=== PATIENT | female | born 1945 | race Caucasian/White ===

== ENCOUNTER 2016-05-18 10:39 | Inpatient (IN) | payer MEDICARE ==
[2016-05-18] MEDS ORDERED: SODIUM CHLORIDE 0.9% 500 ML IV STA (10:56)
--- NOTE | 2016-05-18 11:08 | ED ---
General Adult HPI - General Stated complaint: General Weakness Time Seen by Provider: 05/18/16 10:52 Source: patient, EMS, RN notes reviewed Mode of arrival: EMS Limitations: physical limitation - History of Present Illness Initial comments: 70-year-old female presents emergency Department chief complaint of weakness, fall. Patient states that he has chronic severe lymphedema of bilateral lower extremities and states that she is essentially nonambulatory. Patient states that she has seen multiple physicians for this and currently sees visiting physicians. Patient states that over the last few days she's had nausea vomiting diarrhea. States that she feels very rundown, weak. Patient states that she tried to get up and fell today. She states when the lift her off the ground that she believes that her legs were injured in that she has some bleeding/leaking. Patient has had anemia in the past in which she's been transfused between her lower extremities and her vaginal bleeding that she's had in the past. Patient denies any known fever, chills. Patient denies any chest pain, shortness of breath. - Related Data Home Medications Medication Instructions Recorded Confirmed Cranberry Conc/C/Bacill Coag 1 tab PO HS 04/26/14 05/18/16 [Cranberry Tablet] [place]-3 Fatty Acids/Fish Oil [Fish 2 cap PO HS 04/26/14 05/18/16 Oil 1,000 mg Softgel] Oxybutynin Chloride [Ditropan] 5 mg PO TID 04/26/14 05/18/16 Ferrous Sulfate [Iron (65 MG 325 mg PO TID 07/04/14 05/18/16 Elemental)] Cholecalciferol [Vitamin D3] 1,000 unit PO DAILY 01/27/15 05/18/16 Cyanocobalamin [Vitamin B-12] 500 mcg PO DAILY 01/27/15 05/18/16 ALPRAZolam [Xanax] 0.25 mg PO DAILY PRN 05/10/15 05/18/16 Megestrol [Megace] 80 mg PO BID 05/18/16 05/18/16 NIFEdipine XL [Procardia Xl] 30 mg PO DAILY 05/18/16 05/18/16 traMADol HCL [Ultram] 50 mg PO BID PRN 05/18/16 05/18/16 Previous Rx's Medication Instructions Recorded cloNIDine HCL [Catapres] 0.2 mg PO TID tab 10/18/15 Allergies Allergy/AdvReac Type Severity Reaction Status Date / Time hydrocodone AdvReac Hallucinati Verified 05/18/16 12:35 ons Review of Systems ROS Statement: Those systems with pertinent positive or pertinent negative responses have been documented in the HPI. ROS Other: All systems not noted in ROS Statement are negative. Past Medical History Past Medical History: Cancer, Hyperlipidemia, Hypertension, Osteoarthritis (OA) , Pneumonia Additional Past Medical History / Comment(s): urinary leakage, BILATERAL BREAST CANCER, LYMPHEDEMA BILATERAL LEGS only walks short distances and unable to drive in a car. [place] visitng physicians, sores on back of legs that bleed periodically , NO BLOOD PRESSURE on LEFTARM due ot lymph node removal chronic anemia since 2013, UTI'S, on gout medicine for increase uric acid level but stated never ahd a flare up of gout. morbid obesity cellulitis of lower extremities History of Any Multi-Drug Resistant Organisms: None Reported Past Surgical History: Adenoidectomy, Breast Surgery, Tonsillectomy Additional Past Surgical History / Comment(s): partial mastectomy left breast, LUMPECTOMY REMOVED FROM RIGHT BREAST, CHEMO AND RAD ON LEFT BREAST, RADIATION ON RIGHT BREAST, lymphnodes removed left breast Past Anesthesia/Blood Transfusion Reactions: No Reported Reaction Past Psychological History: No Psychological Hx Reported, Anxiety Additional Psychological History / Comment(s): Patient relates that her upper body has gone from a 4X to a 1X size. No experience. No travels. No animal exposures. Smoking Status: Never smoker Past Alcohol Use History: None Reported Past Drug Use History: None Reported - Past Family History Father Family Medical History: Coronary Artery Disease (CAD), Diabetes Mellitus Additional Family Medical History / Comment(s): has a pig valve Mother Family Medical History: Chest Pain / Angina, Diabetes Mellitus Additional Family Medical History / Comment(s): weak heart General Exam General appearance: alert, in no apparent distress, obese Head exam: Present: atraumatic, normocephalic, normal inspection Eye exam: Present: normal appearance, PERRL, EOMI. Absent: scleral icterus, conjunctival injection, periorbital swelling Respiratory exam: Present: normal lung sounds bilaterally. Absent: respiratory distress, wheezes, rales, rhonchi, stridor Cardiovascular Exam: Present: regular rate, normal rhythm, normal heart sounds. Absent: systolic murmur, diastolic murmur, rubs, gallop, clicks GI/Abdominal exam: Present: soft, normal bowel sounds. Absent: distended, tenderness, guarding, rebound, rigid Extremities exam: Present: other (Bilateral lower extremities there is severe lymphedema noted there is some weeping areas) Neurological exam: Present: alert, oriented X3, CN II-XII intact Skin exam: Present: warm, dry, intact, normal color. Absent: rash Course Vital Signs 05/18/16 11:04 Temperature 96.7 F L Pulse Rate 111 H Respiratory 20 Rate Blood Pressure 155/70 O2 Sat by Pulse 100 Oximetry Medical Decision Making - Lab Data Result diagrams: 05/18/16 11:53 05/18/16 11:53 Lab Results 05/18/16 05/18/16 05/18/16 Range/Units 11:53 11:53 11:53 WBC 19.3 H (3.8-10.6) k/uL RBC 3.68 L (3.80-5.40) m/uL Hgb 9.8 L (11.4-16.0) gm/dL Hct 32.0 L (34.0-46.0) % MCV 86.9 (80.0-100.0) fL MCH 26.6 (25.0-35.0) pg MCHC 30.6 L (31.0-37.0) g/dL RDW 15.0 (11.5-15.5) % Plt Count 362 (150-450) k/uL Neutrophils % 91 % Lymphocytes % 2 % Monocytes % 6 % Eosinophils % 0 % Basophils % 0 % Neutrophils # 17.6 H (1.3-7.7) k/uL Lymphocytes # 0.4 L (1.0-4.8) k/uL Monocytes # 1.1 H (0-1.0) k/uL Eosinophils # 0.1 (0-0.7) k/uL Basophils # 0.0 (0-0.2) k/uL Manual Slide Review Performed Hypochromasia Marked Poikilocytosis (manual Present PT 10.2 (9.0-12.0) sec INR 1.0 (<1.1) APTT 19.2 L (22.0-30.0) sec Sodium 131 L (137-145) mmol/L Potassium 6.8 H* (3.5-5.1) mmol/L Chloride 106 (98-107) mmol/L Carbon Dioxide 12 L (22-30) mmol/L Anion Gap 13 mmol/L BUN 70 H (7-17) mg/dL Creatinine 2.37 H (0.52-1.04) mg/dL Est GFR (MDRD) Af Amer 25 (>60 ml/min/1.73 sqM) Est GFR (MDRD) Non-Af 20 (>60 ml/min/1.73 sqM) Glucose 147 H (74-99) mg/dL Plasma Lactic Acid Salvador (0.7-2.0) mmol/L Calcium 9.7 (8.4-10.2) mg/dL Magnesium 2.2 (1.6-2.3) mg/dL Total Bilirubin 0.6 (0.2-1.3) mg/dL AST 19 (14-36) U/L ALT 29 (9-52) U/L Alkaline Phosphatase 96 (38-126) U/L Total Creatine Kinase (30-135) U/L CK-MB (CK-2) (0.0-2.4) ng/mL CK-MB (CK-2) Rel Index Troponin I (0.000-0.034) ng/mL NT-Pro-B Natriuret Pep pg/mL Total Protein 5.8 L (6.3-8.2) g/dL Albumin 2.7 L (3.5-5.0) g/dL 05/18/16 05/18/16 05/18/16 Range/Units 11:53 11:53 11:53 WBC (3.8-10.6) k/uL RBC (3.80-5.40) m/uL Hgb (11.4-16.0) gm/dL Hct (34.0-46.0) % MCV (80.0-100.0) fL MCH (25.0-35.0) pg MCHC (31.0-37.0) g/dL RDW (11.5-15.5) % Plt Count (150-450) k/uL Neutrophils % % Lymphocytes % % Monocytes % % Eosinophils % % Basophils % % Neutrophils # (1.3-7.7) k/uL Lymphocytes # (1.0-4.8) k/uL Monocytes # (0-1.0) k/uL Eosinophils # (0-0.7) k/uL Basophils # (0-0.2) k/uL Manual Slide Review Hypochromasia Poikilocytosis (manual PT (9.0-12.0) sec INR (<1.1) APTT (22.0-30.0) sec Sodium (137-145) mmol/L Potassium (3.5-5.1) mmol/L Chloride (98-107) mmol/L Carbon Dioxide (22-30) mmol/L Anion Gap mmol/L BUN (7-17) mg/dL Creatinine (0.52-1.04) mg/dL Est GFR (MDRD) Af Amer (>60 ml/min/1.73 sqM) Est GFR (MDRD) Non-Af (>60 ml/min/1.73 sqM) Glucose (74-99) mg/dL Plasma Lactic Acid Salvador 1.7 (0.7-2.0) mmol/L Calcium (8.4-10.2) mg/dL Magnesium (1.6-2.3) mg/dL Total Bilirubin (0.2-1.3) mg/dL AST (14-36) U/L ALT (9-52) U/L Alkaline Phosphatase (38-126) U/L Total Creatine Kinase 174 H (30-135) U/L CK-MB (CK-2) 2.8 H* (0.0-2.4) ng/mL CK-MB (CK-2) Rel Index 1.6 Troponin I <0.012 (0.000-0.034) ng/mL NT-Pro-B Natriuret Pep 700 pg/mL Total Protein (6.3-8.2) g/dL Albumin (3.5-5.0) g/dL Disposition Clinical Impression: Dehydration, Hyperkalemia, Acute kidney injury, Lymphedema of both lower extremities, Nausea & vomiting Disposition: ADMITTED IP TO THIS [facility] Condition: Stable
[2016-05-18 12:27] LABS: Calcium 9.7 mg/dL (8.4-10.2); Magnesium 2.2 mg/dL (1.6-2.3); Total Bilirubin 0.6 mg/dL (0.2-1.3); Total Protein 5.8 g/dL (6.3-8.2)
--- NOTE | 2016-05-18 12:30 | XR ---
EXAMINATION TYPE: XR chest 2V DATE OF EXAM: 05/18/2016 12:23 PM COMPARISON: 02/03/2015 HISTORY: Weakness and nausea TECHNIQUE: Frontal and lateral views of the chest are obtained. FINDINGS: Heart is normal. Lungs are clear. Costophrenic angles are clear. There are no hilar masses . The bony thorax is intact. There is probably osteopenia. Thoracic aorta is atheromatous. IMPRESSION: No active cardiopulmonary disease. There is clearing of pleural reaction or fluid at the lung bases compared to old exam.
[2016-05-18 12:31] LABS: Potassium 6.8 mmol/L (3.5-5.1)
[2016-05-18 12:33] LABS: Basophils % (A) 0 %; CH 26.7; CHCM 30.8; Eosinophils # (A) 0.1 k/uL (0-0.7); Eosinophils % (A) 0 %; HGB 9.8 gm/dL (11.4-16.0); Hypochromasia Marked; Luc # (Auto) 0.15; Luc % (Auto) 1; Lymphocytes # (A) 0.4 k/uL (1.0-4.8); Lymphocytes % (A) 2 %; MCH 26.6 pg (25.0-35.0); MCHC 30.6 g/dL (31.0-37.0); MCV 86.9 fL (80.0-100.0); Mean Platelet Volume 7.6; Monocytes # (A) 1.1 k/uL (0-1.0); Monocytes % (A) 6 %; Neutrophils # (A) 17.6 k/uL (1.3-7.7); Neutrophils % (A) 91 %; RBC 3.68 m/uL (3.80-5.40); WBC 19.3 k/uL (3.8-10.6); WBC (Perox) 19.45
[2016-05-18] MEDS ORDERED: SODIUM BICARB 8.4% 50 ML SYR (1 MEQ/ML) IV STA (12:47)
[2016-05-18] MEDS ORDERED: INSULIN REGULAR 100 UNIT/ML VIAL IV ONE (12:47)
[2016-05-18] MEDS ORDERED: DEXTROSE 50%-WATER 50 ML SYRINGE IVP STA (12:47)
[2016-05-18] MEDS ORDERED: SODIUM POLYSTYRENE SULFONATE 15 GM/60 ML BOTTLE PO STA ×2 (12:48→22:04)
[2016-05-18 12:49] LABS: Manual Review Performed
[2016-05-18 12:57] LABS: Creatine Kinase 174 U/L (30-135)
[2016-05-18 13:10] LABS: Troponin I <0.012 ng/mL (0.000-0.034)
[2016-05-18 13:15] LABS: Creatine Kinase MB 2.8 ng/mL (0.0-2.4)
[2016-05-18 13:23] LABS: Prothrombin Time 10.2 sec (9.0-12.0)
[2016-05-18] MEDS ORDERED: SODIUM CHLORIDE 0.9% 1,500 ML IV ONE (13:23)
[2016-05-18 13:26] LABS: Partial Thromboplastin Time 19.2 sec (22.0-30.0)
[2016-05-18] MEDS ORDERED: ONDANSETRON 4 MG/2 ML VIAL IVP PRN (13:43)
[2016-05-18] MEDS ORDERED: NALOXONE 0.4 MG/ML 1 ML VIAL IV PRN (13:43)
[2016-05-18] MEDS ORDERED: ACETAMINOPHEN TAB 325 MG TAB PO PRN (13:43)
[2016-05-18 13:50] LABS: Appearance,Urine Cloudy (Clear); Bacteria,Urine Many /hpf; Bilirubin,Urine Negative (Negative); Glucose,Urine (UA) Negative (Negative); Ketones,Urine Negative (Negative); Leukocyte Esterase,Urine Large (Negative); Mucus,Urine Occasional /hpf; Nitrite,Urine Negative (Negative); Particle Count 28576; Protein,Urine Trace (Negative); RBC,Urine 15 /hpf (0-5); Specific Gravity,Urine 1.014 (1.001-1.035); UA Billing (MACRO vs. MICRO) MICRO; Urobilinogen,Urine <2.0 mg/dL (<2.0); WBC,Urine 106 /hpf (0-5)
[2016-05-18] MEDS ORDERED: LEVOFLOXACIN 500MG-D5W PMX 500 MG in DEXTROSE/WATER 1 100ML.BAG IVPB STA (14:02)
[2016-05-18] MEDS: SODIUM CHLORIDE 0.9% 1,000 ML IV SCH (15:20)
[2016-05-18 15:33] LABS: Glucose,Whole Blood 118 mg/dL (75-99)
[2016-05-18] MEDS ORDERED: FERROUS SULFATE 325 MG TAB PO SCH (18:00)
[2016-05-18] MEDS: OXYBUTYNIN CHLORIDE 5 MG TAB PO SCH (18:36)
[2016-05-18] MEDS: cloNIDine HCL 0.2 MG TAB PO SCH (18:36)
[2016-05-18 21:05] LABS: Calcium 9.2 mg/dL (8.4-10.2); Potassium 5.8 mmol/L (3.5-5.1)
[2016-05-19] MEDS: ALPRAZolam 0.25 MG TAB PO PRN (04:32)
[2016-05-19 07:48] LABS: Potassium 4.7 mmol/L (3.5-5.1)
[2016-05-19] MEDS ORDERED: PANTOPRAZOLE 40 MG/10 ML VIAL IV SCH (09:00)
[2016-05-19] MEDS: MEGESTROL 40 MG TAB PO SCH ×4 (09:17→20:53)
[2016-05-19] MEDS: NIFEdipine XL 30 MG TAB.ER.24 PO SCH (09:17)
[2016-05-19] MEDS: OXYBUTYNIN CHLORIDE 5 MG TAB PO SCH ×4 (09:17→20:52)
[2016-05-19] MEDS: cloNIDine HCL 0.2 MG TAB PO SCH ×4 (09:17→20:52)
--- NOTE | 2016-05-19 12:42 | HP ---
DATE OF ADMISSION: 05/18/2016 PRESENTING COMPLAINT: Weak and tired. HISTORY OF PRESENTING COMPLAINT: This is a very pleasant lady with is a very unfortunate condition to include, which is chronic severe disfiguring lymphedema with severe renal stasis and stasis dermatitis lower extremity. Other chronic stable conditions include essential hypertension, osteoarthritis, chronic urinary incontinence, chronic vascular lesion of the lower back. The patient pretty much sits up in a chair and has her legs weep all the time and can give bedpan when she needs it. The patient developed flu like illness at home. Nausea, vomiting, tired, unable to eat and went to the bathroom fell down and was unable to get up and EMS had to be called out. Patient is feeling very weak and tired. When she arrived here, she was found to have potassium of 6.8. BUN 70, creatinine of 2.37, acute renal failure, also found to have a UTI and she is being admitted. is at bedside. Has been at the bedside. REVIEW OF SYSTEMS: CONSTITUTIONAL: Tired. HEENT: None. RESPIRATORY: None. CARDIOVASCULAR: None. GASTROINTESTINAL: None. GENITOURINARY: Urinary frequency. Dermatological: Chronic skin changes. HEMATOLOGICAL: None. LYMPHATIC: None. PSYCHIATRY: None. Past medical history of chronic disfigured lymphedema with severe renal status and stasis dermatitis, obesity; body mass index 60, essential hypertension, osteoarthritis, chronic urinary incontinence. Medical debility, chronic vascular lesion of the lower back. PAST SURGICAL HISTORY: Adenoidectomy, breast surgery, tonsillectomy, partial mastectomy left breast, lumpectomy removal right breast, chemo and radiation the left breast, lymph node removed from her left breast; additional past medical history includes chronic anemia and hyperuricemia. SOCIAL HISTORY: . No smoking. No alcohol. FAMILY HISTORY: Diabetes mellitus. HOME MEDICATIONS: 1. Ultram 50 mg p.o. b.i.d. p.r.n. 2. Catapres 0.2 mg p.o. t.i.d. 3. Ditropan 5 mg p.o. t.i.d. 4. Fish oil 2 capsules p.o. q.h.s. 5. Procardia XL 30 mg a day. 6. Megace 80 mg b.i.d., 7. Vitamin B12 500 mcg a day. 8. Cranberry tablet, 1 tablet p.o. q.h.s. 9. Vitamin D 3000 units p.o. daily. 10. Xanax 0.25 p.o. daily p.r.n. ALLERGY TO HYDROCODONE. PHYSICAL EXAMINATION: Vital signs on presentation: Temperature 96.7, pulse 101, respiration 20, blood pressure 115/60, pulse ox 100% on 2 liters. GENERAL APPEARANCE: Morbidly obese, BMI ( ) lying in bed, tired-appearing. EYES: Pupils equal. Conjunctivae normal. HEENT: External appearance of nose and ears normal. Oral cavity dry. NECK: JVD unable to assess. Mass not palpable. RESPIRATORY: Effort increased. LUNGS: Distant breath sounds. CARDIOVASCULAR: Heart sounds muffled. ABDOMEN: Distended. Large. Lower extremities venostasis. Stasis dermatitis from breakdown of skin. INVESTIGATIONS: White count 19.3, hemoglobin 9.8, potassium 6.8. BUN 70, creatinine 2.37. UA positive for leukocyte esterase, WBC. ASSESSMENT: 1. Possible urinary tract infection with sepsis, present on admission. 2. Acute severe renal failure, likely prerenal from decreased oral intake. 3. Hyperkalemia in the setting of renal failure. 4. Chronic severe disfiguring lymphedema with severe venous stasis and chronic stasis dermatitis of both lower extremities. 5. Obesity, body mass index more than 58. 6. Essential hypertension. 7. Bilateral osteoarthritis, chronic. 8. Chronic urinary stress incontinence. 9. Medical debility, unable to carry out ADLs. 10. Chronic ( ) lower back. PLAN: Patient is put on IV fluids, ceftriaxone. Home medications will be resumed. Will give the patient Kayexalate. Care was discussed with the patient and son at the bedside. Questions were answered.
[2016-05-19] MEDS: SODIUM CHLORIDE 0.9% 1,000 ML IV SCH ×3 (15:16→20:57)
[2016-05-19] MEDS: traMADol 50 MG TAB PO PRN (21:42)
[2016-05-19] MEDS: ENOXAPARIN 40 MG/0.4 ML SYRINGE SQ SCH (21:44)
--- NOTE | 2016-05-19 22:54 | PN ---
DATE OF SERVICE: 05/19/2016 PRESENTING COMPLAINT: Weak and tired. INTERVAL HISTORY: I saw this patient this morning as part of the overflow in the ER whose chronic conditions ( ) disfiguring lymphedema. Patient presented with a UTI and sepsis and renal failure from decreased oral intake, hyperkalemia. She feels a shade better. Her is at the bedside. Did eat a little bit this morning. Review of systems done for constitutional, cardiovascular, GI, pulmonary; relevant findings as above. Current medications include IV ceftriaxone. On examination, afebrile, pulse 103, respiration 16, blood pressure 147/74, pulse ox 98% on room air. GENERAL APPEARANCE: Lying in bed, tired-appearing. EYES: Pupils equal. Conjunctivae normal. NECK: JVD not raised. Mass not palpable. RESPIRATORY: Effort normal. LUNGS: Distant breath sounds. CARDIOVASCULAR: First and second sounds normal. ABDOMEN: Soft, nontender. Skin changes unchanged. INVESTIGATIONS: Potassium 4.7. BUN 55, creatinine 1.94. Urine culture growing Gram-negative bacilli. ASSESSMENT: 1. Acute urinary tract infection with sepsis, growing Gram-negative bacilli, present on admission. 2. Acute severe renal failure, prerenal, from decreased oral intake, present on admission, slow to respond. 3. Hyperkalemia in the setting of renal failure, improving. 4. Chronic severe disfiguring lymphedema on both lower extremities with severe venostasis and chronic stasis dermatitis, lower extremities. 5. Obesity; body mass index more than 58. 6. Essential hypertension. 7. Bilateral osteoarthritis, chronic. 8. Chronic urinary stress incontinence. 9. Medical debility; unable to carry out activities of daily living. 10. Chronic hemangioma on the lower back. PLAN: Continue current medication and treatment plan, including antibiotics. Patient will be maintained on IV fluids. Care was discussed with the patient and her at the bedside. Repeat labs.
[2016-05-20] MEDS: OXYBUTYNIN CHLORIDE 5 MG TAB PO SCH ×4 (00:39→21:10)
[2016-05-20] MEDS: cloNIDine HCL 0.2 MG TAB PO SCH ×4 (00:39→21:09)
[2016-05-20] MEDS: SODIUM CHLORIDE 0.9% 1,000 ML IV SCH ×3 (04:47→23:48)
[2016-05-20] MEDS: NIFEdipine XL 30 MG TAB.ER.24 PO SCH (08:08)
[2016-05-20] MEDS: MEGESTROL 40 MG TAB PO SCH ×2 (08:08→21:09)
[2016-05-20] MEDS: PANTOPRAZOLE 40 MG TABLET PO SCH (08:09)
[2016-05-20 09:19] VITALS: BMI 58.2
[2016-05-20 10:34] LABS: Calcium 8.5 mg/dL (8.4-10.2); Potassium 3.4 mmol/L (3.5-5.1)
[2016-05-20] MEDS: ENOXAPARIN 40 MG/0.4 ML SYRINGE SQ SCH (21:09)
[2016-05-21] MEDS: traMADol 50 MG TAB PO PRN (05:06)
[2016-05-21] MEDS: SODIUM CHLORIDE 0.9% 1,000 ML IV SCH ×3 (06:31→21:46)
--- NOTE | 2016-05-21 08:23 | PN ---
DATE OF SERVICE: 05/20/2016 PRESENTING COMPLAINT: Weak and tired. INTERVAL HISTORY: This is patient with disfiguring lymphedema presented with urinary tract infection with sepsis, renal failure, doing much better, is at bedside. Eating better. No further diarrhea. ( ) physical therapy. Review of systems for constitutional, cardiovascular, GI, pulmonary; relevant findings as above. Current medications reviewed that include IV ceftriaxone. On examination, temperature 98.3, pulse 94, respiration 20, blood pressure 160/70, pulse ox 99% on room air. GENERAL APPEARANCE: Lying in bed, awake, looking better. EYES: Pupils equal. Conjunctivae normal. NECK: JVD not raised. Mass not palpable. RESPIRATORY: Effort normal. LUNGS: Diminished distant breath sounds. CARDIOVASCULAR: Heart sounds muffled. ABDOMEN: Soft, nontender. ( ). PSYCHIATRY: Alert and oriented x3. Mood and affect better. INVESTIGATIONS: Potassium 3.4. BUN 41, creatinine 1.56. Micro is growing Escherichia coli. ASSESSMENT: 1. Acute urinary tract infection with sepsis growing Escherichia coli, present on admission. 2. Acute severe renal failure, prerenal from decreased oral intake present on admission, slowly improving. 3. Hyperkalemia in setting of renal failure improving. 4. Chronic severe disfiguring lymphedema of both lower extremities with severe venostasis and chronic stasis dermatitis lower extremity. 5. Obesity, body mass index more than 58. 6. Essential hypertension. 7. Bilateral osteoarthritis, chronic. 8. Chronic urinary stress incontinence. 9. Medical debility unable to care out activities of daily living. 10. Chronic hemangioma on the lower back. PLAN: Discussed with the patient and her . At the baseline; patient sits in a grandfather chair and walks four to seven steps at home. Will consider physical therapy. She thinks if she can do that, ( ) that she preferred to go home and otherwise will to go to [facility]. This was discussed with the patient and . This was also discussed with the counseling case manager Griselda.
[2016-05-21] MEDS: CEPHALEXIN 500 MG CAP PO SCH ×4 (08:35→21:39)
[2016-05-21] MEDS: cloNIDine HCL 0.2 MG TAB PO SCH ×3 (08:36→21:40)
[2016-05-21] MEDS: MEGESTROL 40 MG TAB PO SCH ×2 (08:36→21:37)
[2016-05-21] MEDS: NIFEdipine XL 30 MG TAB.ER.24 PO SCH (08:37)
[2016-05-21] MEDS: OXYBUTYNIN CHLORIDE 5 MG TAB PO SCH ×3 (08:37→21:40)
[2016-05-21] MEDS: PANTOPRAZOLE 40 MG TABLET PO SCH (08:37)
[2016-05-21] MEDS: ALPRAZolam 0.25 MG TAB PO PRN (08:45)
--- NOTE | 2016-05-21 18:27 | P.OBCN ---
History of Present Illness Consult date: 05/21/16 Requesting physician: Tommy Vance Reason for consult: other (Chronic vaginal bleeding) Chief complaint: Vaginal spotting History of present illness: This patient is a pleasant 70-year-old 3 para 2 female who is admitted to the hospital a few days ago after sustaining a fall. Patient has multiple chronic medical problems, please see the admission history and physical for these details, however I am being consult is on for vaginal bleeding. Patient' s gynecologic history is such that she was initially seen in April 2015 at [facility] by Dr. Gomez for similar problem. Evaluation at that time included a pelvic ultrasound and D&C which revealed benign pathology. Patient states that she continued to have bleeding on and off after that point and was seen in the emergency department here in October 2015 for similar complaints. At that time patient was transferred to [facility] due to her multiple comorbid problems and severe obesity. Patient informs me that at that time she had a another D&C done at [facility] that again showed benign pathology. Patient with subsequent a placed on Megace by the appraisal specialist there. She states that she continues to have on and off bleeding however it is not that copious in nature. She says she really cannot see how much bleeding she is having due to her severe lymphedema and obesity. In discussion with her and her it appears that she only has a quarter size dark red clot once in a while but no profuse bleeding, flooding or excessively large clots. Patient's hemoglobin back in October was 7.7. Since being on the Megace her most recent hemoglobin on admission here was 9.8. Review of Systems Constitutional: Reports as per HPI Genitourinary: Reports as per HPI, Reports abnormal vaginal bleeding Menstruation: Reports postmenopausal Past Medical History Past Medical History: Cancer, Hyperlipidemia, Hypertension, Osteoarthritis (OA) , Pneumonia Additional Past Medical History / Comment(s): Current decubitus ulcer, vaginal bleeding summer 2015 and transfered to [facility]-had D&C-bx negative, urinary leakage , BILATERAL BREAST CANCER with surgery and chemo/radiation, severe LYMPHEDEMA BILATERAL LEGS only walks short distances, venostasis-past sores on back of legs that bled periodically, past lower leg cellulitis, chronic anemia since 2013, UTI'S, on gout medicine for increase uric acid level but stated never had flare up of gout. morbid obesity History of Any Multi-Drug Resistant Organisms: None Reported Past Surgical History: Adenoidectomy, Breast Surgery, Tonsillectomy Additional Past Surgical History / Comment(s): partial mastectomy left breast, LUMPECTOMY RIGHT BREAST, lymph nodes removed left axillae. Past Anesthesia/Blood Transfusion Reactions: No Reported Reaction Additional Past Anesthesia/Blood Transfusion Reaction / Comm: Pt has received blood in past without reaction. Past Psychological History: No Psychological Hx Reported, Anxiety Additional Psychological History / Comment(s): Patient relates that her upper body has gone from a 4X to a 1X size. No experience. No travels. No animal exposures. Pt resides with her spouse and adult jessica. She uses a cane/ walker to walk short distances. She has a W/C. Smoking Status: Never smoker Past Alcohol Use History: None Reported Past Drug Use History: None Reported - Past Family History Father Family Medical History: Coronary Artery Disease (CAD), Diabetes Mellitus Additional Family Medical History / Comment(s): has a porcine valve Mother Family Medical History: Chest Pain / Angina, Diabetes Mellitus Additional Family Medical History / Comment(s): weak heart Medications and Allergies Home Medications Medication Instructions Recorded Confirmed Type Cranberry Conc/C/Bacill Coag 1 tab PO HS 04/26/14 05/18/16 History [Cranberry Tablet] [place]-3 Fatty Acids/Fish Oil [Fish 2 cap PO HS 04/26/14 05/18/16 History Oil 1,000 mg Softgel] Oxybutynin Chloride [Ditropan] 5 mg PO TID 04/26/14 05/18/16 History Ferrous Sulfate [Iron (65 MG 325 mg PO TID 07/04/14 05/18/16 History Elemental)] Cholecalciferol [Vitamin D3] 1,000 unit PO DAILY 01/27/15 05/18/16 History Cyanocobalamin [Vitamin B-12] 500 mcg PO DAILY 01/27/15 05/18/16 History ALPRAZolam [Xanax] 0.25 mg PO DAILY PRN 05/10/15 05/18/16 History Megestrol [Megace] 80 mg PO BID 05/18/16 05/18/16 History NIFEdipine XL [Procardia Xl] 30 mg PO DAILY 05/18/16 05/18/16 History traMADol HCL [Ultram] 50 mg PO BID PRN 05/18/16 05/18/16 History Allergies Allergy/AdvReac Type Severity Reaction Status Date / Time hydrocodone AdvReac Hallucinati Verified 05/18/16 12:35 ons Exam - Vital Signs Vital signs: Vital Signs Temp Pulse Resp BP Pulse Ox 05/21/16 07:00 97.2 F L 100 21 147/82 98 05/20/16 23:00 97.3 F L 87 19 127/60 100 Intake and Output 05/21/16 05/21/16 05/21/16 06:59 14:59 22:59 Intake Total 1000 Output Total 600 Balance 400 Intake: Intake, IV Titration 1000 Amount Sodium Chloride 0.9% 1, 1000 000 ml @ 125 mls/hr IV . Q8H [facility] Rx#:[id number] Output: Urine 600 Other: Voiding Method Indwelling Catheter Indwelling Catheter # Bowel Movements 1 No examination is done due to the patient's severe obesity and bedridden status. Results Result Diagrams: 05/18/16 11:53 05/20/16 09:41 Assessment and Plan (1) Vaginal bleeding Narrative/Plan: This is a pleasant 70-year-old 3 para 2 female with known chronic vaginal bleeding/spotting and negative evaluation for malignancy. Patient's vaginal bleeding is most likely secondary to her hyperestrogenic state due to severe obesity. Patient's bleeding appears to be minimal on her current regimen of Megace. There does not appear to be significant enough bleeding to cause her any hemodynamic compromise. She is at significant risk for further surgeries. I had a long discussion with the patient and her and they understand that although this bleeding may be a "nuisance", it is not causing her any significant medical harm in regards to cancer or anemia. In her specific case the risks of further surgery completely outweigh the benefits. My recommendations are to continue her Megace as ordered by [facility] and no further surgical intervention or evaluation at this time. If she were to need surgical intervention due to increased significant bleeding, then transfer to a tertiary facility again would be indicated due to the complexity and risks of the surgery. Status: Chronic
--- NOTE | 2016-05-21 21:43 | PN ---
DATE OF SERVICE: 05/21/2016 PRESENTING COMPLAINT: Weak and tired. INTERVAL HISTORY: This patient with disfiguring lymphedema presented with UTI with sepsis, renal failure. Continues to do much better. Tolerating a diet. Patient was having significant vaginal bleeding. She has had D&C before twice last year at least. Review of systems done for constitutional, cardiovascular, GI, pulmonary, genitourinary; relevant findings as above. Current medications are reviewed that include Keflex. On examination, temperature 97.2, pulse 100, respiration 21, blood pressure 147/82, pulse ox 98% on room air. GENERAL APPEARANCE: Lying in bed. Looking more comfortable. EYES: Pupils equal. Conjunctivae pale. NECK: JVD not raised. Mass not palpable. RESPIRATORY: Effort normal. LUNGS: Distant breath sounds. CARDIOVASCULAR: Heart sounds muffled. ABDOMEN: Soft, nontender. Liver and spleen not palpable. PSYCHIATRY: Alert and oriented x3. Mood and affect normal. DERMATOLOGICAL: Chronic skin changes. INVESTIGATIONS: Potassium 3.4. BUN 41, creatinine 1.56. Urine culture growing E coli. ASSESSMENT: 1. Acute urinary tract infection with sepsis growing Escherichia coli, present on admission. 2. Acute severe renal failure, prerenal, from decreased oral intake, present at admission. Sloving improving. 3. Hyperkalemia in the setting of renal failure, improved. 4. 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 5. Obesity; body mass index more than 58. 6. Essential hypertension. 7. Bilateral osteoarthritis, chronic. 8. Chronic urinary stress incontinence. 9. Medical debility; unable to carry out activities of daily living. 10. Chronic large hemangioma on the back. 11. Menorrhagia, recurrent. 12. Medical debility. PLAN: Spoke to the physical therapist. The patient is just about able to get up. Patient is still very keen to go home. I did talk to her, that if she is not able to walk at least the few steps that she does at home, she will have to go to rehab. She is requesting AIR GUN OPERATOR to see her to see what can be done. I did talk about one of the options being endometrial ablation, as she has had D&C before. AIR GUN OPERATOR consultation will be done. Care was discussed with her at the bedside and with the nurse.
[2016-05-22] MEDS: traMADol 50 MG TAB PO PRN (04:56)
[2016-05-22] MEDS: SODIUM CHLORIDE 0.9% 1,000 ML IV SCH ×2 (06:17→11:51)
[2016-05-22] MEDS: CEPHALEXIN 500 MG CAP PO SCH (08:00)
[2016-05-22] MEDS: MEGESTROL 40 MG TAB PO SCH ×2 (08:00→21:30)
[2016-05-22] MEDS: cloNIDine HCL 0.2 MG TAB PO SCH ×3 (08:00→21:31)
[2016-05-22] MEDS: OXYBUTYNIN CHLORIDE 5 MG TAB PO SCH ×3 (08:01→21:31)
[2016-05-22] MEDS: PANTOPRAZOLE 40 MG TABLET PO SCH (08:01)
[2016-05-22] MEDS: NIFEdipine XL 30 MG TAB.ER.24 PO SCH (08:01)
[2016-05-22 09:42] LABS: Basophils % (A) 0 %; CH 26.2; CHCM 30.3; Eosinophils # (A) 0.3 k/uL (0-0.7); Eosinophils % (A) 4 %; HDW 3.73; Hypochromasia Marked; Luc # (Auto) 0.09; Luc % (Auto) 1; Lymphocytes # (A) 0.4 k/uL (1.0-4.8); Lymphocytes % (A) 5 %; MCH 26.3 pg (25.0-35.0); MCHC 30.4 g/dL (31.0-37.0); MCV 86.5 fL (80.0-100.0); Mean Platelet Volume 7.2; Monocytes # (A) 0.4 k/uL (0-1.0); Monocytes % (A) 6 %; Neutrophils # (A) 6.4 k/uL (1.3-7.7); Neutrophils % (A) 84 %; Poikilocytosis Slight; RBC 3.12 m/uL (3.80-5.40); RDW 15.2 % (11.5-15.5); WBC 7.7 k/uL (3.8-10.6); WBC (Perox) 7.49
[2016-05-22 09:51] LABS: HGB 8.2 gm/dL (11.4-16.0)
[2016-05-22 10:10] LABS: Calcium 8.6 mg/dL (8.4-10.2); Potassium 4.9 mmol/L (3.5-5.1)
[2016-05-22] MEDS: ALPRAZolam 0.25 MG TAB PO PRN (10:36)
[2016-05-22] MEDS: CEPHALEXIN 250 MG CAP PO SCH ×3 (11:46→21:31)
[2016-05-22] MEDS ORDERED: SODIUM CHLORIDE 0.45% 1,000 ML IV SCH (14:00)
[2016-05-22 15:14] LABS: Basophils % (A) 0 %; CH 26.2; CHCM 30.5; Eosinophils # (A) 0.3 k/uL (0-0.7); Eosinophils % (A) 4 %; HCT 25.8 % (34.0-46.0); HDW 3.78; HGB 7.9 gm/dL (11.4-16.0); Hypochromasia Marked; Luc # (Auto) 0.15; Luc % (Auto) 2; Lymphocytes # (A) 0.4 k/uL (1.0-4.8); Lymphocytes % (A) 6 %; MCH 26.5 pg (25.0-35.0); MCHC 30.7 g/dL (31.0-37.0); MCV 86.3 fL (80.0-100.0); Mean Platelet Volume 7.3; Monocytes # (A) 0.4 k/uL (0-1.0); Monocytes % (A) 6 %; Neutrophils % (A) 82 %; Poikilocytosis Slight; RBC 2.98 m/uL (3.80-5.40); RDW 15.2 % (11.5-15.5); WBC 7.3 k/uL (3.8-10.6); WBC (Perox) 7.74
[2016-05-22 15:24] LABS: Calcium 8.2 mg/dL (8.4-10.2); Potassium 4.2 mmol/L (3.5-5.1)
[2016-05-22] MEDS: SODIUM CHLORIDE 0.45% 1,000 ML with SODIUM BICARB (1 MEQ/ML) 100 ML IV SCH ×2 (16:20)
[2016-05-22 23:39] VITALS: TEMP 97.2
[2016-05-23] MEDS: SODIUM CHLORIDE 0.45% 1,000 ML with SODIUM BICARB (1 MEQ/ML) 100 ML IV SCH ×6 (02:12→15:22)
[2016-05-23] MEDS: traMADol 50 MG TAB PO PRN ×2 (04:20→15:15)
[2016-05-23] MEDS: PANTOPRAZOLE 40 MG TABLET PO SCH (07:49)
[2016-05-23] MEDS: NIFEdipine XL 30 MG TAB.ER.24 PO SCH (07:49)
[2016-05-23] MEDS: MEGESTROL 40 MG TAB PO SCH (07:49)
[2016-05-23] MEDS: cloNIDine HCL 0.2 MG TAB PO SCH ×2 (07:49→15:15)
[2016-05-23] MEDS: OXYBUTYNIN CHLORIDE 5 MG TAB PO SCH ×2 (07:49→15:15)
[2016-05-23] MEDS: CEPHALEXIN 250 MG CAP PO SCH ×2 (07:49→12:08)
[2016-05-23 08:36] LABS: Calcium 8.1 mg/dL (8.4-10.2)
[2016-05-23 08:41] LABS: Potassium 4.4 mmol/L (3.5-5.1)
[2016-05-23 08:54] VITALS: BP 144/72; PULSE 95; RESP 18
--- NOTE | 2016-05-23 13:58 | DS ---
DATE OF ADMISSION: 05/18/2016 DATE OF DISCHARGE: 05/23/2016 FINAL DIAGNOSES: 1. Acute severe urinary tract infection with sepsis growing Escherichia coli, present on admission. 2. Acute severe renal failure, prerenal from decreased oral intake, present on admission. 3. Possibly chronic kidney disease from nephrosclerosis stage II. 4. Hyperkalemia in a setting of renal failure, improved. 5. 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 6. Obesity, body mass index more than 58. 7. Essential hypertension. 8. Bilateral osteoarthritis, chronic. 9. Chronic urinary stress incontinence. 10. Medical debility, unable to carry out activities of daily living. 11. Chronic large hemangioma on the back. 12. Menorrhagia, recurrent. 13. Medical debility. HOSPITAL COURSE: This patient presented with UTI and sepsis, renal failure. Patient's BUN and creatinine was 55 and 1.94 on admission did go down to 23 and 1.37 by the time of discharge. The patient is felt to have chronic element. Patient is also having vaginal bleeding, seen Dr. Kirk from DRYING FRAME OPERATOR. If this becomes a problem, she may need further intervention down at [facility] where she has had her previous intervention. Today care was discussed with the patient and the . Questions were answered. ON EXAMINATION: LUNGS: Distant breath sounds. CARDIOVASCULAR: Heart sounds muffled. LABS: Today, last hemoglobin 7.9. BUN 23, creatinine 1.37. DISCHARGE MEDICATIONS: 1. Cranberry tablet 1 tablet p.o. q.h.s. 2. Fish oil 1000 mg 2 capsules p.o. q.h.s. 3. Ditropan 5 mg p.o. t.i.d. 4. Iron 325 mg p.o. t.i.d. 5. Vitamin D3, 1000 units p.o. daily. 6. Vitamin B12, 500 mcg p.o. daily. 7. Catapres 0.2 mg p.o. t.i.d. 8. Megace 80 mg p.o. b.i.d. 9. Procardia XL 30 mg p.o. daily. 10. Xanax 0.25 mg daily p.r.n. 11. Keflex 250 mg p.o. q.i.d. 12 capsules. 12. Ultram 50 mg p.o. b.i.d. p.r.n. for pain. DISPOSITION: [facility]. When patient is discharged from there, he should follow up with [facility]. LABS: CBC, BMP in 3 days. SPECIAL NOTE: If patient has excessive vaginal bleeding, she should be transferred to [facility] for intervention as this can only be done at a tertiary center. Discharge planning more than 35 minutes.
[2016-05-23] MEDS: ALPRAZolam 0.25 MG TAB PO PRN (15:15)
--- NOTE | 2016-05-23 18:08 | PN ---
DATE OF SERVICE: 05/22/2016 PRESENTING COMPLAINT: Weak and tired. INTERVAL HISTORY: This patient was seen by me yesterday on 05/22/2016. The patient presented with urinary tract infection with sepsis, renal failure, renal function greatly improved. Looking at patient is getting to ECF, per CHEMICAL ENGINEERING TEACHER. If patient needs a D&C, she has to go to the tertiary center at [facility]. This was discussed with the patient. Review of systems done for constitutional, cardiovascular, GI, pulmonary; relevant findings as above. Current medications are reviewed. On examination, temperature 98, pulse 69, respiratory rate 20, blood pressure 149/72, pulse ox 100% on room air. GENERAL APPEARANCE: Propped up in bed, comfortable. EYES: Pupils equal. Conjunctivae pale. NECK: JVD not raised. Mass not palpable. RESPIRATORY: Effort normal. LUNGS: Distant breath sounds. CARDIOVASCULAR: Heart sounds muffled. ABDOMEN: Soft, nontender. Liver and spleen not palpable. PSYCHIATRY: Alert and oriented times three. Mood and affect normal. Dermatological: Unchanged. Investigations: Hemoglobin is 7.9. Potassium 4.2, BUN 23, creatinine 1.30. ASSESSMENT: 1. Acute urinary tract infection with sepsis growing Escherichia coli, present on admission. 2. Acute severe renal failure, prerenal from decreased oral intake present at admission. Slowly improving. 3. Hyperkalemia setting of renal failure, improved. 4. 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 5. Obesity; body mass index more than ( ). 6. Essential hypertension. 7. Bilateral osteoarthritis, chronic. 8. Chronic urinary stress incontinence. 9. Medical debility unable to carry out activities of daily living. 10. Chronic large hemangioma on the back. 11. Menorrhagia, recurrent. 12. Medical debility. PLAN: Continue current medication and treatment plan. Looking at discharge, ( ) the ECF when beds available.
== END 2016-05-23 16:18 | DRG 872 ==
LOC: EC 10:39 → 6SEL 13:43 → 4MS4W 05-19 13:32
PROVIDERS: ADMIT Hospitalist; ATTEND Hospitalist
DX: A41.51 Sepsis due to Escherichia coli [E. coli] (principal); N17.9 Acute kidney failure, unspecified; E87.5 Hyperkalemia; Z68.43 Body mass index [BMI] 50.0-59.9, adult; N39.0 Urinary tract infection, site not specified; E66.01 Morbid (severe) obesity due to excess calories; D18.00 Hemangioma unspecified site; D64.9 Anemia, unspecified; E78.5 Hyperlipidemia, unspecified; E86.0 Dehydration; I87.2 Venous insufficiency (chronic) (peripheral); I87.8 Other specified disorders of veins; I89.0 Lymphedema, not elsewhere classified; M10.9 Gout, unspecified; M47.9 Spondylosis, unspecified; N39.3 Stress incontinence (female) (male); N92.0 Excessive and frequent menstruation with regular cycle; Z82.49 Family history of ischemic heart disease and other diseases of the circulatory system; Z85.3 Personal history of malignant neoplasm of breast; Z92.21 Personal history of antineoplastic chemotherapy; Z92.3 Personal history of irradiation; Z79.899 Other long term (current) drug therapy; Z88.5 Allergy status to narcotic agent; I12.9 Hypertensive chronic kidney disease with stage 1 through stage 4 chronic kidney disease, or unspecified chronic kidney disease; N18.2 Chronic kidney disease, stage 2 (mild)
CPT/HCPCS: 36415; 51702; 71020; 80048; 80053; 81001; 82550; 82553; 83605; 83735; 83880; 84484; 85025; 85610; 85730; 86850; 86900; 86901; 87040; 87077; 87086; 87186; 93005; 94760; 96361; 96365

== ENCOUNTER 2016-06-17 22:20 | Inpatient (IN) | payer MEDICARE ==
[2016-06-17] MEDS ORDERED: ACETAMINOPHEN TAB 500 MG TAB PO STA (22:48)
[2016-06-17] MEDS ORDERED: IBUPROFEN 600 MG TAB PO STA (22:48)
--- NOTE | 2016-06-17 22:53 | ED ---
General Adult HPI - General Chief complaint: Fever Stated complaint: TAMIE Time Seen by Provider: 06/17/16 22:43 Source: patient, EMS, RN notes reviewed Mode of arrival: EMS Limitations: no limitations - History of Present Illness Initial comments: Patient is a pleasant 70-year-old female presenting to the emergency department complaining of feeling cold. Patient states this just started today. Patient really has no other complaints. No upper respiratory symptoms. No cough or dyspnea. No abdominal pain. No dysuria. Patient admits to feeling somewhat fatigued. Patient states she had some cold symptoms a week or so ago however that just lasted for a day or 2 then resolved. - Related Data Home Medications Medication Instructions Recorded Confirmed Cranberry Conc/C/Bacill Coag 1 tab PO HS 04/26/14 06/17/16 [Cranberry Tablet] [place]-3 Fatty Acids/Fish Oil [Fish 2 cap PO HS 04/26/14 06/17/16 Oil 1,000 mg Softgel] Oxybutynin Chloride [Ditropan] 5 mg PO TID 04/26/14 06/17/16 Ferrous Sulfate [Iron (65 MG 325 mg PO TID 07/04/14 06/17/16 Elemental)] Cholecalciferol [Vitamin D3] 1,000 unit PO DAILY 01/27/15 06/17/16 Cyanocobalamin [Vitamin B-12] 500 mcg PO DAILY 01/27/15 06/17/16 Megestrol [Megace] 40 mg PO BID 05/18/16 06/17/16 NIFEdipine XL [Procardia XL] 30 mg PO DAILY 05/18/16 06/17/16 Previous Rx's Medication Instructions Recorded cloNIDine HCL [Catapres] 0.2 mg PO TID tab 02/04/15 ALPRAZolam [Xanax] 0.25 mg PO DAILY PRN #7 tab 05/22/16 traMADol HCL [Ultram] 50 mg PO BID PRN #14 tablet 05/22/16 Allergies Allergy/AdvReac Type Severity Reaction Status Date / Time hydrocodone AdvReac Hallucinati Verified 06/17/16 22:25 ons Review of Systems ROS Statement: Those systems with pertinent positive or pertinent negative responses have been documented in the HPI. ROS Other: All systems not noted in ROS Statement are negative. Constitutional: Reports: chills Eyes: Denies: eye pain ENT: Denies: ear pain Respiratory: Denies: cough Cardiovascular: Denies: chest pain Endocrine: Denies: fatigue Gastrointestinal: Denies: abdominal pain Genitourinary: Denies: dysuria Musculoskeletal: Denies: back pain Skin: Denies: rash Neurological: Denies: weakness Past Medical History Past Medical History: Cancer, Hyperlipidemia, Hypertension, Osteoarthritis (OA) , Pneumonia Additional Past Medical History / Comment(s): Current decubitus ulcer, vaginal bleeding summer 2015 and transfered to [facility] D&C-bx negative, urinary leakage , BILATERAL BREAST CANCER with surgery and chemo/radiation, severe LYMPHEDEMA BILATERAL LEGS only walks short distances, venostasis-past sores on back of legs that bled periodically, past lower leg cellulitis, chronic anemia since 2013, UTI'S, on gout medicine for increase uric acid level but stated never had flare up of gout. morbid obesity History of Any Multi-Drug Resistant Organisms: None Reported Past Surgical History: Adenoidectomy, Breast Surgery, Tonsillectomy Additional Past Surgical History / Comment(s): partial mastectomy left breast, LUMPECTOMY RIGHT BREAST, lymph nodes removed left axillae. Past Anesthesia/Blood Transfusion Reactions: No Reported Reaction Additional Past Anesthesia/Blood Transfusion Reaction / Comment(s): Pt has received blood in past without reaction. Past Psychological History: No Psychological Hx Reported, Anxiety Additional Psychological History / Comment(s): Patient relates that her upper body has gone from a 4X to a 1X size. No experience. No travels. No animal exposures. Pt resides with her spouse and adult jessica. She uses a cane/ walker to walk short distances. She has a W/C. Smoking Status: Never smoker Past Alcohol Use History: None Reported Past Drug Use History: None Reported - Past Family History Father Family Medical History: Coronary Artery Disease (CAD), Diabetes Mellitus Additional Family Medical History / Comment(s): has a porcine valve Mother Family Medical History: Chest Pain / Angina, Diabetes Mellitus Additional Family Medical History / Comment(s): weak heart General Exam Limitations: no limitations General appearance: alert, in no apparent distress, obese Head exam: Present: atraumatic Eye exam: Present: normal appearance, PERRL ENT exam: Present: normal oropharynx Neck exam: Present: normal inspection Respiratory exam: Present: normal lung sounds bilaterally Cardiovascular Exam: Present: tachycardia GI/Abdominal exam: Present: soft. Absent: distended, tenderness Extremities exam: Present: other (Chronic lymphedema). Absent: calf tenderness Neurological exam: Present: alert Psychiatric exam: Present: normal affect, normal mood Skin exam: Absent: rash Course Vital Signs 06/17/16 06/17/16 06/17/16 22:21 23:10 23:16 Temperature 99.1 F Pulse Rate 146 H 134 H 132 H Respiratory 32 H 28 H Rate Blood Pressure 157/72 157/70 156/68 O2 Sat by Pulse 100 100 100 Oximetry 06/18/16 00:00 Temperature Pulse Rate 127 H Respiratory 18 Rate Blood Pressure 138/62 O2 Sat by Pulse 99 Oximetry EKG Findings - EKG Comments: EKG Findings:: Sinus tachycardia 144. DC 154. QRS 82. QT to 46. QTc 380. Normal axis. Normal QRS. Nonspecific ST-T. Medical Decision Making - Medical Decision Making Patient reevaluated and improved. Heart rate down to 124. Patient does meet Sirs criteria. Possible urinary tract infection. Patient will be treated for sepsis, diagnosed at 1:16 AM. Patient will be provided one unit of blood. Patient reportedly has chronic vaginal bleeding. Patient has seen SENIOR NETWORK SYSTEMS ENGINEER for this and told she is not a candidate for hysterectomy. Patient is requesting a different SENIOR NETWORK SYSTEMS ENGINEER consult. Case discussed with Dr. Fernandez, who will admit for Dr. Lassiter. - Lab Data Result diagrams: 06/17/16 22:55 06/17/16 22:55 Lab Results 06/17/16 06/17/16 06/17/16 Range/Units 22:55 22:55 22:55 WBC 9.0 (3.8-10.6) k/uL RBC 2.83 L (3.80-5.40) m/uL Hgb 7.7 L (11.4-16.0) gm/dL Hct 24.9 L (34.0-46.0) % MCV 87.8 (80.0-100.0) fL MCH 27.3 (25.0-35.0) pg MCHC 31.1 (31.0-37.0) g/dL RDW 16.3 H (11.5-15.5) % Plt Count 331 (150-450) k/uL Neutrophils % 93 % Lymphocytes % 1 % Monocytes % 3 % Eosinophils % 2 % Basophils % 1 % Neutrophils # 8.3 H (1.3-7.7) k/uL Lymphocytes # 0.1 L (1.0-4.8) k/uL Monocytes # 0.3 (0-1.0) k/uL Eosinophils # 0.2 (0-0.7) k/uL Basophils # 0.0 (0-0.2) k/uL Hypochromasia Moderate Anisocytosis Slight PT (9.0-12.0) sec INR (<1.1) APTT (22.0-30.0) sec Sodium 138 (137-145) mmol/L Potassium 4.1 (3.5-5.1) mmol/L Chloride 107 (98-107) mmol/L Carbon Dioxide 20 L (22-30) mmol/L Anion Gap 11 mmol/L BUN 22 H (7-17) mg/dL Creatinine 1.10 H (0.52-1.04) mg/dL Est GFR (MDRD) Af Amer 60 (>60 ml/min/1.73 sqM) Est GFR (MDRD) Non-Af 49 (>60 ml/min/1.73 sqM) Glucose 145 H (74-99) mg/dL Plasma Lactic Acid Salvador (0.7-2.0) mmol/L Calcium 8.4 (8.4-10.2) mg/dL Total Bilirubin 0.6 (0.2-1.3) mg/dL AST 20 (14-36) U/L ALT 24 (9-52) U/L Alkaline Phosphatase 194 H (38-126) U/L Total Creatine Kinase <20 L (30-135) U/L CK-MB (CK-2) 0.5 (0.0-2.4) ng/mL CK-MB (CK-2) Rel Index 0.0 Troponin I <0.012 (0.000-0.034) ng/mL Total Protein 5.0 L (6.3-8.2) g/dL Albumin 2.2 L (3.5-5.0) g/dL Cortisol 24 ug/dL Urine Color Urine Appearance (Clear) Urine pH (5.0-8.0) Ur Specific Dawson (1.001-1.035) Urine Protein (Negative) Urine Glucose (UA) (Negative) Urine Ketones (Negative) Urine Blood (Negative) Urine Nitrate (Negative) Urine Bilirubin (Negative) Urine Urobilinogen (<2.0) mg/dL Ur Leukocyte Esterase (Negative) Urine RBC (0-5) /hpf Urine WBC (0-5) /hpf Ur Squamous Epith Cells (0-4) /hpf Urine Mucus (None) /hpf Influenza Type A RNA (Not Detectd) Influenza Type B (PCR) (Not Detectd) 06/17/16 06/17/16 06/17/16 Range/Units 22:55 22:55 23:06 WBC (3.8-10.6) k/uL RBC (3.80-5.40) m/uL Hgb (11.4-16.0) gm/dL Hct (34.0-46.0) % MCV (80.0-100.0) fL MCH (25.0-35.0) pg MCHC (31.0-37.0) g/dL RDW (11.5-15.5) % Plt Count (150-450) k/uL Neutrophils % % Lymphocytes % % Monocytes % % Eosinophils % % Basophils % % Neutrophils # (1.3-7.7) k/uL Lymphocytes # (1.0-4.8) k/uL Monocytes # (0-1.0) k/uL Eosinophils # (0-0.7) k/uL Basophils # (0-0.2) k/uL Hypochromasia Anisocytosis PT 11.7 (9.0-12.0) sec INR 1.2 (<1.1) APTT 24.7 (22.0-30.0) sec Sodium (137-145) mmol/L Potassium (3.5-5.1) mmol/L Chloride (98-107) mmol/L Carbon Dioxide (22-30) mmol/L Anion Gap mmol/L BUN (7-17) mg/dL Creatinine (0.52-1.04) mg/dL Est GFR (MDRD) Af Amer (>60 ml/min/1.73 sqM) Est GFR (MDRD) Non-Af (>60 ml/min/1.73 sqM) Glucose (74-99) mg/dL Plasma Lactic Acid Salvador 2.0 (0.7-2.0) mmol/L Calcium (8.4-10.2) mg/dL Total Bilirubin (0.2-1.3) mg/dL AST (14-36) U/L ALT (9-52) U/L Alkaline Phosphatase (38-126) U/L Total Creatine Kinase (30-135) U/L CK-MB (CK-2) (0.0-2.4) ng/mL CK-MB (CK-2) Rel Index Troponin I (0.000-0.034) ng/mL Total Protein (6.3-8.2) g/dL Albumin (3.5-5.0) g/dL Cortisol ug/dL Urine Color Urine Appearance (Clear) Urine pH (5.0-8.0) Ur Specific Dawson (1.001-1.035) Urine Protein (Negative) Urine Glucose (UA) (Negative) Urine Ketones (Negative) Urine Blood (Negative) Urine Nitrate (Negative) Urine Bilirubin (Negative) Urine Urobilinogen (<2.0) mg/dL Ur Leukocyte Esterase (Negative) Urine RBC (0-5) /hpf Urine WBC (0-5) /hpf Ur Squamous Epith Cells (0-4) /hpf Urine Mucus (None) /hpf Influenza Type A RNA Not Detected (Not Detectd) Influenza Type B (PCR) Not Detected (Not Detectd) 06/18/16 Range/Units 00:27 WBC (3.8-10.6) k/uL RBC (3.80-5.40) m/uL Hgb (11.4-16.0) gm/dL Hct (34.0-46.0) % MCV (80.0-100.0) fL MCH (25.0-35.0) pg MCHC (31.0-37.0) g/dL RDW (11.5-15.5) % Plt Count (150-450) k/uL Neutrophils % % Lymphocytes % % Monocytes % % Eosinophils % % Basophils % % Neutrophils # (1.3-7.7) k/uL Lymphocytes # (1.0-4.8) k/uL Monocytes # (0-1.0) k/uL Eosinophils # (0-0.7) k/uL Basophils # (0-0.2) k/uL Hypochromasia Anisocytosis PT (9.0-12.0) sec INR (<1.1) APTT (22.0-30.0) sec Sodium (137-145) mmol/L Potassium (3.5-5.1) mmol/L Chloride (98-107) mmol/L Carbon Dioxide (22-30) mmol/L Anion Gap mmol/L BUN (7-17) mg/dL Creatinine (0.52-1.04) mg/dL Est GFR (MDRD) Af Amer (>60 ml/min/1.73 sqM) Est GFR (MDRD) Non-Af (>60 ml/min/1.73 sqM) Glucose (74-99) mg/dL Plasma Lactic Acid Salvador (0.7-2.0) mmol/L Calcium (8.4-10.2) mg/dL Total Bilirubin (0.2-1.3) mg/dL AST (14-36) U/L ALT (9-52) U/L Alkaline Phosphatase (38-126) U/L Total Creatine Kinase (30-135) U/L CK-MB (CK-2) (0.0-2.4) ng/mL CK-MB (CK-2) Rel Index Troponin I (0.000-0.034) ng/mL Total Protein (6.3-8.2) g/dL Albumin (3.5-5.0) g/dL Cortisol ug/dL Urine Color Yellow Urine Appearance Cloudy H (Clear) Urine pH 5.5 (5.0-8.0) Ur Specific Dawson 1.015 (1.001-1.035) Urine Protein 2+ H (Negative) Urine Glucose (UA) Negative (Negative) Urine Ketones Trace H (Negative) Urine Blood Large H (Negative) Urine Nitrate Negative (Negative) Urine Bilirubin Negative (Negative) Urine Urobilinogen 2.0 (<2.0) mg/dL Ur Leukocyte Esterase Moderate H (Negative) Urine RBC >182 H (0-5) /hpf Urine WBC 24 H (0-5) /hpf Ur Squamous Epith Cells 2 (0-4) /hpf Urine Mucus Occasional H (None) /hpf Influenza Type A RNA (Not Detectd) Influenza Type B (PCR) (Not Detectd) - Radiology Data Radiology results: image reviewed (Chest x-ray shows no acute process) Critical Care Time Critical Care Time: Yes Total Critical Care Time: 33 Disposition Clinical Impression: Anemia, Vaginal bleeding, UTI (urinary tract infection), Sepsis Disposition: ADMITTED IP TO THIS HOSP
[2016-06-17] MEDS: SODIUM CHLORIDE 0.9% 500 ML IV SCH (23:02)
[2016-06-17 23:08] LABS: Anisocytosis Slight; Basophils % (A) 1 %; CH 26.8; CHCM 30.6; Eosinophils # (A) 0.2 k/uL (0-0.7); Eosinophils % (A) 2 %; HCT 24.9 % (34.0-46.0); HGB 7.7 gm/dL (11.4-16.0); Hypochromasia Moderate; Luc # (Auto) 0.03; Luc % (Auto) 0; Lymphocytes # (A) 0.1 k/uL (1.0-4.8); Lymphocytes % (A) 1 %; MCH 27.3 pg (25.0-35.0); MCHC 31.1 g/dL (31.0-37.0); MCV 87.8 fL (80.0-100.0); Mean Platelet Volume 7.2; Monocytes # (A) 0.3 k/uL (0-1.0); Monocytes % (A) 3 %; Neutrophils # (A) 8.3 k/uL (1.3-7.7); Neutrophils % (A) 93 %; RBC 2.83 m/uL (3.80-5.40); RDW 16.3 % (11.5-15.5); WBC (Perox) 8.83
[2016-06-17 23:20] LABS: INR 1.2 (<1.1); Partial Thromboplastin Time 24.7 sec (22.0-30.0); Prothrombin Time 11.7 sec (9.0-12.0)
[2016-06-17 23:25] LABS: Calcium 8.4 mg/dL (8.4-10.2); Potassium 4.1 mmol/L (3.5-5.1); Total Bilirubin 0.6 mg/dL (0.2-1.3)
[2016-06-17 23:41] LABS: Creatine Kinase <20 U/L (30-135)
--- NOTE | 2016-06-17 23:46 | XR ---
EXAM: XR Chest, 1 View. CLINICAL HISTORY: Reason: Fever TECHNIQUE: Frontal view of the chest. COMPARISON: 05/08/16. FINDINGS: Lungs: Low lung volumes. No consolidation. Pleural space: Unremarkable. No pneumothorax. Heart: Unremarkable. No cardiomegaly. Mediastinum: Unremarkable. Bones/joints: Unremarkable. IMPRESSION: No evidence of acute cardiopulmonary disease.
[2016-06-17 23:55] LABS: Creatine Kinase MB 0.5 ng/mL (0.0-2.4); Troponin I <0.012 ng/mL (0.000-0.034)
[2016-06-18 00:45] LABS: Appearance,Urine Cloudy (Clear); Bilirubin,Urine Negative (Negative); Glucose,Urine (UA) Negative (Negative); Ketones,Urine Trace (Negative); Leukocyte Esterase,Urine Moderate (Negative); Mucus,Urine Occasional /hpf; Nitrite,Urine Negative (Negative); PH, Urine 5.5 (5.0-8.0); Particle Count 14054; Protein,Urine 2+ (Negative); RBC,Urine >182 /hpf (0-5); Specific Gravity,Urine 1.015 (1.001-1.035); Squamous Epithelial Cell,Urine 2 /hpf (0-4); UA Billing (MACRO vs. MICRO) MICRO; WBC,Urine 24 /hpf (0-5)
[2016-06-18] MEDS ORDERED: IBUPROFEN 400 MG TAB PO PRN (01:17)
[2016-06-18] MEDS ORDERED: NALOXONE 0.4 MG/ML 1 ML VIAL IV PRN (01:17)
[2016-06-18] MEDS ORDERED: ACETAMINOPHEN TAB 325 MG TAB PO PRN (01:17)
[2016-06-18] MEDS ORDERED: LEVOFLOXACIN 750MG-D5W PMX 750 MG in DEXTROSE/WATER 1 150ML.BAG IVPB STA (01:19)
[2016-06-18] MEDS: SODIUM CHLORIDE 0.9% 500 ML IV SCH (01:36)
[2016-06-18] MEDS: PANTOPRAZOLE 40 MG/10 ML VIAL IV SCH ×2 (01:59→09:53)
[2016-06-18] MEDS: SODIUM CHLORIDE 0.9% 1,000 ML IV SCH ×3 (02:44→16:23)
[2016-06-18 06:08] LABS: Anisocytosis Slight; Basophils # (A) 0.1 k/uL (0-0.2); Basophils % (A) 0 %; CH 27.1; CHCM 31.4; Eosinophils # (A) 0.2 k/uL (0-0.7); Eosinophils % (A) 1 %; HCT 24.9 % (34.0-46.0); HDW 3.22; HGB 7.8 gm/dL (11.4-16.0); Hypochromasia Slight; Luc # (Auto) 0.11; Luc % (Auto) 1; Lymphocytes # (A) 0.2 k/uL (1.0-4.8); Lymphocytes % (A) 2 %; MCH 27.3 pg (25.0-35.0); MCHC 31.5 g/dL (31.0-37.0); MCV 86.5 fL (80.0-100.0); Mean Platelet Volume 7.1; Monocytes # (A) 0.5 k/uL (0-1.0); Monocytes % (A) 4 %; Neutrophils # (A) 13.2 k/uL (1.3-7.7); Neutrophils % (A) 93 %; RBC 2.87 m/uL (3.80-5.40); RDW 16.3 % (11.5-15.5); WBC 14.3 k/uL (3.8-10.6); WBC (Perox) 13.75
[2016-06-18 06:20] LABS: Creatine Kinase <20 U/L (30-135)
[2016-06-18 06:31] LABS: Creatine Kinase MB 0.4 ng/mL (0.0-2.4); Troponin I 0.017 ng/mL (0.000-0.034)
[2016-06-18 08:36] VITALS: BMI 58.6
[2016-06-18 12:07] LABS: Calcium 8.1 mg/dL (8.4-10.2); Potassium 4.4 mmol/L (3.5-5.1)
[2016-06-18 12:10] LABS: Creatine Kinase 33 U/L (30-135)
[2016-06-18 12:23] LABS: Creatine Kinase MB 0.6 ng/mL (0.0-2.4); Troponin I <0.012 ng/mL (0.000-0.034)
[2016-06-18] MEDS ORDERED: traMADol 50 MG TAB PO PRN (14:05)
--- NOTE | 2016-06-18 15:22 | HP ---
DATE OF ADMISSION: Patient is a 70-year-old female came in with complaints of vaginal bleeding and patient has this bleeding going on for a year, she says. Her hemoglobin is 7.8. Patient denied any dysuria. Patient denied any suprapubic pain. Patient denied any nausea, vomiting. Patient denied any abdominal pain. Patient basically denied any UTI-like symptoms, although patient was considered to have UTI, because of the abnormal-looking urine and was subsequently admitted to Medicine Service. Her baseline creatinine is around 0.9 and patient's creatinine was high and I will obtain a pelvic ultrasound for her vaginal bleeding and I do not believe patient has UTI. Patient has symptomatic bacteria. ADJUNCT FACULTY INSTRUCTOR was consulted. REVIEW OF SYSTEMS: CONSTITUTIONAL: No fever, no malaise, no fatigue. HEENT: No recent visual problems or hearing problems. Denied any sore throat. CARDIOVASCULAR: No chest pain, orthopnea, PND, no palpitations, no syncope. PULMONARY: No shortness of breath, no cough, no hemoptysis. GASTROINTESTINAL: No diarrhea, no nausea, no vomiting, no abdominal pain. Normoactive bowel sounds. NEUROLOGICAL: No headaches, no weakness, no numbness. HEMATOLOGICAL: Denies any bleeding or petechiae. GENITOURINARY: As described in HPI. MUSCULOSKELETAL/RHEUMATOLOGICAL: Denies any joint pain, swelling, or any muscle pain. ENDOCRINE: Denies any polyuria or polydipsia. The rest of the 14 point review of systems is negative. Home medications include ( ) ferrous sulfate, cholecalciferol, cyanocobalamin, Nifedipine and clonidine, alprazolam and Tramadol. PAST MEDICAL HISTORY: Significant for vaginal bleeding for long time, hyperlipidemia, hypertension, osteoarthritis, pneumonia, morbid obesity, bilateral breast cancer in the past with lymphedema, adenoidectomy, breast surgery, tonsillectomy and lumpectomy in the past. FAMILY HISTORY: Father had coronary artery disease, diabetes mellitus, and mother had chest pain, angina, diabetes mellitus. Home medications: I am not sure why patient is on Megace. Patient is morbidly obese, Megace is not appropriate. PHYSICAL EXAMINATION: Temperature 96.9, pulse of 92, respiratory rate of 16. Blood pressure is 140/65, saturating at 99% on room air. GENERAL EXAMINATION: Morbidly obese, alert and oriented x3. HEENT: Pupils are round and equally reacting to light. EOMI. No scleral icterus. No conjunctival pallor. Normocephalic, atraumatic. No pharyngeal erythema. No thyromegaly. CARDIOVASCULAR: S1 and S2 present. No murmurs, rubs, or gallops. PULMONARY: Chest is clear to auscultation, no wheezing or crackles. ABDOMEN: Soft, nontender, nondistended, normoactive bowel sounds. No palpable organomegaly. MUSCULOSKELETAL: No joint swelling or deformity. EXTREMITIES: No cyanosis, clubbing, or pedal edema. NEUROLOGICAL: Gross neurological examination did not reveal any focal deficits. SKIN: No rashes. LABORATORY DATA: CBC, BMP are abnormal for WBC count of 14,300, bicarbonate of 17. Anion gap of 11, elevated bicarb and low bicarb may be secondary to IV fluids and chloride of 109 and the TSH is 0.650, probably sick euthyroid syndrome. Patient has increased RBC the urine, probably from the vaginal bleed. The rest of the laboratory data is essentially within normal limits. ASSESSMENT AND PLAN: 1. Vaginal bleed, I will get a pelvic ultrasound and Dr. Zavaleta will evaluate the patient regarding her vaginal bleed, etiology is unknown and patient apparently appears to have this vaginal bleed for some time. Will monitor CBC. 2. Acute renal failure, probably prerenal azotemia. Patient IV fluids will be changed to lactated Ringer's because of hyperchloremia. 3. Asymptomatic bacteria which does not warrant any antibiotics, which will be discontinued at this time. Patient appears to have multiple admissions in the past for the same problems. 4. Morbid obesity, counseling was provided regarding that and Megace will be discontinued. 5. Essential hypertension. I will hold off on clonidine at this time. I do not believe it is necessary at that this point of time. Will watch for any rebound hypertension or rebound tachycardia.
[2016-06-18] MEDS: FERROUS SULFATE 325 MG TAB PO SCH (18:13)
[2016-06-18 20:30] LABS: Glucose,Whole Blood 103 mg/dL (75-99)
[2016-06-18 20:32] LABS: Glucose,Whole Blood 107 mg/dL (75-99)
[2016-06-18 20:41] LABS: ABG PH 7.47 (7.35-7.45)
[2016-06-18 20:42] LABS: ABG Base Excess -9.9 mmol/L; ABG HCO3 13 mmol/L (21-25); ABG PCO2 18 mmHg (35-45); ABG PO2 210 mmHg (83-108); ABG TCO2 14 mmol/L (19-24)
[2016-06-18 21:08] LABS: Basophils % (A) 0 %; CH 26.6; CHCM 30.1; Eosinophils # (A) 0.2 k/uL (0-0.7); Eosinophils % (A) 2 %; HCT 27.8 % (34.0-46.0); HDW 3.49; HGB 8.5 gm/dL (11.4-16.0); Hypochromasia Marked; Luc # (Auto) 0.04; Luc % (Auto) 0; Lymphocytes # (A) 0.2 k/uL (1.0-4.8); Lymphocytes % (A) 2 %; MCH 27.1 pg (25.0-35.0); MCHC 30.6 g/dL (31.0-37.0); MCV 88.7 fL (80.0-100.0); Mean Platelet Volume 7.3; Monocytes # (A) 0.2 k/uL (0-1.0); Monocytes % (A) 2 %; Neutrophils # (A) 9.4 k/uL (1.3-7.7); Neutrophils % (A) 93 %; Poikilocytosis Slight; RBC 3.14 m/uL (3.80-5.40); WBC 10.1 k/uL (3.8-10.6); WBC (Perox) 11.11
--- NOTE | 2016-06-18 21:16 | US ---
EXAMINATION TYPE: US pelvic complete DATE OF EXAM: 06/18/2016 4:51 PM COMPARISON: 05/10/2015 CLINICAL HISTORY: vaginal bleeding. bleeding for a duration of one year as reported by patient; D&C d one in April 2015 and in October 2015 TECHNIQUE: Transabdominal (TA) Date of LMP: unknown EXAM MEASUREMENTS: Uterus: 13.5 x 7.3 x 9.9 cm Endometrial Stripe: obliterated Right Ovary: not visualized Left Ovary: not visualized NOTES: Extremely limited exam due to patient immobility, patient body habitus, and tenderness during examination. 1. Uterus: posterior hypoechoic area measuring 3.5 x 2.2 cm, likely fibroid. Another area of calci fications seen inferior and posterior area of pelvis, likely calcified fibroid measuring 5.1 x 5.4 cm . 2. Endometrium: obliterated 3. Right Ovary: not visualized 4. Left Ovary: not visualized 5. Bilateral Adnexa: no gross abnormality identified IMPRESSION: NO ACUTE PROCESS.
[2016-06-18 21:31] LABS: Calcium 8.7 mg/dL (8.4-10.2); Magnesium 1.8 mg/dL (1.6-2.3); Potassium 4.2 mmol/L (3.5-5.1); Total Bilirubin 0.7 mg/dL (0.2-1.3); Total Protein 6.1 g/dL (6.3-8.2)
[2016-06-18] MEDS ORDERED: SODIUM CHLORIDE 0.9% 5,000 ML IV ONE (22:05)
[2016-06-19] MEDS ORDERED: NIFEdipine XL 30 MG TAB.ER.24 PO STA (00:07)
[2016-06-19] MEDS ORDERED: VANCOMYCIN 1,000 MG in SODIUM CHLORIDE 0.9% 250 ML IVPB STA (00:18)
[2016-06-19] MEDS ORDERED: IV VANCOMYCIN PER PHARMACY 1 EACH MISC MISCELLANE PRN (00:18)
[2016-06-19] MEDS: SODIUM CHLORIDE 0.9% 1,000 ML IV SCH ×3 (00:27→20:56)
[2016-06-19] MEDS: FERROUS SULFATE 325 MG TAB PO SCH ×4 (00:27→20:55)
[2016-06-19] MEDS ORDERED: VANCOMYCIN 2,250 MG in SODIUM CHLORIDE 0.9% 500 ML IVPB SCH (01:00)
[2016-06-19 04:45] LABS: Basophils # (A) 0.1 k/uL (0-0.2); Basophils % (A) 0 %; CH 26.1; CHCM 28.2; Eosinophils # (A) 0.1 k/uL (0-0.7); Eosinophils % (A) 1 %; HCT 23.9 % (34.0-46.0); HDW 3.22; HGB 7.2 gm/dL (11.4-16.0); Hypochromasia Marked; Luc # (Auto) 0.17; Luc % (Auto) 1; Lymphocytes # (A) 0.3 k/uL (1.0-4.8); Lymphocytes % (A) 2 %; MCH 27.8 pg (25.0-35.0); MCV 92.6 fL (80.0-100.0); Mean Platelet Volume 7.4; Monocytes # (A) 0.4 k/uL (0-1.0); Monocytes % (A) 3 %; Neutrophils % (A) 93 %; RBC 2.58 m/uL (3.80-5.40); RDW 15.9 % (11.5-15.5); WBC 12.9 k/uL (3.8-10.6)
[2016-06-19 04:58] LABS: Calcium 7.8 mg/dL (8.4-10.2); Magnesium 1.8 mg/dL (1.6-2.3); Phosphorous 3.3 mg/dL (2.5-4.5)
[2016-06-19] MEDS ORDERED: Magnesium Replacement Protocol 1 EACH MISC MISCELLANE PRN (05:41)
[2016-06-19 07:32] LABS: Amorphous Sediment,Urine Rare /hpf; Appearance,Urine Cloudy (Clear); Bilirubin,Urine Negative (Negative); Glucose,Urine (UA) Negative (Negative); Ketones,Urine 1+ (Negative); Leukocyte Esterase,Urine Moderate (Negative); Mucus,Urine Rare /hpf; Nitrite,Urine Negative (Negative); Particle Count 4138; Protein,Urine 1+ (Negative); RBC,Urine 63 /hpf (0-5); Specific Gravity,Urine 1.009 (1.001-1.035); Squamous Epithelial Cell,Urine 1 /hpf (0-4); UA Billing (MACRO vs. MICRO) MICRO; Uric Acid Crystals,Urine Moderate /hpf; Urobilinogen,Urine <2.0 mg/dL (<2.0); WBC,Urine 21 /hpf (0-5)
--- NOTE | 2016-06-19 08:27 | P.OBCN ---
History of Present Illness Consult date: 06/19/16 Reason for consult: other (Postmenopausal bleeding) Chief complaint: Respiratory illness, chronic postmenopausal bleeding History of present illness: The patient is a 70-year-old woman familiar to our service who presented to the emergency room with apparent respiratory concerns and, at the time also reported continued almost daily vaginal bleeding. On questioning, she does report that is occasionally heavy. She was seen for this through our service on several occasions in the past. Her situation is complicated by tremendous obesity and tremendous lower extremity bullous edema making mobility and access to the vagina extraordinarily difficult. She was ultimately taken to the operating room by my partner for D&C. The specimen, however, report returned insufficient for diagnosis of the endometrium. She was at that time placed on Provera prophylactically as she is at risk for endometrial cancer. She then returned to the hospital last summer at which time we, from benign gynecology, had nothing to offer her and arrange for her transfer to [facility] where she was to be evaluated by [facility] oncology. I spoke with the [employer] oncologist yesterday who reported to me that they were able to sample the endometrium and the findings were benign. In either case, they chose to place her on Megace to treat any potential underlying endometrial malignancy that may not have been sampled and also to potentially treat any ongoing vaginal bleeding. This has failed to fozia the bleeding as noted above. [facility] oncology has deemed her not a candidate for definitive surgery with hysterectomy given her size and cons founding medical conditions. Obstetrical history: Unremarkable Gynecologic history: Unremarkable and essentially confined to history of present illness. Review of Systems Review of systems is confined to history of present illness. Past Medical History Past Medical History: Cancer, Hyperlipidemia, Hypertension, Osteoarthritis (OA) , Pneumonia Additional Past Medical History / Comment(s): vaginal bleeding summer 2015, D& Cx2, urinary leakage, BILATERAL BREAST CANCER with surgery and chemo/radiation, severe LYMPHEDEMA BILATERAL LEGS, venostasis-past sores on back of legs, past lower leg cellulitis, chronic anemia since 2013, UTI'S, on gout medicine for increase uric acid level but stated never had flare up of gout. morbid obesity History of Any Multi-Drug Resistant Organisms: None Reported Past Surgical History: Adenoidectomy, Breast Surgery, Tonsillectomy Additional Past Surgical History / Comment(s): partial mastectomy left breast, LUMPECTOMY RIGHT BREAST, lymph nodes removed left axillae. Past Anesthesia/Blood Transfusion Reactions: No Reported Reaction Additional Past Anesthesia/Blood Transfusion Reaction / Comm: Pt has received blood in past without reaction. Past Psychological History: No Psychological Hx Reported, Anxiety Additional Psychological History / Comment(s): Patient relates that her upper body has gone from a 4X to a 1X size. No experience. No travels. No animal exposures. Pt resides with her spouse and adult jessica. She uses a cane/ walker to walk short distances. She has a W/C. Smoking Status: Never smoker Past Alcohol Use History: None Reported Past Drug Use History: None Reported - Past Family History Father Family Medical History: Coronary Artery Disease (CAD), Diabetes Mellitus Additional Family Medical History / Comment(s): has a porcine valve Mother Family Medical History: Chest Pain / Angina, Diabetes Mellitus Additional Family Medical History / Comment(s): weak heart Medications and Allergies Home Medications Medication Instructions Recorded Confirmed Type Cranberry Conc/C/Bacill Coag 1 tab PO HS 04/26/14 06/17/16 History [Cranberry Tablet] Downey-3 Fatty Acids/Fish Oil [Fish 2 cap PO HS 04/26/14 06/17/16 History Oil 1,000 mg Softgel] Oxybutynin Chloride [Ditropan] 5 mg PO TID 04/26/14 06/17/16 History Ferrous Sulfate [Iron (65 MG 325 mg PO TID 07/04/14 06/17/16 History Elemental)] Cholecalciferol [Vitamin D3] 1,000 unit PO DAILY 01/27/15 06/17/16 History Cyanocobalamin [Vitamin B-12] 500 mcg PO DAILY 01/27/15 06/17/16 History Megestrol [Megace] 40 mg PO BID 05/18/16 06/17/16 History NIFEdipine XL [Procardia XL] 30 mg PO DAILY 05/18/16 06/17/16 History Allergies Allergy/AdvReac Type Severity Reaction Status Date / Time hydrocodone AdvReac Hallucinati Verified 06/17/16 22:25 ons Exam - Vital Signs Vital signs: Vital Signs Temp Pulse Pulse Pulse Resp BP BP 06/19/16 07:00 108 H 18 130/57 06/19/16 06:00 108 H 19 165/64 06/19/16 05:00 103 H 21 170/63 06/19/16 04:00 99.2 F 113 H 19 167/70 06/19/16 03:00 116 H 29 H 143/60 06/19/16 02:00 109 H 21 149/54 06/19/16 01:00 116 H 23 149/58 06/19/16 00:00 99.4 F 119 H 24 173/68 06/18/16 23:00 126 H 22 167/71 06/18/16 22:00 129 H 26 H 164/62 06/18/16 20:40 145 H 34 H 147/90 06/18/16 20:15 06/18/16 20:05 100.1 F H 155 H 32 H 83/44 06/18/16 18:54 99 F 100 22 148/65 06/18/16 16:30 96.7 F L 96 18 142/65 06/18/16 12:45 96.9 F L 89 16 146/65 06/18/16 09:06 96.1 F L 92 16 140/65 Pulse Ox 06/19/16 07:00 99 06/19/16 06:00 99 06/19/16 05:00 99 06/19/16 04:00 98 06/19/16 03:00 99 06/19/16 02:00 99 06/19/16 01:00 98 06/19/16 00:00 98 06/18/16 23:00 100 06/18/16 22:00 100 06/18/16 20:40 100 06/18/16 20:15 90 L 06/18/16 20:05 76 L 06/18/16 18:54 99 06/18/16 16:30 98 06/18/16 12:45 99 06/18/16 09:06 99 Intake and Output 06/18/16 06/19/16 06/19/16 22:59 06:59 14:59 Intake Total 200 3701 100 Output Total 654 901 40 Balance -454 2800 60 Intake: Intake, IV Titration 200 3701 100 Amount Sodium Chloride 0.9% 1, 200 200 100 000 ml @ 100 mls/hr IV . Q10H [facility] Rx#:[id number] Sodium Chloride 0.9% 5, 3000 000 ml @ 999 mls/hr IV . Q5H1M ONE Rx#:[id number] Vancomycin 2,250 mg In 501 Sodium Chloride 0.9% 500 ml @ 167 mls/hr IVPB Q24H [facility] Rx#:[id number] Output: Urine 654 901 40 Other: Voiding Method Indwelling Catheter Indwelling Catheter # Bowel Movements 1 Weight 156 kg No examination was performed as her vital organs are managed well in the ICU. Pelvic examination is deferred as accessing the pelvis is not only significantly uncomfortable for the patient but examination is suboptimal as the uterus cannot be reached or palpated properly secondary to her habitus. Results Result Diagrams: 06/19/16 04:27 06/19/16 04:27 Abnormal Lab Results - Last 24 Hours (Table) 06/18/16 06/18/16 06/18/16 Range/Units 01:48 05:32 20:09 WBC (3.8-10.6) k/uL RBC (3.80-5.40) m/uL Hgb (11.4-16.0) gm/dL Hct (34.0-46.0) % MCHC (31.0-37.0) g/dL RDW (11.5-15.5) % Neutrophils # (1.3-7.7) k/uL Lymphocytes # (1.0-4.8) k/uL ABG pH (7.35-7.45) ABG pCO2 (35-45) mmHg ABG pO2 (83-108) mmHg ABG HCO3 (21-25) mmol/L ABG Total CO2 (19-24) mmol/L ABG O2 Saturation (94-97) % Chloride 109 H (98-107) mmol/L Carbon Dioxide 17 L (22-30) mmol/L BUN 22 H (7-17) mg/dL Creatinine 1.24 H (0.52-1.04) mg/dL Glucose 146 H (74-99) mg/dL POC Glucose (mg/dL) 103 H (75-99) mg/dL Plasma Lactic Acid Salvador (0.7-2.0) mmol/L Calcium 8.1 L (8.4-10.2) mg/dL Alkaline Phosphatase (38-126) U/L Total Protein (6.3-8.2) g/dL Albumin (3.5-5.0) g/dL TSH 6.050 H (0.465-4.680) mIU/L Urine Appearance (Clear) Urine Protein (Negative) Urine Ketones (Negative) Urine Blood (Negative) Ur Leukocyte Esterase (Negative) Urine RBC (0-5) /hpf Urine WBC (0-5) /hpf Uric Acid Crystals (None) /hpf Amorphous Sediment (None) /hpf Urine Mucus (None) /hpf Crossmatch See Detail 06/18/16 06/18/16 06/18/16 Range/Units 20:22 20:33 20:42 WBC (3.8-10.6) k/uL RBC 3.14 L (3.80-5.40) m/uL Hgb 8.5 L (11.4-16.0) gm/dL Hct 27.8 L (34.0-46.0) % MCHC 30.6 L (31.0-37.0) g/dL RDW 16.0 H (11.5-15.5) % Neutrophils # 9.4 H (1.3-7.7) k/uL Lymphocytes # 0.2 L (1.0-4.8) k/uL ABG pH 7.47 H (7.35-7.45) ABG pCO2 18 L* (35-45) mmHg ABG pO2 210 H (83-108) mmHg ABG HCO3 13 L (21-25) mmol/L ABG Total CO2 14 L (19-24) mmol/L ABG O2 Saturation 99.0 H (94-97) % Chloride (98-107) mmol/L Carbon Dioxide (22-30) mmol/L BUN (7-17) mg/dL Creatinine (0.52-1.04) mg/dL Glucose (74-99) mg/dL POC Glucose (mg/dL) 107 H (75-99) mg/dL Plasma Lactic Acid Salvador (0.7-2.0) mmol/L Calcium (8.4-10.2) mg/dL Alkaline Phosphatase (38-126) U/L Total Protein (6.3-8.2) g/dL Albumin (3.5-5.0) g/dL TSH (0.465-4.680) mIU/L Urine Appearance (Clear) Urine Protein (Negative) Urine Ketones (Negative) Urine Blood (Negative) Ur Leukocyte Esterase (Negative) Urine RBC (0-5) /hpf Urine WBC (0-5) /hpf Uric Acid Crystals (None) /hpf Amorphous Sediment (None) /hpf Urine Mucus (None) /hpf Crossmatch 06/18/16 06/18/16 06/19/16 Range/Units 20:42 20:42 04:27 WBC (3.8-10.6) k/uL RBC (3.80-5.40) m/uL Hgb (11.4-16.0) gm/dL Hct (34.0-46.0) % MCHC (31.0-37.0) g/dL RDW (11.5-15.5) % Neutrophils # (1.3-7.7) k/uL Lymphocytes # (1.0-4.8) k/uL ABG pH (7.35-7.45) ABG pCO2 (35-45) mmHg ABG pO2 (83-108) mmHg ABG HCO3 (21-25) mmol/L ABG Total CO2 (19-24) mmol/L ABG O2 Saturation (94-97) % Chloride 113 H (98-107) mmol/L Carbon Dioxide 18 L 15 L (22-30) mmol/L BUN 22 H 19 H (7-17) mg/dL Creatinine 1.24 H 1.10 H (0.52-1.04) mg/dL Glucose 112 H 125 H (74-99) mg/dL POC Glucose (mg/dL) (75-99) mg/dL Plasma Lactic Acid Salvador 2.4 H* (0.7-2.0) mmol/L Calcium 7.8 L (8.4-10.2) mg/dL Alkaline Phosphatase 166 H (38-126) U/L Total Protein 6.1 L (6.3-8.2) g/dL Albumin 2.6 L (3.5-5.0) g/dL TSH (0.465-4.680) mIU/L Urine Appearance (Clear) Urine Protein (Negative) Urine Ketones (Negative) Urine Blood (Negative) Ur Leukocyte Esterase (Negative) Urine RBC (0-5) /hpf Urine WBC (0-5) /hpf Uric Acid Crystals (None) /hpf Amorphous Sediment (None) /hpf Urine Mucus (None) /hpf Crossmatch 06/19/16 06/19/16 Range/Units 04:27 07:09 WBC 12.9 H (3.8-10.6) k/uL RBC 2.58 L (3.80-5.40) m/uL Hgb 7.2 L (11.4-16.0) gm/dL Hct 23.9 L (34.0-46.0) % MCHC 30.0 L (31.0-37.0) g/dL RDW 15.9 H (11.5-15.5) % Neutrophils # 12.0 H (1.3-7.7) k/uL Lymphocytes # 0.3 L (1.0-4.8) k/uL ABG pH (7.35-7.45) ABG pCO2 (35-45) mmHg ABG pO2 (83-108) mmHg ABG HCO3 (21-25) mmol/L ABG Total CO2 (19-24) mmol/L ABG O2 Saturation (94-97) % Chloride (98-107) mmol/L Carbon Dioxide (22-30) mmol/L BUN (7-17) mg/dL Creatinine (0.52-1.04) mg/dL Glucose (74-99) mg/dL POC Glucose (mg/dL) (75-99) mg/dL Plasma Lactic Acid Salvador (0.7-2.0) mmol/L Calcium (8.4-10.2) mg/dL Alkaline Phosphatase (38-126) U/L Total Protein (6.3-8.2) g/dL Albumin (3.5-5.0) g/dL TSH (0.465-4.680) mIU/L Urine Appearance Cloudy H (Clear) Urine Protein 1+ H (Negative) Urine Ketones 1+ H (Negative) Urine Blood Moderate H (Negative) Ur Leukocyte Esterase Moderate H (Negative) Urine RBC 63 H (0-5) /hpf Urine WBC 21 H (0-5) /hpf Uric Acid Crystals Moderate H (None) /hpf Amorphous Sediment Rare H (None) /hpf Urine Mucus Rare H (None) /hpf Crossmatch Assessment and Plan (1) Vaginal bleeding Status: Chronic Plan: As noted above, the patient is well known to our service. She has had endometrial sampling performed last October at [facility] which reportedly demonstrated benign findings. [facility] oncology who was managing her case at that time has deemed her a noncandidate for definitive surgery to include hysterectomy because of her comorbid conditions. She certainly is a nonsurgical candidate from a benign gynecologic standpoint. I spoke with the [employer] oncology at some length yesterday regarding her case historically and currently and he has recommended that she be continued on Megace as it will potentially counteract both the ongoing vaginal bleeding if it is indeed benign and would also be the only treatment option available should she have an underlying endometrial malignancy. I would suggest that her ongoing anemia. Otherwise treated as necessary with transfusion and potential iron supplementation but have no further options are recommendations for ongoing gynecologic treatment for her bleeding. If you believe that Megace is very aggressive, she certainly could be decreased to Provera 20 mg daily as an alternative. I appreciate the consult but, unfortunately, have nothing further to be able to add to her ongoing care. I did discuss all of these issues and concerns with both the patient and the nurse at bedside in the intensive care unit.
--- NOTE | 2016-06-19 08:47 | XR ---
EXAMINATION TYPE: XR chest 1V DATE OF EXAM: 06/19/2016 6:41 AM COMPARISON: Prior chest x-ray 17 June 2016 HISTORY: Shortness of breath TECHNIQUE: Single frontal view of the chest is obtained. FINDINGS: Heart size is stable and enlarged. Exam is expiratory, patient is rotated. There are overl brenton cardiac leads. No evident pneumothorax or pleural effusion. Pulmonary vascularity and niraj are s table. No evident pneumonia. IMPRESSION: Stable cardiomegaly, expiratory rotated exam
[2016-06-19] MEDS ORDERED: LEVOFLOXACIN 750MG-D5W PMX 750 MG in DEXTROSE/WATER 1 150ML.BAG IVPB SCH (09:00)
[2016-06-19] MEDS ORDERED: NIFEdipine XL 30 MG TAB.ER.24 PO SCH (09:00)
[2016-06-19] MEDS ORDERED: ALPRAZolam 0.25 MG TAB PO PRN (09:56)
[2016-06-19] MEDS: MAGNESIUM SULFATE-D5W PMX 1 GM in DEXTROSE/WATER 1 100ML.BAG IVPB SCH ×2 (10:29→11:35)
[2016-06-19] MEDS: PANTOPRAZOLE 40 MG/10 ML VIAL IV SCH (10:30)
[2016-06-19] MEDS: CHOLECALCIFEROL 1,000 UNIT TAB PO SCH (12:06)
[2016-06-19] MEDS: CYANOCOBALAMIN 500 MCG TAB PO SCH (12:06)
--- NOTE | 2016-06-19 13:16 | CDI ---
In responding to this query, please exercise your independent professional judgment. The [facility] Coding Staff and Clinical Documentation Specialists appreciate your assistance in clarifying documentation, maintaining compliance with coding guidelines, accurately documenting patients condition and capturing severity of illness. The fact that a question is asked does not imply that any particular answer is desired or expected. Communication forms are a method of clarifying documentation and are not made part of the Legal Health Record. Thank you in advance for your clarification. Last Revision, February 2015 Angel Klein [address] [place] [address] Documentation Clarification Form Date: 06/19/2016 1:10:00 PM From: Alicia Armstrong CCS, CCDS Admit Date: 06/18/2016 1:17:00 AM Patient Name: Ivania Anderson Visit Number: [id number] Discharge Date: Dr. Holli Joel: A diagnosis of anemia lacks specificity to accurately reflect your patients severity of condition and clarification is needed. Patient history/risk factors: Chronic & ongoing postmenopausal bleeding with no definitive diagnosis. Clinical Indicators: Hemoglobin: 7.7 - 7.2 Hematocrit: 24.9 - 23.9 Treatment: Transfused 1 unit PRBCs, H&H monitoring, Ferrous Sulfate In order to capture the severity of condition, please clarify the type of anemia and etiology if known: Acute blood loss anemia Acute on chronic blood loss anemia Chronic blood loss anemia Iron deficiency anemia Hemolytic anemia Drug induced anemia Anemia due to malignancy Nutritional anemia Anemia of chronic kidney disease Unable to determine Other, please specify Please document in your progress notes and discharge summary in order to capture severity of illness and risk of mortality. Include clinical findings that support your diagnosis. FYI: Press F11 to launch patient chart. Place X here if this finding has no clinical significance, is not applicable or if you are not able to provide any additional documentation. Thank You. RAMIN
[2016-06-19] MEDS ORDERED: cefTRIAXone 2,000 MG in SODIUM CHLORIDE 0.9% 100 ML IVPB SCH (14:30)
--- NOTE | 2016-06-19 15:06 | P.CNPUL ---
History of Present Illness Consult date: 06/19/16 Requesting physician: Holli Joel Reason for consult: other (Possible sepsis, patient was transferred to the ICU) Chief complaint: Chronic postmenopausal bleeding History of present illness: This is a 70-year-old female with history of multiple medical problems including morbid obesity, significant and tremendous lower extremity bullous edema/lymphedema medical debility, patient has been followed up for quite some time now by the cabin supervisor for her chronic daily postmenopausal vaginal bleeding. Patient was always felt to be a high risk for any surgical intervention including hysterectomy. Hence the patient was treated very conservatively. At any rate the patient was admitted this time mostly with symptoms of worsening vaginal bleeding and a hemoglobin of 7.8. Upon admission she was noted to have possibly a urinary tract infection although she had no symptoms of UTI. Patient is also known to have history of chronic anxiety. And chronic shortness of breath related to her morbid obesity and deconditioning. While on the medical floor, patient developed an episode of shortness of breath and anxiety. Hence arrangements were made to transfer the patient to the ICU. I was notified about the patient upon transfer to the ICU, ABG showed a pO2 of 210 pCO2 of 18 and pH of 7.47. Patient was given Lasix, she was also given Xanax and Ativan, and her lactic acid was noted to be 2.4. Hence we felt that she may be septic, and she was given fluid boluses, lactic acid went down to 0.9 early this morning. When I evaluated the patient in the ICU, patient was noted to be very comfortable in no distress, slightly anxious, feels a bit frustrated that no one can handle her vaginal bleeding. Her urinalysis is showing some moderate amount of blood and a bit of pyuria and bacteriuria. Cultures are pending, in the meantime the patient is receiving antibiotics. Chest x-ray showed cardiomegaly otherwise unremarkable. After I evaluated the patient, I recommended transfer to a regular medical floor. Review of Systems 14 point review of systems were obtained, please refer to pertinent positives and negatives in HPI. Past Medical History Past Medical History: Cancer, Hyperlipidemia, Hypertension, Osteoarthritis (OA) , Pneumonia Additional Past Medical History / Comment(s): vaginal bleeding summer 2015, D& Cx2, urinary leakage, BILATERAL BREAST CANCER with surgery and chemo/radiation, severe LYMPHEDEMA BILATERAL LEGS, venostasis-past sores on back of legs, past lower leg cellulitis, chronic anemia since 2013, UTI'S, on gout medicine for increase uric acid level but stated never had flare up of gout. morbid obesity History of Any Multi-Drug Resistant Organisms: None Reported Past Surgical History: Adenoidectomy, Breast Surgery, Tonsillectomy Additional Past Surgical History / Comment(s): partial mastectomy left breast, LUMPECTOMY RIGHT BREAST, lymph nodes removed left axillae. Past Anesthesia/Blood Transfusion Reactions: No Reported Reaction Additional Past Anesthesia/Blood Transfusion Reaction / Comment(s): Pt has received blood in past without reaction. Past Psychological History: No Psychological Hx Reported, Anxiety Additional Psychological History / Comment(s): Patient relates that her upper body has gone from a 4X to a 1X size. No experience. No travels. No animal exposures. Pt resides with her spouse and adult jessica. She uses a cane/ walker to walk short distances. She has a W/C. Smoking Status: Never smoker Past Alcohol Use History: None Reported Past Drug Use History: None Reported - Past Family History Father Family Medical History: Coronary Artery Disease (CAD), Diabetes Mellitus Additional Family Medical History / Comment(s): has a porcine valve Mother Family Medical History: Chest Pain / Angina, Diabetes Mellitus Additional Family Medical History / Comment(s): weak heart Medications and Allergies Home Medications Medication Instructions Recorded Confirmed Type Cranberry Conc/C/Bacill Coag 1 tab PO HS 04/26/14 06/17/16 History [Cranberry Tablet] Dupo-3 Fatty Acids/Fish Oil [Fish 2 cap PO HS 04/26/14 06/17/16 History Oil 1,000 mg Softgel] Oxybutynin Chloride [Ditropan] 5 mg PO TID 04/26/14 06/17/16 History Ferrous Sulfate [Iron (65 MG 325 mg PO TID 07/04/14 06/17/16 History Elemental)] Cholecalciferol [Vitamin D3] 1,000 unit PO DAILY 01/27/15 06/17/16 History Cyanocobalamin [Vitamin B-12] 500 mcg PO DAILY 01/27/15 06/17/16 History Megestrol [Megace] 40 mg PO BID 05/18/16 06/17/16 History NIFEdipine XL [Procardia XL] 30 mg PO DAILY 05/18/16 06/17/16 History Allergies Allergy/AdvReac Type Severity Reaction Status Date / Time hydrocodone AdvReac Hallucinati Verified 06/17/16 22:25 ons Physical Exam Vitals: Vital Signs Temp Pulse Pulse Pulse Pulse Resp BP 06/19/16 14:25 96.8 F L 109 H 16 06/19/16 13:00 103 H 21 156/61 06/19/16 12:00 99.5 F 101 H 22 153/60 06/19/16 11:00 101 H 21 149/58 06/19/16 10:00 108 H 22 133/73 06/19/16 09:00 108 H 19 155/60 06/19/16 08:00 99.5 F 105 H 107 H 18 156/65 06/19/16 07:00 108 H 18 130/57 06/19/16 06:00 108 H 19 165/64 06/19/16 05:00 103 H 21 170/63 06/19/16 04:00 99.2 F 113 H 19 167/70 06/19/16 03:00 116 H 29 H 143/60 06/19/16 02:00 109 H 21 149/54 06/19/16 01:00 116 H 23 149/58 06/19/16 00:00 99.4 F 119 H 24 173/68 06/18/16 23:00 126 H 22 167/71 06/18/16 22:00 129 H 26 H 164/62 06/18/16 20:40 145 H 34 H 06/18/16 20:15 06/18/16 20:05 100.1 F H 155 H 32 H 06/18/16 18:54 99 F 100 22 06/18/16 16:30 96.7 F L 96 18 BP Pulse Ox 06/19/16 14:25 149/70 100 06/19/16 13:00 98 06/19/16 12:00 98 06/19/16 11:00 98 06/19/16 10:00 98 06/19/16 09:00 98 06/19/16 08:00 98 06/19/16 07:00 99 06/19/16 06:00 99 06/19/16 05:00 99 06/19/16 04:00 98 06/19/16 03:00 99 06/19/16 02:00 99 06/19/16 01:00 98 06/19/16 00:00 98 06/18/16 23:00 100 06/18/16 22:00 100 06/18/16 20:40 147/90 100 06/18/16 20:15 90 L 06/18/16 20:05 83/44 76 L 06/18/16 18:54 148/65 99 06/18/16 16:30 142/65 98 Intake and Output 06/18/16 06/19/16 06/19/16 22:59 06:59 14:59 Intake Total 200 3701 434 Output Total 654 901 540 Balance -454 2800 -106 Intake: Intake, IV Titration 200 3701 434 Amount Sodium Chloride 0.9% 1, 200 200 100 000 ml @ 100 mls/hr IV . Q10H [facility] Rx#:[id number] Sodium Chloride 0.9% 5, 3000 000 ml @ 999 mls/hr IV . Q5H1M [facility] Rx#:[id number] Vancomycin 2,250 mg In 501 Sodium Chloride 0.9% 500 ml @ 167 mls/hr IVPB Q24H [facility] Rx#:[id number] Vancomycin 2,250 mg In 334 Sodium Chloride 0.9% 500 ml @ 167 mls/hr IVPB Q24H [facility] Rx#:[id number] Output: Urine 654 901 540 Other: Voiding Method Indwelling Catheter Indwelling Catheter Indwelling Catheter # Bowel Movements 1 Weight 156 kg Physical Exam: Revealed a 70-year-old female, obese, in no distress. Slightly anxious. HEENT:[Neck is supple.] [No neck masses.] [No thyromegaly.] [No JVD.] Chest: [Diminished breath sounds at the bases no crackles or rhonchi or wheezes. ] Cardiac Exam: [Normal S1 and S2, no S3 gallop, no murmur.] Abdomen: [Morbidly obese, soft, nontender, no megaly, no rebound..] Extremities: [Significant lymphedema noted in both lower extremities, and chronic skin changes noted in the distal lower extremities bilaterally. Chronic venous stasis changes also noted.] Neurological Exam: [No focal neurologic deficit.] Results - Laboratory Findings CBC and BMP: 06/19/16 04:27 06/19/16 04:27 ABG ABG pH 7.47 (7.35-7.45) H 06/18/16 20:33 ABG pCO2 18 mmHg (35-45) L* 06/18/16 20:33 ABG pO2 210 mmHg (83-108) H 06/18/16 20:33 ABG O2 Saturation 99.0 % (94-97) H 06/18/16 20:33 PT/INR, D-dimer PT 11.7 sec (9.0-12.0) 06/17/16 22:55 INR 1.2 (<1.1) 06/17/16 22:55 Abnormal lab findings: Abnormal Labs 06/18/16 06/18/16 06/18/16 01:48 05:32 05:32 WBC 14.3 H RBC 2.87 L Hgb 7.8 L Hct 24.9 L MCHC RDW 16.3 H Neutrophils # 13.2 H Lymphocytes # 0.2 L ABG pH ABG pCO2 ABG pO2 ABG HCO3 ABG Total CO2 ABG O2 Saturation Chloride Carbon Dioxide BUN Creatinine Glucose POC Glucose (mg/dL) Plasma Lactic Acid Salvador Calcium Alkaline Phosphatase Total Creatine Kinase <20 L Total Protein Albumin TSH Urine Appearance Urine Protein Urine Ketones Urine Blood Ur Leukocyte Esterase Urine RBC Urine WBC Uric Acid Crystals Amorphous Sediment Urine Mucus Crossmatch See Detail 06/18/16 06/18/16 06/18/16 05:32 20:09 20:22 WBC RBC Hgb Hct MCHC RDW Neutrophils # Lymphocytes # ABG pH ABG pCO2 ABG pO2 ABG HCO3 ABG Total CO2 ABG O2 Saturation Chloride 109 H Carbon Dioxide 17 L BUN 22 H Creatinine 1.24 H Glucose 146 H POC Glucose (mg/dL) 103 H 107 H Plasma Lactic Acid Salvador Calcium 8.1 L Alkaline Phosphatase Total Creatine Kinase Total Protein Albumin TSH 6.050 H Urine Appearance Urine Protein Urine Ketones Urine Blood Ur Leukocyte Esterase Urine RBC Urine WBC Uric Acid Crystals Amorphous Sediment Urine Mucus Crossmatch 06/18/16 06/18/16 06/18/16 20:33 20:42 20:42 WBC RBC 3.14 L Hgb 8.5 L Hct 27.8 L MCHC 30.6 L RDW 16.0 H Neutrophils # 9.4 H Lymphocytes # 0.2 L ABG pH 7.47 H ABG pCO2 18 L* ABG pO2 210 H ABG HCO3 13 L ABG Total CO2 14 L ABG O2 Saturation 99.0 H Chloride Carbon Dioxide 18 L BUN 22 H Creatinine 1.24 H Glucose 112 H POC Glucose (mg/dL) Plasma Lactic Acid Salvador Calcium Alkaline Phosphatase 166 H Total Creatine Kinase Total Protein 6.1 L Albumin 2.6 L TSH Urine Appearance Urine Protein Urine Ketones Urine Blood Ur Leukocyte Esterase Urine RBC Urine WBC Uric Acid Crystals Amorphous Sediment Urine Mucus Crossmatch 06/18/16 06/19/16 06/19/16 20:42 04:27 04:27 WBC 12.9 H RBC 2.58 L Hgb 7.2 L Hct 23.9 L MCHC 30.0 L RDW 15.9 H Neutrophils # 12.0 H Lymphocytes # 0.3 L ABG pH ABG pCO2 ABG pO2 ABG HCO3 ABG Total CO2 ABG O2 Saturation Chloride 113 H Carbon Dioxide 15 L BUN 19 H Creatinine 1.10 H Glucose 125 H POC Glucose (mg/dL) Plasma Lactic Acid Salvador 2.4 H* Calcium 7.8 L Alkaline Phosphatase Total Creatine Kinase Total Protein Albumin TSH Urine Appearance Urine Protein Urine Ketones Urine Blood Ur Leukocyte Esterase Urine RBC Urine WBC Uric Acid Crystals Amorphous Sediment Urine Mucus Crossmatch 06/19/16 07:09 WBC RBC Hgb Hct MCHC RDW Neutrophils # Lymphocytes # ABG pH ABG pCO2 ABG pO2 ABG HCO3 ABG Total CO2 ABG O2 Saturation Chloride Carbon Dioxide BUN Creatinine Glucose POC Glucose (mg/dL) Plasma Lactic Acid Salvador Calcium Alkaline Phosphatase Total Creatine Kinase Total Protein Albumin TSH Urine Appearance Cloudy H Urine Protein 1+ H Urine Ketones 1+ H Urine Blood Moderate H Ur Leukocyte Esterase Moderate H Urine RBC 63 H Urine WBC 21 H Uric Acid Crystals Moderate H Amorphous Sediment Rare H Urine Mucus Rare H Crossmatch Assessment and Plan Plan: Impression: 1 chronic postmenopausal bleeding, etiology is not clear, that is being addressed by the cabin supervisor on the case. 2 acute urinary tract infection, doubt sepsis however the patient will be treated with antibiotics empirically as ordered by the admitting physician. 3 multiple comorbidities including chronic lymphedema of both lower extremities , chronic medical debility, essential hypertension, acute prerenal azotemia, chronic iron deficiency anemia secondary to chronic vaginal bleeding and blood losses chronic hyperchloremic metabolic acidosis and history of essential hypertension. Recommendation: Continue present treatment plan as outlined by the admitting physician, I will transfer the patient out of the ICU since she is hemodynamically stable, and I will follow on when necessary basis. Time with Patient: Greater than 30
--- NOTE | 2016-06-19 15:17 | IR ---
EXAMINATION TYPE: IR cvc insert >=5 years DATE OF EXAM: 06/19/2016 2:58 PM COMPARISON: NONE CLINICAL HISTORY: Infection Needs long-term intravenous access for antibiotics. PROCEDURE: After informed consent, the skin overlying the right basilic vein was localized with ultrasound and n oted to be compressible and patent. An ultrasound image was obtained and submitted on the patient's chart. The overlying skin was prepped and draped and Lidocaine was used for local anesthesia. A ski n dm was made with a scalpel. Access was gained to the vein under ultrasound guidance with a 21 ga uge needle and a 0.018 inch wire was advanced. Access site was dilated with Peel-Away sheath and cat heter tailored to the appropriate length and advanced such that the distal tip is at the cavoatrial j unction. Spot image was obtained verifying placement. Catheter was fixed to the skin with suture an d a sterile dressing was placed following hemostasis. Catheter was aspirated and flushed with saline . Patient was discharged in stable condition without complication.Maximal barrier technique is utili zed. Ultrasound image is documented on the chart. Ultrasound used with sterile technique. Fluoro time and fluoroscopic images submitted to document procedure: 23 intraoperative C-arm images, 0.2 minutes fluoroscopy time IMPRESSION: STATUS POST ULTRASOUND AND FLUOROSCOPIC GUIDED PICC LINE PLACEMENT, READY FOR USE. THIS PROCEDURE WAS PERFORMED BY THE UNDERSIGNED.
[2016-06-19] MEDS: cloNIDine HCL 0.2 MG TAB PO SCH ×2 (15:56→20:55)
[2016-06-19] MEDS: OXYBUTYNIN CHLORIDE 5 MG TAB PO SCH ×2 (15:57→20:55)
[2016-06-19] MEDS: MEGESTROL 40 MG TAB PO SCH (15:57)
[2016-06-19] MEDS: cefTRIAXone 2,000 MG in SODIUM CHLORIDE 0.9% 100 ML IVPB SCH (15:57)
[2016-06-19] MEDS: ALPRAZolam 0.25 MG TAB PO PRN (21:00)
[2016-06-19] MEDS ORDERED: NON-FORMULARY DRUG (Cranberry Conc/C/Bacill Coag [Cranberry Tablet] 1 TAB) PO SCH (21:00)
[2016-06-20] MEDS: VANCOMYCIN 2,250 MG in SODIUM CHLORIDE 0.9% 500 ML IVPB SCH (06:46)
[2016-06-20] MEDS: SODIUM CHLORIDE 0.9% 1,000 ML IV SCH (06:49)
[2016-06-20 08:49] LABS: Anisocytosis Slight; Basophils # (A) 0.1 k/uL (0-0.2); Basophils % (A) 1 %; CH 26.6; CHCM 30.4; Eosinophils # (A) 0.2 k/uL (0-0.7); Eosinophils % (A) 2 %; HCT 20.9 % (34.0-46.0); HDW 3.41; Hypochromasia Marked; Luc # (Auto) 0.18; Luc % (Auto) 3; Lymphocytes # (A) 0.3 k/uL (1.0-4.8); Lymphocytes % (A) 4 %; MCH 26.7 pg (25.0-35.0); MCHC 30.3 g/dL (31.0-37.0); MCV 87.9 fL (80.0-100.0); Mean Platelet Volume 7.6; Monocytes # (A) 0.3 k/uL (0-1.0); Monocytes % (A) 4 %; Neutrophils # (A) 6.1 k/uL (1.3-7.7); Neutrophils % (A) 87 %; Poikilocytosis Slight; RBC 2.38 m/uL (3.80-5.40); RDW 16.4 % (11.5-15.5); WBC (Perox) 7.36
[2016-06-20 08:51] LABS: HGB 6.3 gm/dL (11.4-16.0)
[2016-06-20] MEDS ORDERED: NIFEdipine XL 30 MG TAB.ER.24 PO SCH (09:00)
[2016-06-20 09:09] LABS: Magnesium 2.1 mg/dL (1.6-2.3); Phosphorous 2.9 mg/dL (2.5-4.5)
[2016-06-20] MEDS: cefTRIAXone 2,000 MG in SODIUM CHLORIDE 0.9% 100 ML IVPB SCH (09:15)
[2016-06-20] MEDS: MEGESTROL 40 MG TAB PO SCH ×2 (09:15→16:30)
[2016-06-20] MEDS: PANTOPRAZOLE 40 MG/10 ML VIAL IV SCH (09:15)
[2016-06-20] MEDS: NIFEdipine XL 30 MG TAB.ER.24 PO SCH (09:15)
[2016-06-20] MEDS: OXYBUTYNIN CHLORIDE 5 MG TAB PO SCH ×3 (09:15→21:04)
[2016-06-20] MEDS: cloNIDine HCL 0.2 MG TAB PO SCH ×3 (09:15→21:04)
[2016-06-20] MEDS: FERROUS SULFATE 325 MG TAB PO SCH ×3 (09:15→21:04)
[2016-06-20] MEDS ORDERED: FUROSEMIDE 10 MG/ML 2 ML VIAL IV ONE (09:24)
--- NOTE | 2016-06-20 10:45 | P.PN ---
Subjective Principal diagnosis: Vaginal bleeding This is a 70-year-old female with history of multiple medical problems including morbid obesity, significant and tremendous lower extremity bullous edema/lymphedema medical debility, patient has been followed up for quite some time now by the business office coordinator for her chronic daily postmenopausal vaginal bleeding. Patient was always felt to be a high risk for any surgical intervention including hysterectomy. Hence the patient was treated very conservatively. At any rate the patient was admitted this time mostly with symptoms of worsening vaginal bleeding and a hemoglobin of 7.8. Upon admission she was noted to have possibly a urinary tract infection although she had no symptoms of UTI. Patient is also known to have history of chronic anxiety. And chronic shortness of breath related to her morbid obesity and deconditioning. While on the medical floor, patient developed an episode of shortness of breath and anxiety. Hence arrangements were made to transfer the patient to the ICU. I was notified about the patient upon transfer to the ICU, ABG showed a pO2 of 210 pCO2 of 18 and pH of 7.47. Patient was given Lasix, she was also given Xanax and Ativan, and her lactic acid was noted to be 2.4. Hence we felt that she may be septic, and she was given fluid boluses, lactic acid went down to 0.9 early this morning. When I evaluated the patient in the ICU, patient was noted to be very comfortable in no distress, slightly anxious, feels a bit frustrated that no one can handle her vaginal bleeding. Her urinalysis is showing some moderate amount of blood and a bit of pyuria and bacteriuria. Cultures are pending, in the meantime the patient is receiving antibiotics. Chest x-ray showed cardiomegaly otherwise unremarkable. After I evaluated the patient, I recommended transfer to a regular medical floor. Patient was reevaluated today on 06/20/2016, and she was on the medical floor. However she was noted to have significant vaginal bleeding this morning, and she was passing significant amount of clots as noted by the nurse taking care of the patient. Hemoglobin was initially 8.5 on admission, was 7.2 yesterday, and it is 6.3 today. Hence the patient will be given 2 units of packed RBCs, in the meantime should be transferred to the intensive care unit. Her business office coordinator was notified about that massive vaginal bleeding, and eventually the patient will definitely need some surgical intervention. And if it could not be done in our institution, I would assume the business office coordinator on the case we' ll make arrangements for her to be sent to a tertiary care center for surgical intervention possible hysterectomy. She is definitely high risk for surgery, but I believe the benefits of surgery at this point outweigh the risks, and it is likely the patient will do poorly if no surgical intervention is done. However that's a decision that has to be made by the business office coordinator on the case who has been seeing the patient for quite some time regarding her vaginal bleeding. Objective - Vital Signs Vital signs: Vital Signs Temp 98.4 F 06/20/16 07:00 Pulse 100 06/20/16 08:00 Resp 20 06/20/16 07:00 BP 146/69 06/20/16 07:00 Pulse Ox 99 06/20/16 07:00 Intake & Output 06/19/16 06/20/16 06/20/16 18:59 06:59 18:59 Intake Total 434 Output Total 540 1050 Balance -106 -1050 Weight 159.5 kg Intake: Intake, IV Titration 434 Amount Sodium Chloride 0.9% 1, 100 000 ml @ 100 mls/hr IV . Q10H [facility] Rx#:[id number] Vancomycin 2,250 mg In 334 Sodium Chloride 0.9% 500 ml @ 167 mls/hr IVPB Q24H [facility] Rx#:[id number] Output: Urine 540 1050 Other: Voiding Method Indwelling Catheter Indwelling Catheter # Voids 1 # Bowel Movements 0 - Exam Physical Exam: Revealed a 70-year-old female, obese, in no distress. Looks pale and mucous membranes are dry. HEENT:[Neck is supple.] [No neck masses.] [No thyromegaly.] [No JVD.] Chest: [Diminished breath sounds at the bases no crackles or rhonchi or wheezes. ] Cardiac Exam: [Normal S1 and S2, no S3 gallop, no murmur.] Abdomen: [Morbidly obese, soft, nontender, no megaly, no rebound..] Extremities: [Significant lymphedema noted in both lower extremities, and chronic skin changes noted in the distal lower extremities bilaterally. Chronic venous stasis changes also noted.] Neurological Exam: [No focal neurologic deficit.] - Labs CBC & Chem 7: 06/20/16 08:15 06/19/16 04:27 Labs: Abnormal Lab Results - Last 24 Hours (Table) 06/18/16 06/20/16 Range/Units 01:48 08:15 RBC 2.38 L (3.80-5.40) m/uL Hgb 6.3 L* (11.4-16.0) gm/dL Hct 20.9 L (34.0-46.0) % MCHC 30.3 L (31.0-37.0) g/dL RDW 16.4 H (11.5-15.5) % Lymphocytes # 0.3 L (1.0-4.8) k/uL Crossmatch See Detail Assessment and Plan Plan: Impression: 1 chronic postmenopausal bleeding, etiology is not clear, that is being addressed by the business office coordinator on the case. However considering the massive bleeding overnight, and early this morning, patient will likely be transferred back to the ICU, blood to be transfused, and again if the patient cannot be handled by gynecology in our institution, I would suggest transferring the patient to a tertiary care center. 2 acute urinary tract infection, doubt sepsis however the patient will be treated with antibiotics empirically as ordered by the admitting physician. 3 multiple comorbidities including chronic lymphedema of both lower extremities , chronic medical debility, essential hypertension, acute prerenal azotemia, chronic iron deficiency anemia secondary to chronic vaginal bleeding and blood losses chronic hyperchloremic metabolic acidosis and history of essential hypertension. Recommendation: Continue present treatment plan we'll continue to follow. Patient will be transfused with 2 units of packed RBCs now and will continue to monitor her serial CBCs. Time with Patient: Less than 30
[2016-06-20 10:49] LABS: Glucose,Whole Blood 105 mg/dL (75-99)
[2016-06-20 11:00] LABS: Calcium 8.2 mg/dL (8.4-10.2); Potassium 3.8 mmol/L (3.5-5.1)
--- NOTE | 2016-06-20 11:13 | P.PN ---
Subjective Date of service 06-19-16 Personal being dictated for Dr. Becerra Interval history: This a 70-year-old female admitted with vaginal bleeding, acute renal failure and multiple other medical issues. Last night patient developed shortness of breath with anxiety, febrile with a fever of 100.1, lactic acid of 2, transferred to ICU on 100% nonrebreather. Lactic acid post fluid boluses decreased to 0.9. O2 weaned down to 2 L nasal cannula, maintaining O2 sats of 99%. Patient has history of chronic anxiety, and patient stated she had a panic attack. Blood cultures pending. UA reporting moderate amount of leukocytes and blood. Chest x-ray stable. Maintained on antibiotics. Continues to have blood clots, evaluated by Dr. Zavaleta ,CONTACT MANAGER . States patient is a poor candidate for for surgery. Previously evaluated and before by CONTACT MANAGER oncology who also deemed her nonsurgical, please refer to Dr. Zavaleta's progress note. Hemoglobin currently 7.2. Denies chest pain, palpitations or increasing shortness of breath. Objective - Vital Signs Vital signs: Vital Signs Temp 96.8 F L 06/19/16 15:48 Pulse 106 H 06/19/16 15:48 Resp 16 06/19/16 15:48 BP 151/75 06/19/16 15:48 Pulse Ox 100 06/19/16 15:48 Intake & Output 06/19/16 06/19/16 06/20/16 06:59 18:59 06:59 Intake Total 3901 434 Output Total 955 540 Balance 2946 -106 Weight 156 kg Intake: Intake, IV Titration 3901 434 Amount Sodium Chloride 0.9% 1, 400 100 000 ml @ 100 mls/hr IV . Q10H MARICEL Rx#:[id number] Sodium Chloride 0.9% 5, 3000 000 ml @ 999 mls/hr IV . Q5H1M ONE Rx#:[id number] Vancomycin 2,250 mg In 501 Sodium Chloride 0.9% 500 ml @ 167 mls/hr IVPB Q24H MARICEL Rx#:[id number] Vancomycin 2,250 mg In 334 Sodium Chloride 0.9% 500 ml @ 167 mls/hr IVPB Q24H MARICEL Rx#:[id number] Output: Urine 955 540 Other: Voiding Method Indwelling Catheter Indwelling Catheter # Voids 0 # Bowel Movements 1 - Exam PHYSICAL EXAM: VITAL SIGNS: As above GENERAL: [Sitting up in bed,] HEENT: [Pupils equal conjunctiva normal.] NECK: [Supple, no JVD] RESPIRATORY EFFORT:[Normal] LUNGS: [Diminished with no rhonchi ,crackles or wheezes] CARDIOVASCULAR regular S1 and S2, no murmurs rubs or gallops GI: [Abdomen obese, soft, nontender, nondistended, positive bowel sounds.] PSYCH: [Alert and oriented -3, mood and affect normal.] SKIN: Chronic lymphadema with venous stasis NEURO: [No focal deficits] - Labs CBC & Chem 7: 06/20/16 08:15 06/20/16 08:15 Labs: Abnormal Lab Results - Last 24 Hours (Table) 06/18/16 06/18/16 06/18/16 Range/Units 20:33 20:42 20:42 WBC (3.8-10.6) k/uL RBC 3.14 L (3.80-5.40) m/uL Hgb 8.5 L (11.4-16.0) gm/dL Hct 27.8 L (34.0-46.0) % MCHC 30.6 L (31.0-37.0) g/dL RDW 16.0 H (11.5-15.5) % Neutrophils # 9.4 H (1.3-7.7) k/uL Lymphocytes # 0.2 L (1.0-4.8) k/uL ABG pH 7.47 H (7.35-7.45) ABG pCO2 18 L* (35-45) mmHg ABG pO2 210 H (83-108) mmHg ABG HCO3 13 L (21-25) mmol/L ABG Total CO2 14 L (19-24) mmol/L ABG O2 Saturation 99.0 H (94-97) % Chloride (98-107) mmol/L Carbon Dioxide 18 L (22-30) mmol/L BUN 22 H (7-17) mg/dL Creatinine 1.24 H (0.52-1.04) mg/dL Glucose 112 H (74-99) mg/dL Plasma Lactic Acid Salvador (0.7-2.0) mmol/L Calcium (8.4-10.2) mg/dL Alkaline Phosphatase 166 H (38-126) U/L Total Protein 6.1 L (6.3-8.2) g/dL Albumin 2.6 L (3.5-5.0) g/dL Urine Appearance (Clear) Urine Protein (Negative) Urine Ketones (Negative) Urine Blood (Negative) Ur Leukocyte Esterase (Negative) Urine RBC (0-5) /hpf Urine WBC (0-5) /hpf Uric Acid Crystals (None) /hpf Amorphous Sediment (None) /hpf Urine Mucus (None) /hpf 06/18/16 06/19/16 06/19/16 Range/Units 20:42 04:27 04:27 WBC 12.9 H (3.8-10.6) k/uL RBC 2.58 L (3.80-5.40) m/uL Hgb 7.2 L (11.4-16.0) gm/dL Hct 23.9 L (34.0-46.0) % MCHC 30.0 L (31.0-37.0) g/dL RDW 15.9 H (11.5-15.5) % Neutrophils # 12.0 H (1.3-7.7) k/uL Lymphocytes # 0.3 L (1.0-4.8) k/uL ABG pH (7.35-7.45) ABG pCO2 (35-45) mmHg ABG pO2 (83-108) mmHg ABG HCO3 (21-25) mmol/L ABG Total CO2 (19-24) mmol/L ABG O2 Saturation (94-97) % Chloride 113 H (98-107) mmol/L Carbon Dioxide 15 L (22-30) mmol/L BUN 19 H (7-17) mg/dL Creatinine 1.10 H (0.52-1.04) mg/dL Glucose 125 H (74-99) mg/dL Plasma Lactic Acid Salvador 2.4 H* (0.7-2.0) mmol/L Calcium 7.8 L (8.4-10.2) mg/dL Alkaline Phosphatase (38-126) U/L Total Protein (6.3-8.2) g/dL Albumin (3.5-5.0) g/dL Urine Appearance (Clear) Urine Protein (Negative) Urine Ketones (Negative) Urine Blood (Negative) Ur Leukocyte Esterase (Negative) Urine RBC (0-5) /hpf Urine WBC (0-5) /hpf Uric Acid Crystals (None) /hpf Amorphous Sediment (None) /hpf Urine Mucus (None) /hpf 06/19/16 Range/Units 07:09 WBC (3.8-10.6) k/uL RBC (3.80-5.40) m/uL Hgb (11.4-16.0) gm/dL Hct (34.0-46.0) % MCHC (31.0-37.0) g/dL RDW (11.5-15.5) % Neutrophils # (1.3-7.7) k/uL Lymphocytes # (1.0-4.8) k/uL ABG pH (7.35-7.45) ABG pCO2 (35-45) mmHg ABG pO2 (83-108) mmHg ABG HCO3 (21-25) mmol/L ABG Total CO2 (19-24) mmol/L ABG O2 Saturation (94-97) % Chloride (98-107) mmol/L Carbon Dioxide (22-30) mmol/L BUN (7-17) mg/dL Creatinine (0.52-1.04) mg/dL Glucose (74-99) mg/dL Plasma Lactic Acid Salvador (0.7-2.0) mmol/L Calcium (8.4-10.2) mg/dL Alkaline Phosphatase (38-126) U/L Total Protein (6.3-8.2) g/dL Albumin (3.5-5.0) g/dL Urine Appearance Cloudy H (Clear) Urine Protein 1+ H (Negative) Urine Ketones 1+ H (Negative) Urine Blood Moderate H (Negative) Ur Leukocyte Esterase Moderate H (Negative) Urine RBC 63 H (0-5) /hpf Urine WBC 21 H (0-5) /hpf Uric Acid Crystals Moderate H (None) /hpf Amorphous Sediment Rare H (None) /hpf Urine Mucus Rare H (None) /hpf Assessment and Plan Plan: 1. [Vaginal bleeding, nonsurgical per CONTACT MANAGER and PRACTICE PERFORMANCE MANAGER at [facility], in a patient with chronic vaginal bleeding of one year]. 2. [Acute renal failure, prerenal azotemia,]. 3. Possible acute UTI 4. Hyperchloremia 5. [Morbid obesity, BMI 60.4]. 6. [Essential hypertension]. 7. [Chronic medical debility]. 8. Acute on chronic blood loss anemia secondary to chronic vaginal bleeding . Plan: Continue on current medication regime , Megace, monitoring and symptomatic treatment. Patient has been [facility] Close monitoring of vaginal bleeding, hemoglobin with repeat labs ordered for a.m. Discussed with patient and regarding transfer to a tertiary center, obtaining another opinion regarding vaginal bleeding /surgery, declined. Prognosis guarded. Further recommendations to follow. The impression and plan of care has been dictated as directed. : I performed a H&P examination of this patient and discussed the same with the dictator. I agree with the dictator's note. Any additional findings/opinions/ etc. will be noted.
[2016-06-20] MEDS: CYANOCOBALAMIN 500 MCG TAB PO SCH (12:07)
[2016-06-20] MEDS: CHOLECALCIFEROL 1,000 UNIT TAB PO SCH (12:07)
[2016-06-20 12:39] LABS: Glucose,Whole Blood 162 mg/dL (75-99)
[2016-06-20] MEDS: ITRACONAZOLE ORAL SUSP 1,500 MG/150 ML BOTTLE PO SCH (16:25)
[2016-06-20 17:40] LABS: CH 27.4; CHCM 31.6; HDW 3.63; HGB 7.6 gm/dL (11.4-16.0); Hypochromasia Moderate; MCH 27.7 pg (25.0-35.0); MCHC 31.8 g/dL (31.0-37.0); MCV 87.1 fL (80.0-100.0); Mean Platelet Volume 7.4; Poikilocytosis Slight; RBC 2.76 m/uL (3.80-5.40); RDW 15.9 % (11.5-15.5); WBC 7.7 k/uL (3.8-10.6)
--- NOTE | 2016-06-20 18:18 | P.DS ---
Providers Date of admission: 06/18/16 01:17 Expected date of discharge: 06/20/16 Attending physician: Soledad Joel Consults: 06/18/16 09:36 Consult Physician Routine Consulting Provider: Timmy Zavaleta Consult Reason/Comments: Vaginal Bleeding Do you want consulting provider notified?: Yes 06/18/16 22:12 Consult Physician Urgent Consulting Provider: Ania Srivastava Consult Reason/Comments: icu management Do you want consulting provider notified?: Already Contacted 06/19/16 09:06 Consult Physician Urgent Consulting Provider: Alexys Kent Consult Reason/Comments: Wound care, sepsis Do you want consulting provider notified?: Yes 06/20/16 09:33 Consult Physician Urgent Consulting Provider: Ania Srivastava Consult Reason/Comments: ICU mgmt, copious vaginal bleed with critical hgb Do you want consulting provider notified?: Yes Primary care physician: Chris Lassiter [facility] Hospital Course: Final Diagnoses: 1. Worsening significantly increased Vaginal bleeding, nonsurgical per COLD STRIP FEEDER and HOG PUSHER at [facility], in a patient with chronic vaginal bleeding of one year]. 2. [Acute renal failure, prerenal azotemia,]. 3. Possible acute UTI, doubt sepsis 4. Hyperchloremia 5. [Morbid obesity, BMI 60.4]. 6. [Essential hypertension]. 7. [Chronic medical debility]. 8. Acute on chronic blood loss anemia secondary to chronic vaginal bleeding . Hospital course:This is a 70-year-old female admitted with vaginal bleeding, acute renal failure and multiple other medical issues. Evaluated by Dr. Zavaleta ,COLD STRIP FEEDER, states patient is a poor candidate for surgery, placed on Megace. Previously evaluated by COLD STRIP FEEDER oncology [facility], who also deemed her nonsurgical, please refer to Dr. Zavaleta's progress note for more detail. Maintained on antibiotics. This morning developed worsening, largely increased vaginal bleeding with clots, hemoglobin dropped to 6.3, received 2 units of packed RBCs, transferred to ICU. Arrangements are being made for patient to be transferred to a tertiary center for surgical intervention as patient is a high surgical risk, unable to have surgery at this site. Microbiology 06/18/16 00:27 Urine,Voided Urine Culture - Final Mallory glabrata 06/17/16 22:55 Blood Blood Culture - Preliminary No Growth after 48 hours The impression and plan of care has been dictated as directed. : I performed a H&P examination of this patient and discussed the same with the dictator. I agree with the dictator's note. Any additional findings/opinions/ etc. will be noted. Patient Condition at Discharge: Critical Plan - Discharge Summary New Discharge Prescriptions: Omeprazole 40 mg PO DAILY #1 capsule.dr Discharge Medication List Cranberry Conc/C/Bacill Coag [Cranberry Tablet] 1 tab PO HS 04/26/14 [History] [place]-3 Fatty Acids/Fish Oil [Fish Oil 1,000 mg Softgel] 2 cap PO HS 04/26/14 [ History] Oxybutynin Chloride [Ditropan] 5 mg PO TID 04/26/14 [History] Ferrous Sulfate [Iron (65 MG Elemental)] 325 mg PO TID 07/04/14 [History] Cholecalciferol [Vitamin D3] 1,000 unit PO DAILY 01/27/15 [History] Cyanocobalamin [Vitamin B-12] 500 mcg PO DAILY 01/27/15 [History] cloNIDine HCL [Catapres] 0.2 mg PO TID tab 02/04/15 [Rx] Megestrol [Megace] 40 mg PO BID 05/18/16 [History] ALPRAZolam [Xanax] 0.25 mg PO DAILY PRN #0 tab 06/20/16 [Rx] Itraconazole Oral Susp [Sporanox Oral Susp] 200 mg PO BID@0600,1800 ml [Rx] NIFEdipine XL [Procardia XL] 30 mg PO DAILY tab.er.24 06/20/16 [Rx] Omeprazole 40 mg PO DAILY #1 capsule. 06/20/16 [Rx] Vancomycin 2,250 mg IVPB Q24H vial 06/20/16 [Rx] traMADol HCl [Ultram] 50 mg PO QID PRN #0 tab 06/20/16 [Rx] Follow up Appointment(s)/Referral(s): Chris Lassiter MD [Primary Care Provider] - 1 Week (after dc) Timmy Zavaleta MD [STAFF PHYSICIAN] - 1 Week Activity/Diet/Wound Care/Special Instructions: Transfer to tertiary center pending
--- NOTE | 2016-06-20 20:23 | P.CONS ---
History of Present Illness - Reason for Consult Consult date: 06/20/16 - Chief Complaint Weakness vaginal bleeding - History of Present Illness 70-year-old female who has superobesity and chronic lower extremity lymphedema presents to the emergency center because she was feeling very poorly. She was becoming short off, had worsening weakness and was having increasing amounts of vaginal bleeding. The bleeding was significant enough that she required transfer to intensive care unit in a receiving packed red cell transfusion. The patient has been seen by gynecology. And plans are in process. She's had this difficulty for some time. She's had workup at our facility as well as an outside hospital where biopsies failed to show any evidence of malignancy. The outside hospital believe her to be a significant risk for hysterectomy was treated medically with Megace. She pronounced to be failing this regiment and presents to Hospital. Urine culture has been shown to be positive and with that the infectious diseases consultation was requested. Review of Systems HEENT: Feels poorly with some headache but denies sinus or mild discomfort. Does not have neck stiffness. Does not have oral cavity pain or difficulty with swallowing. Lungs: Was having some shortness of breath is improved. She denies cough or sputum production or hemoptysis Cardiovascular: Denies significant chest pain, chest wall pain, orthopnea, dyspnea on exertion, syncope Gastrointestinal:Denies nausea, vomiting, diarrhea, constipation, hematemesis, melena, hematochezia. No no significant change of bowel habit noticed. Musculoskeletal: denies significant myalgias or arthralgias. No new joint swelling. Denies new back pain. Skin: Denies new rash or lesions. No new ulcers or wounds are related.. Has a chronic lymphedema and chronic skin changes to the lower extremities. Neuro: Denies headache or visual change. Denies any new onset weakness or difficulty with ambulation. Denies falls or seizures. Psychiatric: Very anxious about her bleeding is concerned that she might Endocrine: Chronic fatigue and obesity Past Medical History Past Medical History: Cancer, Hyperlipidemia, Hypertension, Osteoarthritis (OA) , Pneumonia Additional Past Medical History / Comment(s): vaginal bleeding summer 2015, D& Cx2, urinary leakage, BILATERAL BREAST CANCER with surgery and chemo/radiation, severe LYMPHEDEMA BILATERAL LEGS, venostasis-past sores on back of legs, past lower leg cellulitis, chronic anemia since 2013, UTI'S, on gout medicine for increase uric acid level but stated never had flare up of gout. morbid obesity History of Any Multi-Drug Resistant Organisms: None Reported Past Surgical History: Adenoidectomy, Breast Surgery, Tonsillectomy Additional Past Surgical History / Comment(s): partial mastectomy left breast, LUMPECTOMY RIGHT BREAST, lymph nodes removed left axillae. Past Anesthesia/Blood Transfusion Reactions: No Reported Reaction Additional Past Anesthesia/Blood Transfusion Reaction / Comm: Pt has received blood in past without reaction. Past Psychological History: No Psychological Hx Reported, Anxiety Additional Psychological History / Comment(s): Patient relates that her upper body has gone from a 4X to a 1X size. No experience. No travels. No animal exposures. Pt resides with her spouse and adult daughter. She uses a cane/walker to walk short distances. She has a W/C. Smoking Status: Never smoker Past Alcohol Use History: None Reported Past Drug Use History: None Reported - Past Family History Father Family Medical History: Coronary Artery Disease (CAD), Diabetes Mellitus Additional Family Medical History / Comment(s): has a porcine valve Mother Family Medical History: Chest Pain / Angina, Diabetes Mellitus Additional Family Medical History / Comment(s): weak heart Medications and Allergies Home Medications and Allergies Comment(s): Current Medications Acetaminophen (Tylenol Tab) 650 mg PO Q6HR PRN PRN Reason: Mild Pain or Fever > 100.5 Alprazolam (Xanax) 0.25 mg PO DAILY PRN PRN Reason: Anxiety Last Admin: 06/19/16 21:00 Dose: 0.25 mg Cholecalciferol (Vitamin D3) 1,000 unit PO DAILY@1200 [facility] Last Admin: 06/20/16 12:07 Dose: Not Given Clonidine (Catapres) 0.2 mg PO TID [facility] Last Admin: 06/20/16 16:24 Dose: 0.2 mg Cyanocobalamin (Vitamin B-12) 500 mcg PO DAILY@1200 [facility] Last Admin: 06/20/16 12:07 Dose: Not Given Ferrous Sulfate (Feosol) 325 mg PO TID [facility] Last Admin: 06/20/16 16:24 Dose: 325 mg Sodium Chloride (Saline 0.9%) 1,000 mls @ 100 mls/hr IV .Q10H [facility] Last Admin: 06/20/16 06:49 Dose: 100 mls/hr Vancomycin HCl 2,250 mg/ (Sodium Chloride) 500 mls @ 167 mls/hr IVPB Q24H [facility] Last Admin: 06/20/16 06:46 Dose: 167 mls/hr Itraconazole (Sporanox Oral Susp) 200 mg PO BID@0600,1800 [facility] Last Admin: 06/20/16 16:25 Dose: 200 mg Megestrol Acetate (Megace) 40 mg PO AC-BID [facility] Last Admin: 06/20/16 16:30 Dose: 40 mg Miscellaneous Information (Magnesium Per Protocol) 1 each MISCELLANE DAILY PRN ; Protocol PRN Reason: Per Protocol Naloxone HCl (Narcan) 0.2 mg IV Q2M PRN PRN Reason: Opioid Reversal Nifedipine (Procardia Xl) 30 mg PO DAILY [facility] Last Admin: 06/20/16 09:15 Dose: 30 mg Oxybutynin Chloride (Ditropan) 5 mg PO TID [facility] Last Admin: 06/20/16 16:24 Dose: 5 mg Pantoprazole Sodium (Protonix) 40 mg IV DAILY [facility] Last Admin: 06/20/16 09:15 Dose: 40 mg Sodium Chloride (Saline Flush) 20 ml IV Q4HR PRN PRN Reason: PICC Line Sodium Chloride (Saline Flush) 10 ml IV WEEKLY [facility] Sodium Chloride (Saline Flush) 10 ml IV Q4HR PRN PRN Reason: PICC Line Tramadol HCl (Ultram) 50 mg PO QID PRN PRN Reason: Pain/Discomfort Home Medications Medication Instructions Recorded Confirmed Type Cranberry Conc/C/Bacill Coag 1 tab PO 04/26/14 06/17/16 History [Cranberry Tablet] Proctor-3 Fatty Acids/Fish Oil [Fish 2 cap PO 04/26/14 06/17/16 History Oil 1,000 mg Softgel] Oxybutynin Chloride [Ditropan] 5 mg PO TID 04/26/14 06/17/16 History Ferrous Sulfate [Iron (65 MG 325 mg PO TID 07/04/14 06/17/16 History Elemental)] Cholecalciferol [Vitamin D3] 1,000 unit PO DAILY 01/27/15 06/17/16 History Cyanocobalamin [Vitamin B-12] 500 mcg PO DAILY 01/27/15 06/17/16 History Megestrol [Megace] 40 mg PO BID 05/18/16 06/17/16 History Allergies Allergy/AdvReac Type Severity Reaction Status Date / Time hydrocodone AdvReac Hallucinati Verified 06/17/16 22:25 ons Physical Exam Vitals: Vital Signs Temp Pulse Pulse Resp BP BP Pulse Ox 06/20/16 19:00 84 21 125/62 98 06/20/16 18:00 73 17 123/63 97 06/20/16 17:00 88 21 134/67 99 06/20/16 16:00 98 F 89 98 19 150/73 99 06/20/16 15:30 89 19 150/73 99 06/20/16 15:00 94 20 151/76 99 06/20/16 14:00 87 21 156/80 99 06/20/16 13:45 98.2 F 91 21 157/79 99 06/20/16 13:30 89 21 157/79 99 06/20/16 13:25 98 F 86 21 156/80 99 06/20/16 13:00 98.2 F 89 20 144/70 99 06/20/16 12:30 98.1 F 85 18 153/65 99 06/20/16 12:00 87 20 140/75 98 06/20/16 11:40 98.3 F 93 22 128/59 99 06/20/16 11:33 98 20 06/20/16 11:30 90 22 128/59 99 06/20/16 10:49 98.3 F 94 24 127/62 99 06/20/16 08:00 100 06/20/16 07:00 98.4 F 100 20 146/69 99 06/19/16 23:00 98.3 F 108 H 16 154/74 99 Intake and Output 06/20/16 06/20/16 06/20/16 06:59 14:59 22:59 Intake Total 500 550 Output Total 353 519 8226 Balance -200 205 -875 Intake: Intake, IV Titration 500 500 Amount Sodium Chloride 0.9% 1, 500 500 000 ml @ 100 mls/hr IV . Q10H [facility] Rx#:[id number] Oral 50 Blood Product 0 Rc As-1 Unit 0 [id number] Rc Cpda-1 Unit 0 [id number] Output: Urine 686 200 4005 Other 75 Other: Voiding Method Indwelling Catheter Indwelling Catheter # Voids 1 1 # Bowel Movements 0 0 0 Weight 159.5 kg 70-year-old woman who is comfortable at this time. She is in ICU bed. HEENT: Anicteric conjunctiva are pink and moist nasal mucosa grossly intact without significant lesions, there is no thrush. Neck: The neck is supple without significant lymphadenopathy or thyromegaly. Lungs: Good bilateral air entry without significant crackles or wheezing. There is no significant bronchial sounds. There is no egophony or dullness. Heart: Irregular with a soft S4. No significant murmur click or rub is noted Abdomen: Obese, soft, I can palpate no mass or organomegaly. Extremities: The upper extremity shows the IV site right arm with some bruising. Otherwise upper extremities are without significant lesions. The lower extremities from the waist down show evidence of the extensive lymphedema, lipedema and significant skin changes. The lipodermatosclerosis is extensive. She has large folds on both legs abdominal wall as well as buttocks to her flank. Please see the nursing photography regarding the scattered small open areas on the buttocks which is somewhat improved from the last evaluation. Neuro: Awake alert oriented to person place and time. There are no acute new gross focal sensory motor deficits. With the nurse present there is evidence of bright red blood that is draining from the vaginal vault. Results CBC & Chem 7: 06/20/16 17:30 06/20/16 08:15 Labs: Abnormal Lab Results - Last 24 Hours (Table) 06/18/16 06/20/16 06/20/16 Range/Units 01:48 08:15 08:15 RBC 2.38 L (3.80-5.40) m/uL Hgb 6.3 L* (11.4-16.0) gm/dL Hct 20.9 L (34.0-46.0) % MCHC 30.3 L (31.0-37.0) g/dL RDW 16.4 H (11.5-15.5) % Lymphocytes # 0.3 L (1.0-4.8) k/uL Chloride 114 H (98-107) mmol/L Carbon Dioxide 18 L (22-30) mmol/L Creatinine 1.12 H (0.52-1.04) mg/dL POC Glucose (mg/dL) (75-99) mg/dL Calcium 8.2 L (8.4-10.2) mg/dL Crossmatch See Detail 06/20/16 06/20/16 06/20/16 Range/Units 10:47 12:37 17:30 RBC 2.76 L (3.80-5.40) m/uL Hgb 7.6 L (11.4-16.0) gm/dL Hct 24.0 L (34.0-46.0) % MCHC (31.0-37.0) g/dL RDW 15.9 H (11.5-15.5) % Lymphocytes # (1.0-4.8) k/uL Chloride (98-107) mmol/L Carbon Dioxide (22-30) mmol/L Creatinine (0.52-1.04) mg/dL POC Glucose (mg/dL) 105 H 162 H (75-99) mg/dL Calcium (8.4-10.2) mg/dL Crossmatch Laboratory Results WBC 7.7 k/uL (3.8-10.6) 06/20/16 17:30 RBC 2.76 m/uL (3.80-5.40) L 06/20/16 17:30 Hgb 7.6 gm/dL (11.4-16.0) L 06/20/16 17:30 Hct 24.0 % (34.0-46.0) L 06/20/16 17:30 MCV 87.1 fL (80.0-100.0) 06/20/16 17:30 MCH 27.7 pg (25.0-35.0) 06/20/16 17:30 MCHC 31.8 g/dL (31.0-37.0) 06/20/16 17:30 RDW 15.9 % (11.5-15.5) H 06/20/16 17:30 Plt Count 236 k/uL (150-450) 06/20/16 17:30 Neutrophils % 87 % 06/20/16 08:15 Lymphocytes % 4 % 06/20/16 08:15 Monocytes % 4 % 06/20/16 08:15 Eosinophils % 2 % 06/20/16 08:15 Basophils % 1 % 06/20/16 08:15 Neutrophils # 6.1 k/uL (1.3-7.7) 06/20/16 08:15 Lymphocytes # 0.3 k/uL (1.0-4.8) L 06/20/16 08:15 Monocytes # 0.3 k/uL (0-1.0) 06/20/16 08:15 Eosinophils # 0.2 k/uL (0-0.7) 06/20/16 08:15 Basophils # 0.1 k/uL (0-0.2) 06/20/16 08:15 Hypochromasia Moderate 06/20/16 17:30 Poikilocytosis Slight 06/20/16 17:30 Anisocytosis Slight 06/20/16 08:15 PT 11.7 sec (9.0-12.0) 06/17/16 22:55 INR 1.2 (<1.1) 06/17/16 22:55 APTT 24.7 sec (22.0-30.0) 06/17/16 22:55 Sample Site R RADIAL 06/18/16 20:33 ABG pH 7.47 (7.35-7.45) H 06/18/16 20:33 ABG pCO2 18 mmHg (35-45) L* 06/18/16 20:33 ABG pO2 210 mmHg (83-108) H 06/18/16 20:33 ABG HCO3 13 mmol/L (21-25) L 06/18/16 20:33 ABG Total CO2 14 mmol/L (19-24) L 06/18/16 20:33 ABG O2 Saturation 99.0 % (94-97) H 06/18/16 20:33 ABG Base Excess -9.9 mmol/L 06/18/16 20:33 FiO2 100 % 06/18/16 20:33 Sodium 140 mmol/L (137-145) 06/20/16 08:15 Potassium 3.8 mmol/L (3.5-5.1) 06/20/16 08:15 Chloride 114 mmol/L (98-107) H 06/20/16 08:15 Carbon Dioxide 18 mmol/L (22-30) L 06/20/16 08:15 Anion Gap 8 mmol/L 06/20/16 08:15 BUN 16 mg/dL (7-17) 06/20/16 08:15 Creatinine 1.12 mg/dL (0.52-1.04) H 06/20/16 08:15 Est GFR (MDRD) Af Amer 58 (>60 ml/min/1.73 sqM) 06/20/16 08:15 Est GFR (MDRD) Non-Af 48 (>60 ml/min/1.73 sqM) 06/20/16 08:15 Glucose 99 mg/dL (74-99) 06/20/16 08:15 POC Glucose (mg/dL) 162 mg/dL (75-99) H 06/20/16 12:37 POC Glu Pressure Steamer Tender Cyndy [place] 06/20/16 12:37 Plasma Lactic Acid [place] 0.8 mmol/L (0.7-2.0) 06/19/16 04:27 Calcium 8.2 mg/dL (8.4-10.2) L 06/20/16 08:15 Phosphorus 2.9 mg/dL (2.5-4.5) 06/20/16 08:15 Magnesium 2.1 mg/dL (1.6-2.3) 06/20/16 08:15 Total Bilirubin 0.7 mg/dL (0.2-1.3) 06/18/16 20:42 AST 21 U/L (14-36) 06/18/16 20:42 ALT 21 U/L (9-52) 06/18/16 20:42 Alkaline Phosphatase 166 U/L (38-126) H 06/18/16 20:42 Total Creatine Kinase 33 U/L (30-135) 06/18/16 11:36 CK-MB (CK-2) 0.6 ng/mL (0.0-2.4) 06/18/16 11:36 CK-MB (CK-2) Rel Index 1.8 06/18/16 11:36 Troponin I <0.012 ng/mL (0.000-0.034) 06/18/16 11:36 Total Protein 6.1 g/dL (6.3-8.2) L 06/18/16 20:42 Albumin 2.6 g/dL (3.5-5.0) L 06/18/16 20:42 TSH 6.050 mIU/L (0.465-4.680) H 06/18/16 05:32 Free T4 1.31 ng/dL (0.78-2.19) 06/18/16 05:32 Cortisol 24 ug/dL 06/17/16 22:55 Urine Color Yellow 06/19/16 07:09 Urine Appearance Cloudy (Clear) H 06/19/16 07:09 Urine pH 5.0 (5.0-8.0) 06/19/16 07:09 Ur Specific [place] 1.009 (1.001-1.035) 06/19/16 07:09 Urine Protein 1+ (Negative) H 06/19/16 07:09 Urine Glucose (UA) Negative (Negative) 06/19/16 07:09 Urine Ketones 1+ (Negative) H 06/19/16 07:09 Urine Blood Moderate (Negative) H 06/19/16 07:09 Urine Nitrate Negative (Negative) 06/19/16 07:09 Urine Bilirubin Negative (Negative) 06/19/16 07:09 Urine Urobilinogen <2.0 mg/dL (<2.0) 06/19/16 07:09 Ur Leukocyte Esterase Moderate (Negative) H 06/19/16 07:09 Urine RBC 63 /hpf (0-5) H 06/19/16 07:09 Urine WBC 21 /hpf (0-5) H 06/19/16 07:09 Ur Squamous Epith Cells 1 /hpf (0-4) 06/19/16 07:09 Uric Acid Crystals Moderate /hpf (None) H 06/19/16 07:09 Amorphous Sediment Rare /hpf (None) H 06/19/16 07:09 Urine Mucus Rare /hpf (None) H 06/19/16 07:09 Influenza Type A RNA Not Detected (Not Detectd) 06/17/16 23:06 Influenza Type B (PCR) Not Detected (Not Detectd) 06/17/16 23:06 Blood Type O Negative 06/18/16 01:48 Blood Type Recheck No 06/18/16 01:48 Antibody Screen NEGATIVE 06/18/16 01:48 Crossmatch See Detail 06/18/16 01:48 Spec Expiration Date 06/21/2016234706/18/16 01:48 Microbiology 06/18/16 00:27 Urine,Voided Urine Culture - Final Mallory glabrata 06/17/16 22:55 Blood Blood Culture - Preliminary No Growth after 48 hours Assessment and Plan (1) Vaginal bleeding Narrative/Plan: 70-year-old female who suffers from superobesity is evidence of the chronic lower extremity lipodermatosclerosis and chronic lymphedema and venous stasis with chronic skin changes presents to Hospital not feeling well. She had weakness and evidence of anemia. She's had ongoing vaginal bleeding that has caused her to have significant blood loss anemia requiring a transfusion. The patient has been seen by gynecology as well as the legal process specialist due to her acute blood loss anemia. She will be transferred to the tertiary center for gynecological oncology evaluation. Our local team would not be able to provide her surgery. Her prior tertiary center also had difficulty offering her surgery. However at this time with her ongoing significant bleeding appears will need to have significant consideration for a surgical plan. She did have a fever to remission as well as markedly abnormal urinalysis. Urine culture shows evidence of Mallory glabrata. Given the fact that she is somewhat symptomatic, she's had fever is having great difficulties with bleeding. Treatment with itraconazole as suggested, Diflucan will not work given that this is Mallory glabrata. Antifungal therapy was ordered and she will likely transfer to the other facility soon. Status: Chronic (2) Mallory glabrata infection Status: Acute
[2016-06-21 04:47] LABS: Basophils % (A) 0 %; CH 27.5; CHCM 31.2; Eosinophils # (A) 0.2 k/uL (0-0.7); Eosinophils % (A) 3 %; HCT 25.1 % (34.0-46.0); HDW 3.72; HGB 7.7 gm/dL (11.4-16.0); Hypochromasia Marked; Luc # (Auto) 0.13; Luc % (Auto) 2; Lymphocytes # (A) 0.4 k/uL (1.0-4.8); Lymphocytes % (A) 7 %; MCHC 30.6 g/dL (31.0-37.0); MCV 88.4 fL (80.0-100.0); Monocytes # (A) 0.3 k/uL (0-1.0); Monocytes % (A) 5 %; Neutrophils # (A) 5.3 k/uL (1.3-7.7); Neutrophils % (A) 83 %; Poikilocytosis Slight; RBC 2.84 m/uL (3.80-5.40); RDW 15.8 % (11.5-15.5); WBC 6.4 k/uL (3.8-10.6); WBC (Perox) 6.74
[2016-06-21 05:00] LABS: Anion Gap 7 mmol/L; Blood Urea Nitrogen 15 mg/dL (7-17); Carbon Dioxide 18 mmol/L (22-30); Chloride 115 mmol/L (98-107); Glucose 81 mg/dL (74-99); Non-African American GFR(MDRD) 55 (>60 ml/min/1.73 sqM); Phosphorous 2.8 mg/dL (2.5-4.5); Potassium 3.4 mmol/L (3.5-5.1); Sodium 140 mmol/L (137-145)
[2016-06-21] MEDS: ITRACONAZOLE ORAL SUSP 1,500 MG/150 ML BOTTLE PO SCH (06:03)
[2016-06-21] MEDS: VANCOMYCIN 2,250 MG in SODIUM CHLORIDE 0.9% 500 ML IVPB SCH (06:04)
[2016-06-21] MEDS: POTASSIUM CHLORIDE 10 MEQ in WATER FOR INJECTION 1 100ML.BAG IVPB SCH ×2 (06:04→09:10)
[2016-06-21] MEDS: SODIUM CHLORIDE 0.9% 1,000 ML IV SCH ×3 (09:09→12:13)
[2016-06-21] MEDS: MEGESTROL 40 MG TAB PO SCH (09:10)
[2016-06-21] MEDS: cloNIDine HCL 0.2 MG TAB PO SCH (09:10)
[2016-06-21] MEDS: NIFEdipine XL 30 MG TAB.ER.24 PO SCH (09:10)
[2016-06-21] MEDS: FERROUS SULFATE 325 MG TAB PO SCH (09:11)
[2016-06-21] MEDS: OXYBUTYNIN CHLORIDE 5 MG TAB PO SCH (09:12)
[2016-06-21] MEDS: PANTOPRAZOLE 40 MG/10 ML VIAL IV SCH (09:12)
--- NOTE | 2016-06-21 11:52 | P.PN ---
Subjective Principal diagnosis: Vaginal bleeding This is a 70-year-old female with history of multiple medical problems including morbid obesity, significant and tremendous lower extremity bullous edema/lymphedema medical debility, patient has been followed up for quite some time now by the emissions inspector for her chronic daily postmenopausal vaginal bleeding. Patient was always felt to be a high risk for any surgical intervention including hysterectomy. Hence the patient was treated very conservatively. At any rate the patient was admitted this time mostly with symptoms of worsening vaginal bleeding and a hemoglobin of 7.8. Upon admission she was noted to have possibly a urinary tract infection although she had no symptoms of UTI. Patient is also known to have history of chronic anxiety. And chronic shortness of breath related to her morbid obesity and deconditioning. While on the medical floor, patient developed an episode of shortness of breath and anxiety. Hence arrangements were made to transfer the patient to the ICU. I was notified about the patient upon transfer to the ICU, ABG showed a pO2 of 210 pCO2 of 18 and pH of 7.47. Patient was given Lasix, she was also given Xanax and Ativan, and her lactic acid was noted to be 2.4. Hence we felt that she may be septic, and she was given fluid boluses, lactic acid went down to 0.9 early this morning. When I evaluated the patient in the ICU, patient was noted to be very comfortable in no distress, slightly anxious, feels a bit frustrated that no one can handle her vaginal bleeding. Her urinalysis is showing some moderate amount of blood and a bit of pyuria and bacteriuria. Cultures are pending, in the meantime the patient is receiving antibiotics. Chest x-ray showed cardiomegaly otherwise unremarkable. After I evaluated the patient, I recommended transfer to a regular medical floor. Patient was reevaluated today on 06/20/2016, and she was on the medical floor. However she was noted to have significant vaginal bleeding this morning, and she was passing significant amount of clots as noted by the nurse taking care of the patient. Hemoglobin was initially 8.5 on admission, was 7.2 yesterday, and it is 6.3 today. Hence the patient will be given 2 units of packed RBCs, in the meantime should be transferred to the intensive care unit. Her emissions inspector was notified about that massive vaginal bleeding, and eventually the patient will definitely need some surgical intervention. And if it could not be done in our institution, I would assume the emissions inspector on the case we' ll make arrangements for her to be sent to a tertiary care center for surgical intervention possible hysterectomy. She is definitely high risk for surgery, but I believe the benefits of surgery at this point outweigh the risks, and it is likely the patient will do poorly if no surgical intervention is done. However that's a decision that has to be made by the emissions inspector on the case who has been seeing the patient for quite some time regarding her vaginal bleeding. Patient was reevaluated today on 06/21/2016, she is doing well, she received a total of 3 units of packed RBCs since admission. Continues to have vaginal bleeding, and I believe arrangements are being made for possibly transferring the patient to [facility]. Hemoglobin today is 7.7. Electrolytes were reviewed, potassium is slightly low at 3.4 being corrected as per protocol. Patient denies any shortness of breath, she feels generally weak. Objective - Vital Signs Vital signs: Vital Signs Temp 98.5 F 06/21/16 08:00 Pulse 82 06/21/16 11:00 Resp 26 H 06/21/16 11:00 BP 115/59 06/21/16 11:00 Pulse Ox 98 06/21/16 11:00 Intake & Output 06/20/16 06/21/16 06/21/16 18:59 06:59 18:59 Intake Total 900 1310 500 Output Total 1545 1200 675 Balance -645 110 -175 Weight 158 kg 158 kg Intake: IV 20 200 Sodium Chloride 0.9% 1, 200 000 ml @ 100 mls/hr IV . Q10H [facility] Rx#:[id number] itraconazole 20 Intake, IV Titration 900 1200 300 Amount Potassium Chloride 10 meq 200 In Water For Injection 1 100ml.bag @ 100 mls/hr IVPB Q1H [facility] Rx#: [id number] Sodium Chloride 0.9% 1, 900 1200 100 000 ml @ 100 mls/hr IV . Q10H [facility] Rx#:[id number] Oral 90 Blood Product 0 Rc As-1 Unit 0 [id number] Rc Cpda-1 Unit 0 [id number] Output: Urine 1545 1125 675 Other 75 Other: Voiding Method Indwelling Catheter Indwelling Catheter Indwelling Catheter # Voids 1 # Bowel Movements 0 1 - Exam Physical Exam: Revealed a 70-year-old female, obese, in no distress. Looks pale and mucous membranes are dry. HEENT:[Neck is supple.] [No neck masses.] [No thyromegaly.] [No JVD.] Chest: [Diminished breath sounds at the bases no crackles or rhonchi or wheezes. ] Cardiac Exam: [Normal S1 and S2, no S3 gallop, no murmur.] Abdomen: [Morbidly obese, soft, nontender, no megaly, no rebound..] Extremities: [Significant lymphedema noted in both lower extremities, and chronic skin changes noted in the distal lower extremities bilaterally. Chronic venous stasis changes also noted.] Neurological Exam: [No focal neurologic deficit.] - Labs CBC & Chem 7: 06/21/16 04:28 06/21/16 04:28 Labs: Abnormal Lab Results - Last 24 Hours (Table) 06/18/16 06/20/16 06/20/16 Range/Units 01:48 12:37 17:30 RBC 2.76 L (3.80-5.40) m/uL Hgb 7.6 L (11.4-16.0) gm/dL Hct 24.0 L (34.0-46.0) % MCHC (31.0-37.0) g/dL RDW 15.9 H (11.5-15.5) % Lymphocytes # (1.0-4.8) k/uL Potassium (3.5-5.1) mmol/L Chloride (98-107) mmol/L Carbon Dioxide (22-30) mmol/L POC Glucose (mg/dL) 162 H (75-99) mg/dL Calcium (8.4-10.2) mg/dL Crossmatch See Detail 06/21/16 06/21/16 Range/Units 04:28 04:28 RBC 2.84 L (3.80-5.40) m/uL Hgb 7.7 L (11.4-16.0) gm/dL Hct 25.1 L (34.0-46.0) % MCHC 30.6 L (31.0-37.0) g/dL RDW 15.8 H (11.5-15.5) % Lymphocytes # 0.4 L (1.0-4.8) k/uL Potassium 3.4 L (3.5-5.1) mmol/L Chloride 115 H (98-107) mmol/L Carbon Dioxide 18 L (22-30) mmol/L POC Glucose (mg/dL) (75-99) mg/dL Calcium 8.0 L (8.4-10.2) mg/dL Crossmatch Assessment and Plan Plan: Impression: 1 chronic postmenopausal bleeding, etiology is not clear, that is being addressed by the emissions inspector on the case. However considering the massive bleeding , patient required so far 3 units of packed RBCs, she is still considered high risk by gynecology staff, hence I believe the ramus are being made for possibly transferring the patient to a tertiary care center. And I believe that is very appropriate. 2 acute urinary tract infection, doubt sepsis however the patient will be treated with antibiotics empirically as ordered by the admitting physician. 3 multiple comorbidities including chronic lymphedema of both lower extremities , chronic medical debility, essential hypertension, acute prerenal azotemia, chronic iron deficiency anemia secondary to chronic vaginal bleeding and blood losses chronic hyperchloremic metabolic acidosis and history of essential hypertension. Recommendation: Continue present treatment plan we'll continue to follow. Patient will be transfused with 3 units of packed RBCs now and will continue to monitor her serial CBCs. Time with Patient: Less than 30
[2016-06-21] MEDS: CYANOCOBALAMIN 500 MCG TAB PO SCH (12:13)
[2016-06-21] MEDS: CHOLECALCIFEROL 1,000 UNIT TAB PO SCH (12:13)
[2016-06-21] MEDS: ALPRAZolam 0.25 MG TAB PO PRN (13:35)
[2016-06-21 13:52] VITALS: TEMP 98.3
[2016-06-21 14:22] VITALS: BP 152/59; PULSE 86; RESP 20
--- NOTE | 2016-06-21 16:12 | DS ---
DATE OF ADMISSION: 06/18/2016 DATE OF DISCHARGE: Patient is admitted with vaginal bleed and because of the multiple risk factors, hysterectomy cannot be performed in this institute. Because of which we tried [facility], which does not have any beds available. Patient was subsequently transferred to [facility] today. Patient ended up staying in the hospital last night because of which I saw and evaluated the patient. PHYSICAL EXAMINATION: GENERAL: Patient is morbidly obese, alert and oriented x3. Patient is a bit pale. HEENT: Pupils are round and equally reacting to light. EOMI. No scleral icterus. No conjunctival pallor. Normocephalic, atraumatic. No pharyngeal erythema. No thyromegaly. CARDIOVASCULAR: S1 and S2 present. No murmurs, rubs, or gallops. PULMONARY: Chest is clear to auscultation, no wheezing or crackles. ABDOMEN: Soft, nontender, nondistended, normoactive bowel sounds. No palpable organomegaly. MUSCULOSKELETAL: No joint swelling or deformity. EXTREMITIES: No cyanosis, clubbing, or pedal edema. NEUROLOGICAL: Gross neurological examination did not reveal any focal deficits. SKIN: No rashes. For further details of discharge, please refer to discharge summary from my nurse practitioner from yesterday. Consider the discharge summary as progress note. No other significant changes were made today. Since she stayed in the hospital I saw and evaluated the patient today.
[2016-06-22] MEDS ORDERED: VANCOMYCIN TROUGH DUE 1 EACH MISC MISCELLANE ONE (05:00)
== END 2016-06-21 16:09 | disposition short-term general hospital (02) | DRG 760 ==
LOC: EC 22:20 → 6SEL 06-18 01:17 → 4MS4W 06-18 18:21 → 6ICU 06-18 20:20 → 4MS4W 06-19 13:50 → 6ICU 06-20 10:30
PROVIDERS: ADMIT Internal Medicine; ATTEND Internal Medicine
PROC: B548ZZA Ultrasonography of Superior Vena Cava, Guidance (ICD-10-PCS; principal; 2016-06-19 14:17)
PROC: 02HV33Z Insertion of Infusion Device into Superior Vena Cava, Percutaneous Approach (ICD-10-PCS; principal; 2016-06-19 14:17)
PROC: B5181ZA Fluoroscopy of Superior Vena Cava using Low Osmolar Contrast, Guidance (ICD-10-PCS; principal; 2016-06-19 14:17)
DX: N95.0 Postmenopausal bleeding (principal); D62 Acute posthemorrhagic anemia; N17.9 Acute kidney failure, unspecified; E87.2 Acidosis; E87.8 Other disorders of electrolyte and fluid balance, not elsewhere classified; Z68.44 Body mass index [BMI] 60.0-69.9, adult; N39.0 Urinary tract infection, site not specified; E66.01 Morbid (severe) obesity due to excess calories; N93.9 Abnormal uterine and vaginal bleeding, unspecified; I11.9 Hypertensive heart disease without heart failure; B37.9 Candidiasis, unspecified; E78.5 Hyperlipidemia, unspecified; F41.0 Panic disorder [episodic paroxysmal anxiety]; I87.8 Other specified disorders of veins; I89.0 Lymphedema, not elsewhere classified; M10.9 Gout, unspecified; M79.3 Panniculitis, unspecified; Z82.49 Family history of ischemic heart disease and other diseases of the circulatory system; Z85.3 Personal history of malignant neoplasm of breast
CPT/HCPCS: 36415; 36430; 36569; 36600; 71010; 76856; 76937; 77001; 80048; 80053; 81001; 82533; 82550; 82553; 82805; 83605; 83735; 84100; 84439; 84443; 84484; 85025; 85027; 85610; 85730; 86850; 86900; 86901; 86920; 87040; 87086; 87502; 93005; 96365; 96366; 99291

== ENCOUNTER 2016-08-21 17:28 | Inpatient (IN) | payer MEDICARE ==
[2016-08-21 18:26] LABS: Anisocytosis Slight; Basophils % (A) 0 %; CH 26.5; CHCM 30.1; Eosinophils # (A) 0.4 k/uL (0-0.7); Eosinophils % (A) 8 %; HDW 3.81; HGB 7.2 gm/dL (11.4-16.0); Hypochromasia Marked; Luc # (Auto) 0.09; Luc % (Auto) 2; Lymphocytes # (A) 0.7 k/uL (1.0-4.8); Lymphocytes % (A) 13 %; MCH 27.5 pg (25.0-35.0); MCHC 31.2 g/dL (31.0-37.0); MCV 88.3 fL (80.0-100.0); Monocytes # (A) 0.3 k/uL (0-1.0); Monocytes % (A) 6 %; Neutrophils # (A) 3.7 k/uL (1.3-7.7); Neutrophils % (A) 71 %; Poikilocytosis Slight; RDW 16.3 % (11.5-15.5); WBC 5.3 k/uL (3.8-10.6); WBC (Perox) 5.61
[2016-08-21] MEDS ORDERED: LORazepam 2 MG/ML SYRINGE IV PRN (19:53)
[2016-08-21] MEDS ORDERED: NALOXONE 0.4 MG/ML 1 ML VIAL IV PRN (19:53)
[2016-08-21] MEDS ORDERED: ACETAMINOPHEN TAB 325 MG TAB PO PRN (19:53)
--- NOTE | 2016-08-21 19:53 | ED ---
General Adult HPI - General Source: patient, EMS, RN notes reviewed Mode of arrival: EMS Limitations: no limitations <Piyush Walsh - Last Filed: 08/21/16 19:43> <Enrique Grissom - Last Filed: 08/21/16 20:04> - General Chief complaint: Recheck/Abnormal Lab/Rx Stated complaint: Low HGB Time Seen by Provider: 08/21/16 17:38 - History of Present Illness Initial comments: This a 70-year-old female presents emergency Department from [facility] for low hemoglobin. Patient hemoglobin was 6.2 this morning. Patient states that she has intermittent vaginal bleeding which she seen multiple physicians for at [facility], and 14 here and she cannot have a hysterectomy. She was told to stick with it. She has to come in the hospital often for blood transfusion secondary to her low hemoglobin. Patient states that she is fatigued has minimal vaginal bleeding not worse than usual. Denies any dysuria she has a Urbina currently. Patient denies any fevers or chills. Denies any chest pain or shortness of breath. (Piyush Walsh) - Related Data Home Medications Medication Instructions Recorded Confirmed Cranberry Conc/C/Bacill Coag 1 tab PO HS 04/26/14 08/21/16 [Cranberry Tablet] Ferrous Sulfate [Iron (65 MG 325 mg PO QID 07/04/14 08/21/16 Elemental)] Cyanocobalamin [Vitamin B-12] 500 mcg PO HS 01/27/15 08/21/16 Megestrol [Megace] 80 mg PO BID 05/18/16 08/21/16 ALPRAZolam [Xanax] 0.25 mg PO TID PRN 08/21/16 08/21/16 Acetaminophen Tab [Tylenol] 650 mg PO Q4H PRN 08/21/16 08/21/16 Bisacodyl [Dulcolax] 10 mg RECTAL DAILY PRN 08/21/16 08/21/16 Menthol [Biofreeze] 1 applic TOPICAL BID 08/21/16 08/21/16 Minerin Lotion 1 applic TOPICAL HS 08/21/16 08/21/16 Mometasone Furoate 1 applic TOPICAL BID 08/21/16 08/21/16 Mylanta Susp 30 ml PO Q4H PRN 08/21/16 08/21/16 Omeprazole 20 mg PO DAILY 08/21/16 08/21/16 Polyethylene Glycol 3350 [Miralax] 17 gm PO DAILY PRN 08/21/16 08/21/16 traMADol HCl [Ultram] 50 mg PO Q6H PRN 08/21/16 08/21/16 Previous Rx's Medication Instructions Recorded cloNIDine HCL [Catapres] 0.2 mg PO TID tab 02/04/15 NIFEdipine XL [Procardia XL] 30 mg PO DAILY tab.er.24 06/20/16 Allergies Allergy/AdvReac Type Severity Reaction Status Date / Time hydrocodone AdvReac Hallucinati Verified 08/21/16 18:08 ons Review of Systems ROS Other: All systems not noted in ROS Statement are negative. <Piyush Walsh - Last Filed: 08/21/16 19:43> ROS Other: All systems not noted in ROS Statement are negative. <Enrique Grissom - Last Filed: 08/21/16 20:04> ROS Statement: Those systems with pertinent positive or pertinent negative responses have been documented in the HPI. Past Medical History Past Medical History: Cancer, Hyperlipidemia, Hypertension, Osteoarthritis (OA) , Pneumonia Additional Past Medical History / Comment(s): vaginal bleeding summer 2015, D& Cx2, urinary leakage, BILATERAL BREAST CANCER with surgery and chemo/radiation, severe LYMPHEDEMA BILATERAL LEGS, venostasis-past sores on back of legs, past lower leg cellulitis, chronic anemia since 2013, UTI'S, on gout medicine for increase uric acid level but stated never had flare up of gout. morbid obesity History of Any Multi-Drug Resistant Organisms: None Reported Past Surgical History: Adenoidectomy, Breast Surgery, Tonsillectomy Additional Past Surgical History / Comment(s): partial mastectomy left breast, LUMPECTOMY RIGHT BREAST, lymph nodes removed left axillae. Past Anesthesia/Blood Transfusion Reactions: No Reported Reaction Additional Past Anesthesia/Blood Transfusion Reaction / Comment(s): Pt has received blood in past without reaction. Past Psychological History: No Psychological Hx Reported, Anxiety Additional Psychological History / Comment(s): Patient relates that her upper body has gone from a 4X to a 1X size. No experience. No travels. No animal exposures. Pt resides with her spouse and adult daughter. She uses a cane/walker to walk short distances. She has a W/C. Smoking Status: Never smoker Past Alcohol Use History: None Reported Past Drug Use History: None Reported - Past Family History Father Family Medical History: Coronary Artery Disease (CAD), Diabetes Mellitus Additional Family Medical History / Comment(s): has a porcine valve Mother Family Medical History: Chest Pain / Angina, Diabetes Mellitus Additional Family Medical History / Comment(s): weak heart <Piyush Walsh - Last Filed: 08/21/16 19:43> General Exam Limitations: no limitations General appearance: alert, in no apparent distress, obese Respiratory exam: Present: normal lung sounds bilaterally. Absent: respiratory distress, wheezes, rales, rhonchi, stridor Cardiovascular Exam: Present: regular rate, normal rhythm, normal heart sounds. Absent: systolic murmur, diastolic murmur, rubs, gallop, clicks GI/Abdominal exam: Present: soft, normal bowel sounds. Absent: distended, tenderness, guarding, rebound, rigid Neurological exam: Present: alert Skin exam: Present: warm, dry, intact, normal color. Absent: rash <Piyush Walsh - Last Filed: 08/21/16 19:43> Course <iPyush Walsh - Last Filed: 08/21/16 19:43> <Enrique Grissom - Last Filed: 08/21/16 20:04> Vital Signs 08/21/16 17:30 Temperature 97.8 F Pulse Rate 96 Respiratory 18 Rate Blood Pressure 158/67 O2 Sat by Pulse 100 Oximetry - Reevaluation(s) Reevaluation #1: 08/21/16 20:02 Unable to obtain access at this time despite multiple nurses attempts and RETURNED CASE INSPECTOR attempt. Patient is hesitant to have PICC line done however will likely have it done tomorrow if they are unable to find another IV site. Patient refuses central line placement. Patient not having active vaginal bleeding at this time. Patient has been dealing with this problem for a couple of years at this time. Patient has had multiple evaluations for this including [facility]. Case was discussed in detail with Dr. Watson, who will admit. Patient updated. (Enrique Grissom) Medical Decision Making - Lab Data Result diagrams: 08/21/16 18:10 <Piyush Walsh - Last Filed: 08/21/16 19:43> - Lab Data Result diagrams: 08/21/16 18:10 <Enrique Grissom - Last Filed: 08/21/16 20:04> - Lab Data Lab Results 08/21/16 Range/Units 18:10 WBC 5.3 (3.8-10.6) k/uL RBC 2.60 L (3.80-5.40) m/uL Hgb 7.2 L (11.4-16.0) gm/dL Hct 23.0 L (34.0-46.0) % MCV 88.3 (80.0-100.0) fL MCH 27.5 (25.0-35.0) pg MCHC 31.2 (31.0-37.0) g/dL RDW 16.3 H (11.5-15.5) % Plt Count 204 (150-450) k/uL Neutrophils % 71 % Lymphocytes % 13 % Monocytes % 6 % Eosinophils % 8 % Basophils % 0 % Neutrophils # 3.7 (1.3-7.7) k/uL Lymphocytes # 0.7 L (1.0-4.8) k/uL Monocytes # 0.3 (0-1.0) k/uL Eosinophils # 0.4 (0-0.7) k/uL Basophils # 0.0 (0-0.2) k/uL Hypochromasia Marked Poikilocytosis Slight Anisocytosis Slight Disposition <Piyush Walsh - Last Filed: 08/21/16 19:43> <Enrique Grissom - Last Filed: 08/21/16 20:04> Clinical Impression: Vaginal bleeding, Anemia Disposition: ADMITTED IP TO THIS [facility] Condition: Fair Referrals: Chris Lassiter MD [Primary Care Provider] - 1-2 days
[2016-08-21 20:03] LABS: Anion Gap 9 mmol/L; Blood Urea Nitrogen 21 mg/dL (7-17); Calcium 9.5 mg/dL (8.4-10.2); Carbon Dioxide 21 mmol/L (22-30); Chloride 108 mmol/L (98-107); Glucose 112 mg/dL (74-99); Non-African American GFR(MDRD) 50 (>60 ml/min/1.73 sqM); Potassium 3.9 mmol/L (3.5-5.1); Sodium 138 mmol/L (137-145)
[2016-08-21] MEDS ORDERED: ALPRAZolam 0.25 MG TAB PO STA (20:13)
[2016-08-21] MEDS ORDERED: LEVOFLOXACIN 750MG-D5W PMX 750 MG in DEXTROSE/WATER 1 150ML.BAG IVPB STA (20:14)
[2016-08-22] MEDS: ALPRAZolam 0.25 MG TAB PO PRN ×2 (07:41→15:53)
[2016-08-22 07:44] VITALS: RESP 16
[2016-08-22] MEDS ORDERED: BISACODYL 10 MG SUPP RECTAL PRN (10:02)
[2016-08-22] MEDS ORDERED: MAG HYDROX/AL HYDROX/SIMETH 30 ML CUP PO PRN (10:02)
[2016-08-22] MEDS ORDERED: POLYETHYLENE GLYCOL 3350 17 GM POWD.PACK PO PRN (10:02)
[2016-08-22] MEDS ORDERED: traMADol 50 MG TAB PO PRN (10:02)
[2016-08-22] MEDS ORDERED: ACETAMINOPHEN TAB 325 MG TAB PO PRN (10:02)
--- NOTE | 2016-08-22 11:35 | HP ---
DATE OF ADMISSION: This dictation is both H&P and Discharge Summary. Patient is a 70-year-old was sent in here from [facility] because of her hemoglobin dropped to 6.2. Here hemoglobin is 7.2. Patient has vaginal bleed. Patient was actively bleeding yesterday because of which we will go ahead and transfuse her. Patient has chronic vaginal bleed, was extensively evaluated in multiple hospitals in the past. Initially evaluated here and then [facility] and [facility]. All of these hospitals deemed that she is surgically high risk and no surgical intervention was done. Etiology of vaginal bleed is unknown at this time and patient is morbidly obese with multiple bullous lesions in bilateral legs without any cellulitis or infection which will need local wound care. Patient will need close followup with Infectious Disease and wound care as an outpatient. Patient received a Uribna catheter here which will be discontinued and will go ahead and get a PICC line for her as no one is able to access her and PICC line can stay until 3 months with good local care with monitoring for any infection. Patient will be discharged, as she has frequent admissions more often than a month. I believe it is okay to leave the PICC line and patient denied any fever, chills, nausea, vomiting. REVIEW OF SYSTEMS: CONSTITUTIONAL: No fever, no malaise, no fatigue. HEENT: No recent visual problems or hearing problems. Denied any sore throat. CARDIOVASCULAR: No chest pain, orthopnea, PND, no palpitations, no syncope. PULMONARY: No shortness of breath, no cough, no hemoptysis. GASTROINTESTINAL: No diarrhea, no nausea, no vomiting, no abdominal pain. Normoactive bowel sounds. NEUROLOGICAL: No headaches, no weakness, no numbness. HEMATOLOGICAL: Denies any bleeding or petechiae. GENITOURINARY: As described in HPI. MUSCULOSKELETAL/RHEUMATOLOGICAL: Denies any joint pain, swelling, or any muscle pain. ENDOCRINE: Denies any polyuria or polydipsia. The rest of the 14 point review of systems is negative. Home medications include: 1. Ferrous sulfate. 2. Cyanocobalamin. 3. Megace. Patient is on Megace basically for her vaginal bleed. 4. Alprazolam. 5. Acetaminophen. 6. Bisacodyl. 7. Menthol. 8. Mometasone. 9. Mylanta. 10. Omeprazole. 11. Polyethylene glycol. 12. Tramadol. 13. Clonidine. 14. Nifedipine. My suspicion is low that she will require clonidine, but anyways I do not have enough time to titrate this medication because of which I am not discontinuing this medication. This can be down-titrated as possible in rehabilitation facility by Dr. Lassiter. Past medical history is significant for vaginal bleeding, severe lymphedema, morbid obesity, hypertension, osteoarthritis, hyperlipidemia, adenoidectomy, breast cancer surgery, tonsillectomy. SOCIAL HISTORY: Denied any smoking, alcohol abuse or any drug abuse. FAMILY HISTORY: Father had coronary artery disease and diabetes mellitus. Mother had chest pain, angina and diabetes mellitus. PHYSICAL EXAMINATION: VITAL SIGNS: Temperature 98.0, pulse of 104, it was 95 mostly 90s and 80s, because of that other reason, I am not discontinuing her clonidine, respiratory rate of 16, blood pressure is 141/62, saturating at 98% on room air. GENERAL: Morbidly obese. HEENT: Pupils are round and equally reacting to light. EOMI. No scleral icterus. No conjunctival pallor. Normocephalic, atraumatic. No pharyngeal erythema. No thyromegaly. CARDIOVASCULAR: S1 and S2 present. No murmurs, rubs, or gallops. PULMONARY: Chest is clear to auscultation, no wheezing or crackles. ABDOMEN: Soft, nontender, nondistended, normoactive bowel sounds. No palpable organomegaly. MUSCULOSKELETAL: No joint swelling or deformity. EXTREMITIES: No cyanosis, clubbing, or pedal edema. NEUROLOGICAL: Gross neurological examination did not reveal any focal deficits. DERMATOLOGIC: Bullous lesions as mentioned above. Does not appear to be infected. Patient has a Urbina catheter which will be removed. Patient looks pale in general. LABORATORY DATA: CBC and BMP are abnormal for low hemoglobin of 7.2, BUN and creatinine of 21 and 1.08. ASSESSMENT AND PLAN: 1. Acute blood loss anemia with active vaginal bleeding, which resolved at this point of time because of which will go ahead and transfuse her 1 unit of blood and patient will be discharged to subacute rehabilitation today after transfusion. PICC line can stay for 3 months. 2. Mild renal failure, acute expected to improve with blood transfusion. 3. Morbid obesity. 4. Essential hypertension for which I will go ahead and continue her present medications. Please refer to my depart summary for the details of discharge medications and patient will follow with Dr. Lassiter in 1 to 2 days in subacute rehabilitation facility. Patient will need local wound care and patient will need to follow up with ID as well. At this point of time, patient's legs do not appear to be infected. RAMIN
[2016-08-22] MEDS ORDERED: FERROUS SULFATE 325 MG TAB PO SCH (13:00)
--- NOTE | 2016-08-22 14:06 | CDI ---
In responding to this query, please exercise your independent professional judgment. The [facility] Coding Staff and Clinical Documentation Specialists appreciate your assistance in clarifying documentation, maintaining compliance with coding guidelines, accurately documenting patients condition and capturing severity of illness. The fact that a question is asked does not imply that any particular answer is desired or expected. Communication forms are a method of clarifying documentation and are not made part of the Legal Health Record. Thank you in advance for your clarification. Last Revision, February 2015 Angel Klein [address] [facility] [place] [address] Documentation Clarification Form Date: 08/22/2016 2:01:00 PM From: Deirdre Reyes Admit Date: 08/21/2016 7:53:00 PM Patient Name: Ivania Anderson Visit Number: [id number] Dr. Holli Joel Patient presents with a BUN/CR/GFR of: 21/1.50 History/Risk Factors: Hypertension Morbid Obesity Vaginal bleeding Clinical Indicators: see labs noted above 'Mild renal failure' documented in the H&P on 08/22 Treatment: Blood transfusion In order to capture the severity of condition, please clarify if the condition signifies: Acute renal failure Acute on chronic renal failure Chronic kidney disease (CKD) and please stage Stage 1 GFR >90 Stage 2 GFR 60-89 Stage 3 GFR 30-59 Stage 4 GFR 15-29 Unable to determine Other, specify Please document in your progress notes and discharge summary in order to capture severity of illness and risk of mortality. Include clinical findings that support your diagnosis. FYI: Press F11 to launch patient chart. ___x__ Place X here if this finding has no clinical significance, is not applicable or if you are not able to provide any additional documentation. No CKD. MTDD
[2016-08-22 15:07] VITALS: BP 157/68; PULSE 101; TEMP 98.3
[2016-08-22] MEDS ORDERED: NON-FORMULARY DRUG (Cranberry Conc/C/Bacill Coag [Cranberry Tablet] 1 TAB) PO SCH (21:00)
[2016-08-22] MEDS ORDERED: METHYL SALICYLATE/MENTHOL CREAM 5 OZ TOPICAL SCH (21:00)
[2016-08-22] MEDS ORDERED: CYANOCOBALAMIN 500 MCG TAB PO SCH (21:00)
[2016-08-22] MEDS ORDERED: MEGESTROL 40 MG TAB PO SCH (21:00)
[2016-08-22] MEDS ORDERED: TRIAMCINOLONE ACET 0.1% OINTMENT 15 GM TUBE TOPICAL SCH (21:00)
[2016-08-23] MEDS ORDERED: PANTOPRAZOLE 40 MG TABLET PO SCH (07:30)
[2016-08-23] MEDS ORDERED: NIFEdipine XL 30 MG TAB.ER.24 PO SCH (09:00)
--- NOTE | 2016-08-25 09:34 | IR ---
EXAMINATION TYPE: IR cvc insert >=5 years DATE OF EXAM: 08/22/2016 10:34 AM COMPARISON: NONE CLINICAL HISTORY: Anemia Needs long-term intravenous access for treatment, transfusion. PROCEDURE: After informed consent, the skin overlying the upper extremity vein was localized with ultrasound and noted to be compressible and patent. An ultrasound image was obtained and submitted on the patient' s chart. The overlying skin was prepped and draped and Lidocaine was used for local anesthesia. A s kin dm was made with a scalpel. Access was gained to the vein under ultrasound guidance with a 21 gauge needle and a 0.018 inch wire was advanced. Access site was dilated with Peel-Away sheath and c atheter tailored to the appropriate length and advanced such that the distal tip is at the cavoatrial junction. Spot image was obtained verifying placement. Catheter was fixed to the skin with suture and a sterile dressing was placed following hemostasis. Catheter was aspirated and flushed with sali ne. Patient was discharged in stable condition without complication. Maximal barrier technique is ut ilized. Ultrasound image is documented on the chart. Ultrasound used with sterile technique. Fluoro time and fluoroscopic images submitted to document procedure: 203 intraoperative C-arm images, 0.3 minutes fluoroscopy time IMPRESSION: STATUS POST ULTRASOUND AND FLUOROSCOPIC GUIDED PICC LINE PLACEMENT, READY FOR USE. THIS PROCEDURE WAS PERFORMED BY THE UNDERSIGNED.
== END 2016-08-22 18:19 | DRG 812 ==
LOC: EC 17:28 → 5MS5E 19:53
PROVIDERS: ADMIT Internal Medicine; ATTEND Internal Medicine
PROC: 30233N1 Transfusion of Nonautologous Red Blood Cells into Peripheral Vein, Percutaneous Approach (ICD-10-PCS; principal; 2016-08-21)
PROC: 02HV33Z Insertion of Infusion Device into Superior Vena Cava, Percutaneous Approach (ICD-10-PCS; 2016-08-22 09:50)
PROC: B548ZZA Ultrasonography of Superior Vena Cava, Guidance (ICD-10-PCS; 2016-08-22 09:50)
DX: D62 Acute posthemorrhagic anemia (principal); N17.9 Acute kidney failure, unspecified; E66.01 Morbid (severe) obesity due to excess calories; I10 Essential (primary) hypertension; E78.5 Hyperlipidemia, unspecified; N93.9 Abnormal uterine and vaginal bleeding, unspecified; I89.0 Lymphedema, not elsewhere classified; M10.9 Gout, unspecified; M19.91 Primary osteoarthritis, unspecified site; Z85.3 Personal history of malignant neoplasm of breast; Z90.13 Acquired absence of bilateral breasts and nipples; Z92.21 Personal history of antineoplastic chemotherapy; Z92.3 Personal history of irradiation; Z79.899 Other long term (current) drug therapy
CPT/HCPCS: 36415; 36569; 76937; 77001; 80048; 85025; 86850; 86900; 86901; 86920; 99285

== ENCOUNTER 2016-09-04 08:47 | Emergency (ER) | payer MEDICARE ==
[2016-09-04] MEDS ORDERED: SODIUM CHLORIDE 0.9% 1,000 ML IV STA (08:56)
[2016-09-04 09:20] LABS: Anisocytosis Slight; Basophils % (A) 0 %; CH 26.9; CHCM 30.4; Eosinophils # (A) 0.5 k/uL (0-0.7); Eosinophils % (A) 8 %; HDW 4.41; Hypochromasia Marked; Luc # (Auto) 0.04; Luc % (Auto) 1; Lymphocytes # (A) 0.5 k/uL (1.0-4.8); Lymphocytes % (A) 8 %; MCH 28.2 pg (25.0-35.0); MCHC 31.7 g/dL (31.0-37.0); MCV 89.1 fL (80.0-100.0); Mean Platelet Volume 6.8; Monocytes # (A) 0.3 k/uL (0-1.0); Monocytes % (A) 5 %; Neutrophils # (A) 4.8 k/uL (1.3-7.7); Neutrophils % (A) 79 %; Poikilocytosis Moderate; RBC 1.87 m/uL (3.80-5.40); RDW 16.6 % (11.5-15.5); WBC 6.1 k/uL (3.8-10.6); WBC (Perox) 5.39
[2016-09-04] MEDS ORDERED: MORPHINE SULFATE 4 MG/ML SYRINGE IV PRN (09:24)
[2016-09-04] MEDS ORDERED: NALOXONE 0.4 MG/ML 1 ML VIAL IV PRN (09:24)
--- NOTE | 2016-09-04 09:24 | ED ---
General Adult HPI - General Chief complaint: Vaginal Bleeding Stated complaint: Abnormal Labs Time Seen by Provider: 09/04/16 08:48 Source: EMS, RN notes reviewed, old records reviewed Mode of arrival: EMS Limitations: no limitations - History of Present Illness Initial comments: This is a 71-year-old female ER for evaluation. Patient's a presents for evaluation of severe bleeding. Anemia. Patient's poor historian secondary to weakness. Morbid obesity. Patient has significant bleeding from vaginal area. Patient currently not on blood thinning medication. - Related Data Home Medications Medication Instructions Recorded Confirmed Cranberry Conc/C/Bacill Coag 1 tab PO HS 04/26/14 08/27/16 [Cranberry Tablet] Ferrous Sulfate [Iron (65 MG 325 mg PO QID 07/04/14 08/27/16 Elemental)] Cyanocobalamin [Vitamin B-12] 500 mcg PO HS 01/27/15 08/27/16 Megestrol [Megace] 80 mg PO BID 05/18/16 08/27/16 ALPRAZolam [Xanax] 0.25 mg PO TID PRN 08/21/16 08/27/16 Acetaminophen Tab [Tylenol] 650 mg PO Q4H PRN 08/21/16 08/27/16 Bisacodyl [Dulcolax] 10 mg RECTAL DAILY PRN 08/21/16 08/27/16 Menthol [Biofreeze] 1 applic TOPICAL BID 08/21/16 08/27/16 Minerin Lotion 1 applic TOPICAL HS 08/21/16 08/27/16 Mometasone Furoate 1 applic TOPICAL BID 08/21/16 08/27/16 Mylanta Susp 30 ml PO Q4H PRN 08/21/16 08/27/16 Omeprazole 20 mg PO DAILY 08/21/16 08/27/16 Polyethylene Glycol 3350 [Miralax] 17 gm PO DAILY PRN 08/21/16 08/27/16 traMADol HCl [Ultram] 50 mg PO Q6H PRN 08/21/16 08/27/16 Previous Rx's Medication Instructions Recorded cloNIDine HCL [Catapres] 0.2 mg PO TID tab 02/04/15 NIFEdipine XL [Procardia XL] 30 mg PO DAILY tab.er.24 06/20/16 Allergies Allergy/AdvReac Type Severity Reaction Status Date / Time hydrocodone AdvReac Hallucinati Verified 09/04/16 09:00 ons Review of Systems ROS Statement: Those systems with pertinent positive or pertinent negative responses have been documented in the HPI. ROS Other: All systems not noted in ROS Statement are negative. Past Medical History Past Medical History: Cancer, Hyperlipidemia, Hypertension, Osteoarthritis (OA) , Pneumonia Additional Past Medical History / Comment(s): REG PERIODS CEASED IN 1999 BUT IN 2015 STARTED TO HAVE INTERMITTENT VAGINAL BLEEDING HAD D&Cx2-DID'NT HELP. SAW DRS AT [facility]."I WAS TOLD NOT A CANDIDATE FOR HYSTERECTOMY OR UTERINE ABLATION ,PT STATED "WAS CHECKED FOR CANCER-NEG" urinary leakage, BILATERAL BREAST CANCER with surgery and chemo/radiation, severe LYMPHEDEMA BILATERAL LEGS, venostasis-past sores on back of legs, past lower leg cellulitis , chronic anemia since 2013, UTI'S, on gout medicine for increase uric acid level but stated never had flare up of gout. morbid obesity,constipation. [facility]-hx of ckd stage 2 , History of Any Multi-Drug Resistant Organisms: None Reported Past Surgical History: Adenoidectomy, Breast Surgery, Tonsillectomy Additional Past Surgical History / Comment(s): partial mastectomy left breast, LUMPECTOMY RIGHT BREAST, lymph nodes removed left axillae. Past Anesthesia/Blood Transfusion Reactions: No Reported Reaction Additional Past Anesthesia/Blood Transfusion Reaction / Comment(s): Pt has received blood in past without reaction. Past Psychological History: No Psychological Hx Reported, Anxiety Additional Psychological History / Comment(s): currently at [facility]( before that was living with spouse and daughter), PT USES [employer] W/[employer]. No experience. No travels. No animal exposures. Smoking Status: Never smoker Past Alcohol Use History: None Reported Past Drug Use History: None Reported - Past Family History Father Family Medical History: Coronary Artery Disease (CAD), Diabetes Mellitus Additional Family Medical History / Comment(s): has a porcine valve Mother Family Medical History: Chest Pain / Angina, Diabetes Mellitus Additional Family Medical History / Comment(s): weak heart General Exam Limitations: no limitations General appearance: alert, anxious, in distress, obese Head exam: Present: atraumatic, normocephalic, normal inspection Eye exam: Present: normal appearance, PERRL, EOMI. Absent: scleral icterus, conjunctival injection, periorbital swelling ENT exam: Present: normal exam, mucous membranes moist Neck exam: Present: normal inspection. Absent: tenderness, meningismus, lymphadenopathy Respiratory exam: Present: normal lung sounds bilaterally. Absent: respiratory distress, wheezes, rales, rhonchi, stridor Cardiovascular Exam: Present: regular rate, normal rhythm, normal heart sounds. Absent: systolic murmur, diastolic murmur, rubs, gallop, clicks GI/Abdominal exam: Present: soft, normal bowel sounds. Absent: distended, tenderness, guarding, rebound, rigid External exam: Absent: normal external exam (Significant bleeding vaginally) Extremities exam: Present: normal inspection, full ROM, normal capillary refill. Absent: tenderness, pedal edema, joint swelling, calf tenderness Back exam: Present: normal inspection Neurological exam: Present: alert, oriented X3, CN II-XII intact Psychiatric exam: Present: normal affect, normal mood Skin exam: Present: warm, dry, intact, normal color. Absent: rash Course Vital Signs 09/04/16 08:56 Temperature 97.1 F L Pulse Rate 91 Respiratory 18 Rate Blood Pressure 118/60 O2 Sat by Pulse 100 Oximetry - Reevaluation(s) Reevaluation #1: 09/04/16 09:23 Medical record and prior [employer] consults are thoroughly reviewed Medical Decision Making - Medical Decision Making 71 female year with significant vaginal bleeding, severe anemia symptomatic anemia with hemoglobin round 3, patient will be admitted for transfusion, patient is been deemed to not be surgical candidate. Patient will be admitted for monitoring of hemodynamic status Critical Care Time Critical Care Time: Yes Total Critical Care Time: 31 Disposition Clinical Impression: Anemia, Post-menopausal bleeding, Morbid obesity, Debilitated patient, Vaginal bleeding Disposition: ADMITTED IP TO THIS HOSP Condition: Critical Referrals: Chris Lassiter MD [Primary Care Provider] - 1-2 days
[2016-09-04 09:34] LABS: Calcium 9.2 mg/dL (8.4-10.2); Potassium 4.2 mmol/L (3.5-5.1); Total Bilirubin 0.6 mg/dL (0.2-1.3); Total Protein 5.1 g/dL (6.3-8.2)
[2016-09-04 09:35] LABS: HCT 16.6 % (34.0-46.0); HGB 5.3 gm/dL (11.4-16.0)
[2016-09-04] MEDS ORDERED: ONDANSETRON 4 MG/2 ML VIAL IVP STA (09:38)
[2016-09-04 09:42] LABS: Creatine Kinase <20 U/L (30-135)
[2016-09-04 09:56] LABS: Creatine Kinase MB 0.6 ng/mL (0.0-2.4); Troponin I <0.012 ng/mL (0.000-0.034)
[2016-09-04 11:06] LABS: Prothrombin Time 10.6 sec (9.0-12.0)
[2016-09-04 12:00] LABS: Partial Thromboplastin Time 19.7 sec (22.0-30.0)
[2016-09-04] MEDS ORDERED: ALPRAZolam 0.25 MG TAB PO STA (14:43)
--- NOTE | 2016-09-04 16:16 | CONS ---
DATE OF CONSULTATION: REASON FOR CONSULTATION: Possibility of admission. Patient is a 71-year-old female with a history of vaginal bleeding in the past. Patient was having on and off vaginal bleeding; it was severe a few days ago. Patient still has a little bit of bleeding. Patient is an obese female. Patient was extensively evaluated in the past for her vaginal bleeding. Patient is supposed to get hysterectomy; was evaluated in multiple hospitals, including [facility], [facility], and all the gynecologists in this hospital. They deemed patient not a surgical candidate. Patient was having some generalized weakness and lightheadedness. Patient was started on 1 unit of blood transfusion. Patient's hemoglobin was found to be 5.3. I discussed extensively with the patient; patient is not willing to get admitted. Patient's blood pressure is on the low-normal side. Patient is on 0.2 mg of clonidine t.i.d., which we can probably cut down. That will help her dizziness. Patient will need 3 more units of transfusion. I did discuss with the patient and ER physician. Patient denied any fever, chills. Patient denied any nausea, vomiting. No further intervention was planned in the past and patient is not a candidate for surgery and patient does not want to stay here. Initially patient was admitted to ICU because of the level of anemia, but subsequently I discussed with the patient and the ER physician as per the patient's wishes. Patient will be transfused 2 more units, total of 3 units, bringing her hemoglobin up to 8, and I recommended discharge back to [facility]. Her bleeding actually slowed down quite a bit for the last few days. Regarding her medication reconciliation, I recommended cutting down clonidine to ( ) mg t.i.d. Probably taper it completely, discontinue. REVIEW OF SYSTEMS: CONSTITUTIONAL: No fever, no malaise, no fatigue. HEENT: No recent visual problems or hearing problems. Denied any sore throat. CARDIOVASCULAR: No chest pain, orthopnea, PND, no palpitations, no syncope. PULMONARY: No shortness of breath, no cough, no hemoptysis. GASTROINTESTINAL: No diarrhea, no nausea, no vomiting, no abdominal pain. Normoactive bowel sounds. NEUROLOGICAL: No headaches, no weakness, no numbness. HEMATOLOGICAL: Denies any bleeding or petechiae. GENITOURINARY: As described in HPI. MUSCULOSKELETAL/RHEUMATOLOGICAL: Denies any joint pain, swelling, or any muscle pain. ENDOCRINE: Denies any polyuria or polydipsia. The rest of the 14 point review of systems is negative. Home medications include: 1. Cranberry juice. 2. Ferrous sulfate. 3. Cyanocobalamin. 4. Megestrol. 5. Alprazolam. 6. Acetaminophen. 7. Bisacodyl. 8. Menthol. 9. Omeprazole. 10. Polyethylene glycol. 11. Tramadol. 12. Nifedipine. 13. Clonidine. ALLERGIES: HYDROCODONE. PAST MEDICAL HISTORY: 1. Hyperlipidemia. 2. Hypertension. 3. Osteoarthritis. 4. Patient had vaginal bleed in the past that was extensively evaluated in the past. 5. Severe lymphedema. 6. Adenoidectomy. 7. Breast surgery. 8. Tonsillectomy. 9. Prior partial mastectomy. 10. Left breast lumpectomy in the past. Patient currently lives in [facility]. Denied any smoking, alcohol abuse or any drug abuse. FAMILY HISTORY: Father had diabetes mellitus, coronary artery disease. Mother had chest pain, angina and diabetes mellitus. PHYSICAL EXAMINATION: Temperature 97.5, pulse of 77, respiratory rate of 18. Blood pressure is 100/57. Saturating at 100% on 2 L of oxygen by nasal cannula. GENERAL: Patient looks pale. HEENT: Patient has conjunctival pallor. Pupils round and equally reacting to light. CARDIOVASCULAR: S1 and S2 present. No murmurs, rubs, or gallops. PULMONARY: Chest is clear to auscultation, no wheezing or crackles. ABDOMEN: Soft, nontender, nondistended, normoactive bowel sounds. No palpable organomegaly. MUSCULOSKELETAL: No joint swelling or deformity. EXTREMITIES: No cyanosis, clubbing, or pedal edema. NEUROLOGICAL: Gross neurological examination did not reveal any focal deficits. SKIN: No rashes. LABORATORY DATA: CBC, CMP are abnormal for low hemoglobin of 5.7. Patient is mildly hyperchloremic because of IV fluid she is receiving. Creatinine of 1.1, BUN of 25, expected to improve with blood transfusion and cutting down the clonidine. ASSESSMENT AND PLAN: 1. Acute blood loss anemia from vaginal bleed. Management as mentioned above. I recommend 2 more units of transfusion and discharge from ER back to [facility]. Patient will not benefit from inpatient hospitalization. Same thing was discussed with the ER physician and the patient. 2. Mild renal failure, expected to improve with blood transfusion and cutting down the clonidine. 3. Essential hypertension. I recommend cutting down the clonidine to half and maybe discontinue down the line. 4. Morbid obesity. Thank for letting me participate in the patient's care. As per the patient's wishes, patient does not want to be admitted, which is reasonable, I believe. Patient is on Megace, basically for her vaginal bleed.
[2016-09-04 16:24] VITALS: RESP 18
[2016-09-04 18:15] VITALS: BP 149/64; PULSE 101; TEMP 98.3
[2016-09-05] MEDS ORDERED: PANTOPRAZOLE 40 MG/10 ML VIAL IV SCH (09:00)
== END 2016-09-04 18:43 | disposition home or self-care (01) ==
LOC: EC 08:47 → UNDOADMIN 09:24 → 6ICU 09:24 → EC 18:43
DX: D62 Acute posthemorrhagic anemia (principal); N95.0 Postmenopausal bleeding; R53.81 Other malaise; F41.9 Anxiety disorder, unspecified; E66.01 Morbid (severe) obesity due to excess calories; I12.9 Hypertensive chronic kidney disease with stage 1 through stage 4 chronic kidney disease, or unspecified chronic kidney disease; N18.2 Chronic kidney disease, stage 2 (mild); Z79.899 Other long term (current) drug therapy; Z68.43 Body mass index [BMI] 50.0-59.9, adult
CPT/HCPCS: 99285; 96374; 36430; 36415; 86900; 86901; 80053; 82550; 82553; 83735; 84484; 85025; 85610; 85730; 86850; 86920; P9016; J2405; 93005

== ENCOUNTER 2016-10-11 02:51 | Emergency (ER) | payer MEDICARE ==
[2016-10-11 02:56] VITALS: RESP 18
[2016-10-11 03:47] LABS: Anisocytosis Slight; CHCM 30.7; Hypochromasia Marked; Poikilocytosis Moderate
--- NOTE | 2016-10-11 03:49 | ED ---
Recheck HPI - General Chief Complaint: Recheck/Abnormal Lab/Rx Stated Complaint: Abnormal Labs Time Seen by Provider: 10/11/16 03:00 Source: patient, EMS Mode of arrival: EMS Limitations: no limitations - History of Present Illness Initial Comments: This patient is a 71-year-old woman who is sent from the retirement to be evaluated for low hemoglobin. Patient reportedly has been having some chronic vaginal bleeding, and she states that her blood counts were rechecked tonight around 10 PM. They were called with report that the hemoglobin was under 6. The patient has been told that she is not a candidate for hysterectomy due to her morbid obesity and the fact that she is a poor surgical candidate. The patient is currently denying any symptoms of anemia. She is not having shortness of breath, chest pain, palpitations, lightheadedness, or syncope, diaphoresis. Denies any abdominal pain. No change in bowel movements or urination. MD Complaint: abnormal lab Onset/Timin -: hour(s) Returns Today for: Called Because of Abnormal Lab/Test Symptoms Since Prior Visit: no new symptoms Associated Symptoms: none - Related Data Home Medications Medication Instructions Recorded Confirmed Cranberry Conc/C/Bacill Coag 1 tab PO HS 04/26/14 10/11/16 [Cranberry Tablet] Ferrous Sulfate [Iron (65 MG 325 mg PO QID 07/04/14 10/11/16 Elemental)] Cyanocobalamin [Vitamin B-12] 500 mcg PO HS 01/27/15 10/11/16 Megestrol [Megace] 80 mg PO BID 05/18/16 10/11/16 ALPRAZolam [Xanax] 0.25 mg PO TID PRN 08/21/16 10/11/16 Bisacodyl [Dulcolax] 10 mg RECTAL DAILY PRN 08/21/16 10/11/16 Menthol [Biofreeze] 1 applic TOPICAL BID 08/21/16 10/11/16 Minerin Lotion 1 applic TOPICAL HS 08/21/16 10/11/16 Mometasone Furoate 1 applic TOPICAL BID 08/21/16 10/11/16 Mylanta Susp 30 ml PO Q4H PRN 08/21/16 10/11/16 Omeprazole 20 mg PO DAILY 08/21/16 10/11/16 Polyethylene Glycol 3350 [Miralax] 17 gm PO DAILY PRN 08/21/16 10/11/16 traMADol HCl [Ultram] 50 mg PO Q6H PRN 08/21/16 10/11/16 Amino Acids/Protein Hydrolys 30 ml PO BID 09/04/16 10/11/16 [Pro-Stat Supplement] cloNIDine HCL [Catapres] 0.2 mg PO Q8H 09/04/16 10/11/16 Sulfamethox-Tmp 800-160Mg [Bactrim 1 tab PO DAILY 09/26/16 10/11/16 DS 800-160 mg] Allergies Allergy/AdvReac Type Severity Reaction Status Date / Time hydrocodone AdvReac Hallucinati Verified 10/02/16 10:21 ons Review of Systems ROS Statement: Those systems with pertinent positive or pertinent negative responses have been documented in the HPI. ROS Other: All systems not noted in ROS Statement are negative. Constitutional: Denies: fever, chills, weakness Respiratory: Denies: cough, dyspnea Cardiovascular: Denies: chest pain, palpitations, syncope Gastrointestinal: Denies: abdominal pain, vomiting, diarrhea Genitourinary: Reports: abnormal menses. Denies: dysuria Musculoskeletal: Denies: back pain Skin: Denies: rash Past Medical History Past Medical History: Cancer, Hyperlipidemia, Hypertension, Osteoarthritis (OA) , Pneumonia Additional Past Medical History / Comment(s): Pt recently admitted 08/21/16 with acute blood loss anemia from vaginal bleed. Other hx: REG PERIODS CEASED IN 1999 BUT IN 2016 STARTED TO HAVE INTERMITTENT VAGINAL BLEEDING HAD D&Cx2-DID' NT HELP. SAW DRS AT [facility]."I WAS TOLD NOT A CANDIDATE FOR HYSTERECTOMY OR UTERINE ABLATION ,PT STATED "WAS CHECKED FOR CANCER-NEG" urinary leakage, BILATERAL BREAST CANCER with surgery and chemo/radiation, severe LYMPHEDEMA BILATERAL LEGS, venostasis-past sores on back of legs, past lower leg cellulitis, chronic anemia since 2013, UTI'S, on gout medicine for increase uric acid level but stated never had flare up of gout. morbid obesity, constipation. per [employer] paperwork-hx of ckd stage 2 , History of Any Multi-Drug Resistant Organisms: None Reported Past Surgical History: Adenoidectomy, Breast Surgery, Tonsillectomy Additional Past Surgical History / Comment(s): 08/25/16 PICC line, partial mastectomy left breast, LUMPECTOMY RIGHT BREAST, lymph nodes removed left axillae. Past Anesthesia/Blood Transfusion Reactions: No Reported Reaction Additional Past Anesthesia/Blood Transfusion Reaction / Comment(s): Pt has received blood in past without reaction. Past Psychological History: No Psychological Hx Reported, Anxiety Smoking Status: Never smoker - Past Family History Father Family Medical History: Coronary Artery Disease (CAD), Diabetes Mellitus Additional Family Medical History / Comment(s): has a porcine valve Mother Family Medical History: Chest Pain / Angina, Diabetes Mellitus Additional Family Medical History / Comment(s): weak heart General Exam Limitations: no limitations General appearance: alert, in no apparent distress, obese Respiratory exam: Present: normal lung sounds bilaterally. Absent: respiratory distress, wheezes, rales, rhonchi, stridor Cardiovascular Exam: Present: regular rate, normal rhythm, normal heart sounds. Absent: systolic murmur, diastolic murmur, rubs, gallop GI/Abdominal exam: Present: soft. Absent: distended, tenderness, guarding, rebound, mass Back exam: Absent: CVA tenderness (R), CVA tenderness (L) Neurological exam: Present: alert Skin exam: Present: warm, dry, intact, normal color. Absent: rash Course Vital Signs 10/11/16 10/11/16 10/11/16 02:52 03:38 03:40 Temperature 98.2 F Pulse Rate 98 89 89 Respiratory 18 18 18 Rate Blood Pressure 152/63 142/65 142/65 O2 Sat by Pulse 98 97 100 Oximetry 10/11/16 10/11/16 10/11/16 04:08 04:38 05:45 Temperature 97.5 F L Pulse Rate 95 90 93 Respiratory 18 18 18 Rate Blood Pressure 141/63 143/65 134/62 O2 Sat by Pulse 97 98 97 Oximetry 10/11/16 10/11/16 10/11/16 05:50 05:55 05:56 Temperature 98 F 98 F 98 F Pulse Rate 90 89 87 Respiratory 18 18 18 Rate Blood Pressure 139/69 140/63 129/60 O2 Sat by Pulse 98 99 99 Oximetry 10/11/16 10/11/16 06:13 06:15 Temperature 97.9 F 97.9 F Pulse Rate 85 85 Respiratory 18 18 Rate Blood Pressure 116/61 139/64 O2 Sat by Pulse Oximetry Medical Decision Making - Lab Data Result diagrams: 10/11/16 03:01 10/11/16 03:01 Lab Results 10/11/16 10/11/16 10/11/16 Range/Units 03:01 03:01 03:01 WBC 5.5 (3.8-10.6) k/uL RBC 1.99 L (3.80-5.40) m/uL Hgb 5.4 L* (11.4-16.0) gm/dL Hct 16.9 L* (34.0-46.0) % MCV 85.0 (80.0-100.0) fL MCH 27.3 (25.0-35.0) pg MCHC 32.1 (31.0-37.0) g/dL RDW 16.2 H (11.5-15.5) % Plt Count 216 (150-450) k/uL Hypochromasia Marked Poikilocytosis Moderate Anisocytosis Slight Sodium 132 L (137-145) mmol/L Potassium 4.0 (3.5-5.1) mmol/L Chloride 105 (98-107) mmol/L Carbon Dioxide 19 L (22-30) mmol/L Anion Gap 8 mmol/L BUN 41 H (7-17) mg/dL Creatinine 1.10 H (0.52-1.04) mg/dL Est GFR (MDRD) Af Amer 60 (>60 ml/min/1.73 sqM) Est GFR (MDRD) Non-Af 49 (>60 ml/min/1.73 sqM) Glucose 84 (74-99) mg/dL Calcium 9.1 (8.4-10.2) mg/dL Blood Type O Negative Blood Type Recheck No Antibody Screen NEGATIVE Crossmatch See Detail Spec Expiration Date 10/14/2016 - 2300 - EKG Data -: EKG Interpreted by [facility] EKG shows normal: sinus rhythm, axis (Normal), intervals (Normal), ST-T waves ( Normal) Rate: normal (Rate 97 bpm) Interpretation: other (Q waves in lead 3, suggestive possible old inferior infarct.) Disposition Clinical Impression: Anemia Disposition: HOME SELF-CARE Condition: Poor Instructions: Anemia (ED) Referrals: Chris Lassiter MD [Primary Care Provider] - 1-2 days
[2016-10-11 03:52] LABS: Calcium 9.1 mg/dL (8.4-10.2)
[2016-10-11 03:56] LABS: MCH 27.3 pg (25.0-35.0); MCHC 32.1 g/dL (31.0-37.0); Mean Platelet Volume 7.6; RBC 1.99 m/uL (3.80-5.40); RDW 16.2 % (11.5-15.5); WBC 5.5 k/uL (3.8-10.6)
[2016-10-11 04:02] LABS: HCT 16.9 % (34.0-46.0); HGB 5.4 gm/dL (11.4-16.0)
[2016-10-11 06:45] VITALS: PULSE 90
[2016-10-11 07:35] VITALS: BP 140/67; TEMP 98.5
== END 2016-10-11 08:00 | disposition home or self-care (01) ==
LOC: EC 02:51
DX: D64.9 Anemia, unspecified (principal); I10 Essential (primary) hypertension; M19.90 Unspecified osteoarthritis, unspecified site; E66.01 Morbid (severe) obesity due to excess calories; Z79.899 Other long term (current) drug therapy; Z88.5 Allergy status to narcotic agent; Z85.3 Personal history of malignant neoplasm of breast; Z87.440 Personal history of urinary (tract) infections; Z90.12 Acquired absence of left breast and nipple; Z98.890 Other specified postprocedural states; Z68.42 Body mass index [BMI] 45.0-49.9, adult
CPT/HCPCS: 36415; 86900; 86901; 80048; 85027; 86850; 86920; 99284; P9016

== ENCOUNTER 2016-12-12 18:23 | Emergency (ER) | payer MEDICARE ==
--- NOTE | 2016-12-12 18:57 | ED ---
General Adult HPI - General Chief complaint: Recheck/Abnormal Lab/Rx Stated complaint: Med reaction Time Seen by Provider: 12/12/16 18:32 Source: patient, RN/MD, RN notes reviewed, old records reviewed Mode of arrival: wheelchair Limitations: physical limitation - History of Present Illness Initial comments: This is a 71-year-old female ER for evaluation. Patient's left ear after transfusion for platelet transfusion reaction. Patient has elevated heart rate , this reaction occurred during transfusion. Patient is adamant that she go in spasms exact reaction, was originally refusing transfer to the emergency room at this time is refusing any treatment. Denies any complaints denies any chest pain denies any shortness of breath denies any abdominal pain. - Related Data Home Medications Medication Instructions Recorded Confirmed Cranberry Conc/C/Bacill Coag 1 tab PO HS 04/26/14 11/21/16 [Cranberry Tablet] Ferrous Sulfate [Iron (65 MG 325 mg PO QID 07/04/14 11/21/16 Elemental)] Cyanocobalamin [Vitamin B-12] 500 mcg PO HS 01/27/15 11/21/16 Megestrol [Megace] 80 mg PO BID 05/18/16 11/21/16 ALPRAZolam [Xanax] 0.25 mg PO TID PRN 08/21/16 11/21/16 Bisacodyl [Dulcolax] 10 mg RECTAL DAILY PRN 08/21/16 11/21/16 Menthol [Biofreeze] 1 applic TOPICAL BID 08/21/16 11/21/16 Minerin Lotion 1 applic TOPICAL HS 08/21/16 11/21/16 Mometasone Furoate 1 applic TOPICAL BID 08/21/16 11/21/16 Mylanta Susp 30 ml PO Q4H PRN 08/21/16 11/21/16 Omeprazole 20 mg PO DAILY 08/21/16 11/21/16 Polyethylene Glycol 3350 [Miralax] 17 gm PO DAILY PRN 08/21/16 11/21/16 traMADol HCl [Ultram] 50 mg PO Q6H PRN 08/21/16 11/21/16 Amino Acids/Protein Hydrolys 30 ml PO BID 09/04/16 11/21/16 [Pro-Stat Supplement] cloNIDine HCL [Catapres] 0.2 mg PO Q8H 09/04/16 11/21/16 Sulfamethox-Tmp 800-160Mg [Bactrim 1 tab PO DAILY 09/26/16 11/21/16 DS 800-160 mg] Allergies Allergy/AdvReac Type Severity Reaction Status Date / Time hydrocodone AdvReac Hallucinati Verified 12/12/16 18:40 ons Review of Systems ROS Statement: Those systems with pertinent positive or pertinent negative responses have been documented in the HPI. ROS Other: All systems not noted in ROS Statement are negative. Past Medical History Past Medical History: Cancer, Hyperlipidemia, Hypertension, Osteoarthritis (OA) , Pneumonia Additional Past Medical History / Comment(s): Pt recently admitted 08/21/16 with acute blood loss anemia from vaginal bleed. Other hx: REG PERIODS CEASED IN 1999 BUT IN 2015 STARTED TO HAVE INTERMITTENT VAGINAL BLEEDING HAD D&Cx2-DID' NT HELP. SAW DRS AT [place] AND [facility]."I WAS TOLD NOT A CANDIDATE FOR HYSTERECTOMY OR UTERINE ABLATION ,PT STATED "WAS CHECKED FOR CANCER-NEG" urinary leakage, BILATERAL BREAST CANCER with surgery and chemo/radiation, severe LYMPHEDEMA BILATERAL LEGS, venostasis-past sores on back of legs, past lower leg cellulitis, chronic anemia since 2013, UTI'S, on gout medicine for increase uric acid level but stated never had flare up of gout. morbid obesity, constipation. per [employer] paperwork-hx of ckd stage 2 , History of Any Multi-Drug Resistant Organisms: None Reported Past Surgical History: Adenoidectomy, Breast Surgery, Tonsillectomy Additional Past Surgical History / Comment(s): 08/25/16 PICC line, partial mastectomy left breast, LUMPECTOMY RIGHT BREAST, lymph nodes removed left axillae. Past Anesthesia/Blood Transfusion Reactions: No Reported Reaction Additional Past Anesthesia/Blood Transfusion Reaction / Comment(s): Pt has received blood in past without reaction. Past Psychological History: No Psychological Hx Reported, Anxiety Smoking Status: Never smoker Past Alcohol Use History: None Reported Past Drug Use History: None Reported - Past Family History Father Family Medical History: Coronary Artery Disease (CAD), Diabetes Mellitus Additional Family Medical History / Comment(s): has a porcine valve Mother Family Medical History: Chest Pain / Angina, Diabetes Mellitus Additional Family Medical History / Comment(s): weak heart General Exam Limitations: physical limitation General appearance: alert, in no apparent distress Head exam: Present: atraumatic, normocephalic, normal inspection Eye exam: Present: normal appearance, PERRL, EOMI. Absent: scleral icterus, conjunctival injection, periorbital swelling ENT exam: Present: normal exam, mucous membranes moist Neck exam: Present: normal inspection. Absent: tenderness, meningismus, lymphadenopathy Respiratory exam: Present: normal lung sounds bilaterally. Absent: respiratory distress, wheezes, rales, rhonchi, stridor Cardiovascular Exam: Present: regular rate, normal rhythm, normal heart sounds. Absent: systolic murmur, diastolic murmur, rubs, gallop, clicks GI/Abdominal exam: Present: soft, normal bowel sounds. Absent: distended, tenderness, guarding, rebound, rigid Extremities exam: Present: normal inspection, full ROM, normal capillary refill. Absent: tenderness, pedal edema, joint swelling, calf tenderness Back exam: Present: normal inspection Neurological exam: Present: alert, oriented X3, CN II-XII intact Psychiatric exam: Present: normal affect, normal mood Skin exam: Present: warm, dry, intact, normal color. Absent: rash Course Vital Signs 12/12/16 18:32 Temperature 102 F H Pulse Rate 152 H Respiratory 18 Rate Blood Pressure 158/69 O2 Sat by Pulse 95 Oximetry - Reevaluation(s) Reevaluation #1: 12/12/16 19:30 Patient refusing all treatment EKG Findings - EKG Comments: EKG Findings:: EKG shows sinus tachycardia rate 134, WV 140, QRS 80, QTC 426 Medical Decision Making - Medical Decision Making 71 female DF for evaluation and possible transfusion reaction. Patient refusing all treatment at this time. We'll respect the patient's wishes and transferred up Disposition Clinical Impression: Anemia, Transfusion reaction Disposition: HOME SELF-CARE Condition: Good Instructions: Blood Transfusion Reactions (ED) Referrals: Chris Lassiter MD [Primary Care Provider] - 1-2 days
[2016-12-12 19:45] VITALS: BP 151/61; PULSE 151; RESP 16; TEMP 98.5
== END 2016-12-12 19:58 | disposition home or self-care (01) ==
LOC: EC 18:23
DX: D64.9 Anemia, unspecified (principal); T80.89XA Other complications following infusion, transfusion and therapeutic injection, initial encounter; I10 Essential (primary) hypertension; E66.01 Morbid (severe) obesity due to excess calories; Z85.3 Personal history of malignant neoplasm of breast; Z88.5 Allergy status to narcotic agent; Z68.41 Body mass index [BMI] 40.0-44.9, adult; Z79.899 Other long term (current) drug therapy; Y84.8 Other medical procedures as the cause of abnormal reaction of the patient, or of later complication, without mention of misadventure at the time of the procedure
CPT/HCPCS: 93005; 99283

== ENCOUNTER 2017-05-27 16:07 | Emergency (ER) | payer MEDICARE, OTHER ==
[2017-05-27 16:18] VITALS: TEMP 98.5
[2017-05-27] MEDS ORDERED: SODIUM CHLORIDE 0.9% 1,000 ML IV STA (16:18)
--- NOTE | 2017-05-27 17:10 | ED ---
General Adult HPI - General Chief complaint: Altered Mental Status Stated complaint: Poss Sepsis Time Seen by Provider: 05/27/17 16:08 Source: patient, EMS, RN notes reviewed, old records reviewed Mode of arrival: EMS Limitations: no limitations - History of Present Illness Initial comments: This is a 71-year-old female to the ER for evaluation of altered mental state, rule out sepsis. Patient sent in from [facility] for evaluation. Patient sounds. No recent change in medications, she did have her [place] catheter changed today. Patient herself denies any complaints, has good recollection of today's events , she is alert and oriented no other rashes nausea got here. Denies thoughts of fever denies pain - Related Data Home Medications Medication Instructions Recorded Confirmed Ferrous Sulfate [Iron (65 MG 325 mg PO TID@0500,1300,2100 07/04/14 05/27/17 Elemental)] Megestrol [Megace] 80 mg PO BID@0700,1900 05/18/16 05/27/17 Bisacodyl [Dulcolax] 10 mg RECTAL DAILY PRN 08/21/16 05/27/17 Mometasone Furoate 1 applic TOPICAL BID 08/21/16 05/27/17 Acetaminophen Tab [Tylenol] 650 mg PO Q6H PRN 04/04/17 05/27/17 Baclofen [Lioresal] 10 mg PO BID PRN 04/04/17 05/27/17 Magnesium Oxide [Mag-Ox] 400 mg PO HS 04/04/17 05/27/17 Sennosides [Senna] 17.2 mg PO Q24H PRN 04/04/17 05/27/17 Vits A and D/White Pet/Lanolin [A 1 applic TOPICAL HS 04/04/17 05/27/17 and D Ointment] Amino Acids/Protein Hydrolys 30 ml PO W/LUNCH 05/27/17 05/27/17 [Pro-Stat Supplement] Cyanocobalamin [Vitamin B-12] 500 mcg PO HS 05/27/17 05/27/17 Ranitidine HCl 150 mg PO HS 05/27/17 05/27/17 traMADol HCl [Ultram] 50 mg PO Q6H 05/27/17 05/27/17 Previous Rx's Medication Instructions Recorded ALPRAZolam [Xanax] 0.5 mg PO Q8H PRN #20 tab 05/18/17 Ammonium Lactate Lotion 1 applic TOPICAL BID #200 gm 05/18/17 [Lac-Hydrin 12% Lotion] traMADol HCL [Ultram] 50 mg PO Q4HR PRN #10 tablet 05/18/17 Allergies Allergy/AdvReac Type Severity Reaction Status Date / Time levofloxacin [From Levaquin] Allergy Unknown Verified 05/27/17 16:40 hydrocodone AdvReac Hallucinati Verified 05/27/17 16:40 ons Review of Systems ROS Statement: Those systems with pertinent positive or pertinent negative responses have been documented in the HPI. ROS Other: All systems not noted in ROS Statement are negative. Past Medical History Past Medical History: Cancer, Hyperlipidemia, Hypertension, Osteoarthritis (OA) , Pneumonia Additional Past Medical History / Comment(s): 08/21/16 with acute blood loss anemia from vaginal bleed. Other hx: REG PERIODS CEASED IN 1999 BUT IN 2015 STARTED TO HAVE INTERMITTENT VAGINAL BLEEDING HAD D&Cx2-DID'NT HELP. SAW DRS AT [facility] AND [facility]."I WAS TOLD NOT A CANDIDATE FOR HYSTERECTOMY OR UTERINE ABLATION ,PT STATED "WAS CHECKED FOR CANCER-NEG" urinary leakage, BILATERAL BREAST CANCER with surgery and chemo/radiation, severe LYMPHEDEMA BILATERAL LEGS, venostasis-past sores on back of legs, past lower leg cellulitis , chronic anemia since 2013, UTI'S, on gout medicine for increase uric acid level but stated never had flare up of gout. morbid obesity,constipation. per [facility] paperwork-hx of ckd stage 2 , History of Any Multi-Drug Resistant Organisms: None Reported Past Surgical History: Adenoidectomy, Breast Surgery, Tonsillectomy Additional Past Surgical History / Comment(s): LUMPECTOMY RIGHT BREAST, lymph nodes removed left axillae. PICC line placed 2 months ago per pts Sh[facility], left-sided port. Past Anesthesia/Blood Transfusion Reactions: No Reported Reaction Additional Past Anesthesia/Blood Transfusion Reaction / Comment(s): Pt has received blood in past without reaction. Past Psychological History: No Psychological Hx Reported, Anxiety Smoking Status: Never smoker Past Alcohol Use History: None Reported Past Drug Use History: None Reported - Past Family History Father Family Medical History: Coronary Artery Disease (CAD), Diabetes Mellitus, Mitral Valve Prolapse (MVP) Additional Family Medical History / Comment(s): has a porcine valve Mother Family Medical History: Chest Pain / Angina, Diabetes Mellitus Additional Family Medical History / Comment(s): weak heart General Exam Limitations: no limitations General appearance: alert, in no apparent distress, obese Head exam: Present: atraumatic, normocephalic, normal inspection Eye exam: Present: normal appearance, PERRL, EOMI. Absent: scleral icterus, conjunctival injection, periorbital swelling ENT exam: Present: normal exam, mucous membranes moist Neck exam: Present: normal inspection. Absent: tenderness, meningismus, lymphadenopathy Respiratory exam: Present: normal lung sounds bilaterally. Absent: respiratory distress, wheezes, rales, rhonchi, stridor Cardiovascular Exam: Present: regular rate, normal rhythm, normal heart sounds. Absent: systolic murmur, diastolic murmur, rubs, gallop, clicks GI/Abdominal exam: Present: soft, normal bowel sounds. Absent: distended, tenderness, guarding, rebound, rigid Extremities exam: Present: normal inspection, full ROM, normal capillary refill. Absent: tenderness, pedal edema, joint swelling, calf tenderness Back exam: Present: normal inspection Neurological exam: Present: alert, oriented X3, CN II-XII intact Psychiatric exam: Present: normal affect, normal mood Skin exam: Present: warm, dry, intact, normal color. Absent: rash Course Vital Signs 05/27/17 05/27/17 16:14 17:23 Temperature 98.5 F Pulse Rate 89 92 Respiratory 18 16 Rate Blood Pressure 172/81 170/87 O2 Sat by Pulse 100 100 Oximetry - Reevaluation(s) Reevaluation #1: 05/27/17 17:09 Patient continues remain without significant complaints Reevaluation #2: 05/27/17 17:09 Patient's is at bedside states patient's mental state is baseline Reevaluation #3: 05/27/17 17:09 Speaking with metal [facility], they're concerned for possible sepsis secondary to patient's decreased appetite, not eating breakfast this morning EKG Findings - EKG Comments: EKG Findings:: EKG shows normal sinus rhythm rate of 92, [place] 146, QRS 84, QTC 400 Medical Decision Making - Medical Decision Making 71 female the ER for evaluation of possible rule out sepsis altered mental state , patient's awake alert and appropriate, chest x-ray negative labwork is normal patient can be discharged home, we'll await urine cultures - Lab Data Result diagrams: 05/27/17 16:56 05/27/17 16:56 Lab Results 05/27/17 05/27/17 05/27/17 Range/Units 16:56 16:56 16:56 WBC 7.5 (3.8-10.6) k/uL RBC 3.38 L (3.80-5.40) m/uL Hgb 8.9 L (11.4-16.0) gm/dL Hct 30.2 L (34.0-46.0) % MCV 89.1 (80.0-100.0) fL MCH 26.3 (25.0-35.0) pg MCHC 29.5 L (31.0-37.0) g/dL RDW 17.8 H (11.5-15.5) % Plt Count 440 (150-450) k/uL Neutrophils % 84 % Lymphocytes % 8 % Monocytes % 4 % Eosinophils % 3 % Basophils % 0 % Neutrophils # 6.3 (1.3-7.7) k/uL Lymphocytes # 0.6 L (1.0-4.8) k/uL Monocytes # 0.3 (0-1.0) k/uL Eosinophils # 0.2 (0-0.7) k/uL Basophils # 0.0 (0-0.2) k/uL Hypochromasia Marked Anisocytosis Slight PT (9.0-12.0) sec INR (<1.2) APTT (22.0-30.0) sec Sodium 141 (137-145) mmol/L Potassium 4.2 (3.5-5.1) mmol/L Chloride 112 H (98-107) mmol/L Carbon Dioxide 23 (22-30) mmol/L Anion Gap 6 mmol/L BUN 23 H (7-17) mg/dL Creatinine 0.70 (0.52-1.04) mg/dL Est GFR (MDRD) Af Amer >60 (>60 ml/min/1.73 sqM) Est GFR (MDRD) Non-Af >60 (>60 ml/min/1.73 sqM) Glucose 78 (74-99) mg/dL Plasma Lactic Acid [place] (0.7-2.0) mmol/L Calcium 9.1 (8.4-10.2) mg/dL Phosphorus 3.4 (2.5-4.5) mg/dL Magnesium 2.0 (1.6-2.3) mg/dL Total Bilirubin 0.2 (0.2-1.3) mg/dL AST 12 L (14-36) U/L ALT 21 (9-52) U/L Alkaline Phosphatase 104 (38-126) U/L Total Creatine Kinase <20 L (30-135) U/L CK-MB (CK-2) 0.9 (0.0-2.4) ng/mL CK-MB (CK-2) Rel Index Troponin I <0.012 (0.000-0.034) ng/mL Total Protein 4.6 L (6.3-8.2) g/dL Albumin 1.9 L (3.5-5.0) g/dL Urine Color Urine Appearance (Clear) Urine pH (5.0-8.0) Ur Specific [place] (1.001-1.035) Urine Protein (Negative) Urine Glucose (UA) (Negative) Urine Ketones (Negative) Urine Blood (Negative) Urine Nitrite (Negative) Urine Bilirubin (Negative) Urine Urobilinogen (<2.0) mg/dL Ur Leukocyte Esterase (Negative) Urine RBC (0-5) /hpf Urine WBC (0-5) /hpf Ur Squamous Epith Cells (0-4) /hpf Amorphous Sediment (None) /hpf Hyaline Casts (0-2) /lpf Urine Mucus (None) /hpf 05/27/17 05/27/17 05/27/17 Range/Units 16:56 16:56 17:55 WBC (3.8-10.6) k/uL RBC (3.80-5.40) m/uL Hgb (11.4-16.0) gm/dL Hct (34.0-46.0) % MCV (80.0-100.0) fL MCH (25.0-35.0) pg MCHC (31.0-37.0) g/dL RDW (11.5-15.5) % Plt Count (150-450) k/uL Neutrophils % % Lymphocytes % % Monocytes % % Eosinophils % % Basophils % % Neutrophils # (1.3-7.7) k/uL Lymphocytes # (1.0-4.8) k/uL Monocytes # (0-1.0) k/uL Eosinophils # (0-0.7) k/uL Basophils # (0-0.2) k/uL Hypochromasia Anisocytosis PT 10.0 (9.0-12.0) sec INR 1.0 (<1.2) APTT 23.9 (22.0-30.0) sec Sodium (137-145) mmol/L Potassium (3.5-5.1) mmol/L Chloride (98-107) mmol/L Carbon Dioxide (22-30) mmol/L Anion Gap mmol/L BUN (7-17) mg/dL Creatinine (0.52-1.04) mg/dL Est GFR (MDRD) Af Amer (>60 ml/min/1.73 sqM) Est GFR (MDRD) Non-Af (>60 ml/min/1.73 sqM) Glucose (74-99) mg/dL Plasma Lactic Acid [place] 0.8 (0.7-2.0) mmol/L Calcium (8.4-10.2) mg/dL Phosphorus (2.5-4.5) mg/dL Magnesium (1.6-2.3) mg/dL Total Bilirubin (0.2-1.3) mg/dL AST (14-36) U/L ALT (9-52) U/L Alkaline Phosphatase (38-126) U/L Total Creatine Kinase (30-135) U/L CK-MB (CK-2) (0.0-2.4) ng/mL CK-MB (CK-2) Rel Index Troponin I (0.000-0.034) ng/mL Total Protein (6.3-8.2) g/dL Albumin (3.5-5.0) g/dL Urine Color Yellow Urine Appearance Clear (Clear) Urine pH 6.5 (5.0-8.0) Ur Specific [place] 1.011 (1.001-1.035) Urine Protein Trace H (Negative) Urine Glucose (UA) Negative (Negative) Urine Ketones Negative (Negative) Urine Blood Trace H (Negative) Urine Nitrite Negative (Negative) Urine Bilirubin Negative (Negative) Urine Urobilinogen <2.0 (<2.0) mg/dL Ur Leukocyte Esterase Small H (Negative) Urine RBC 5 (0-5) /hpf Urine WBC 43 H (0-5) /hpf Ur Squamous Epith Cells 3 (0-4) /hpf Amorphous Sediment Rare H (None) /hpf Hyaline Casts 4 H (0-2) /lpf Urine Mucus Rare H (None) /hpf - Radiology Data Radiology results: report reviewed (CXR is negatvie for acute disease), image reviewed Disposition Clinical Impression: Delirium due to general medical condition, Altered mental status Disposition: ADMITTED IP TO THIS HOSP Referrals: Chris Lassiter MD [Primary Care Provider] - 1-2 days
[2017-05-27 17:13] LABS: Anisocytosis Slight; Basophils % (A) 0 %; Eosinophils # (A) 0.2 k/uL (0-0.7); Eosinophils % (A) 3 %; HCT 30.2 % (34.0-46.0); HGB 8.9 gm/dL (11.4-16.0); Hypochromasia Marked; Lymphocytes # (A) 0.6 k/uL (1.0-4.8); Lymphocytes % (A) 8 %; MCH 26.3 pg (25.0-35.0); MCHC 29.5 g/dL (31.0-37.0); MCV 89.1 fL (80.0-100.0); Mean Platelet Volume 6.7; Monocytes # (A) 0.3 k/uL (0-1.0); Monocytes % (A) 4 %; Neutrophils # (A) 6.3 k/uL (1.3-7.7); Neutrophils % (A) 84 %; Platelet Count 440 k/uL (150-450); RBC 3.38 m/uL (3.80-5.40); RDW 17.8 % (11.5-15.5); WBC 7.5 k/uL (3.8-10.6)
[2017-05-27 17:24] VITALS: RESP 16
[2017-05-27 17:27] LABS: Partial Thromboplastin Time 23.9 sec (22.0-30.0)
[2017-05-27 17:28] LABS: ALT 21 U/L (9-52); AST 12 U/L (14-36); Albumin 1.9 g/dL (3.5-5.0); Alkaline Phosphatase 104 U/L (38-126); Anion Gap 6 mmol/L; Blood Urea Nitrogen 23 mg/dL (7-17); Calcium 9.1 mg/dL (8.4-10.2); Carbon Dioxide 23 mmol/L (22-30); Chloride 112 mmol/L (98-107); Glucose 78 mg/dL (74-99); Phosphorus 3.4 mg/dL (2.5-4.5); Potassium 4.2 mmol/L (3.5-5.1); Sodium 141 mmol/L (137-145); Total Bilirubin 0.2 mg/dL (0.2-1.3); Total Protein 4.6 g/dL (6.3-8.2)
[2017-05-27 17:39] LABS: Creatine Kinase <20 U/L (30-135)
[2017-05-27 17:52] LABS: Creatine Kinase MB 0.9 ng/mL (0.0-2.4); Troponin I <0.012 ng/mL (0.000-0.034)
--- NOTE | 2017-05-27 18:01 | XR ---
EXAMINATION TYPE: XR chest 2V DATE OF EXAM: 05/27/2017 COMPARISON: 05/17/2017 HISTORY: Shortness of breath TECHNIQUE: Frontal and lateral views of the chest are obtained. FINDINGS: Scattered senescent parenchymal changes noted. Hyperinflation compatible with COPD. No evidence for infiltrate. No evidence for atelectasis. Heart size is stable. Mediastinal structures are stable and grossly unremarkable. No evidence for hilar prominence. MediPort catheter is in place. Degenerative changes dorsal spine. IMPRESSION: 1. No evidence for acute pulmonary disease.
[2017-05-27 18:02] LABS: Amorphous Sediment,Urine Rare /hpf; Appearance,Urine Clear (Clear); Bilirubin,Urine Negative (Negative); Blood,Urine Trace (Negative); Color,Urine Yellow; Glucose,Urine (UA) Negative (Negative); Hyaline Casts,Urine 4 /lpf (0-2); Ketones,Urine Negative (Negative); Leukocyte Esterase,Urine Small (Negative); Mucus,Urine Rare /hpf; Nitrite,Urine Negative (Negative); PH, Urine 6.5 (5.0-8.0); Protein,Urine Trace (Negative); RBC,Urine 5 /hpf (0-5); Specific Gravity,Urine 1.011 (1.001-1.035); Squamous Epithelial Cell,Urine 3 /hpf (0-4); Urobilinogen,Urine <2.0 mg/dL (<2.0); WBC,Urine 43 /hpf (0-5)
[2017-05-27 18:57] VITALS: BP 164/92; PULSE 98
== END 2017-05-27 19:30 | disposition other institution (70) ==
LOC: EC 16:07
DX: F05 Delirium due to known physiological condition (principal); R41.82 Altered mental status, unspecified; M19.90 Unspecified osteoarthritis, unspecified site; M10.9 Gout, unspecified; E66.01 Morbid (severe) obesity due to excess calories; Z68.42 Body mass index [BMI] 45.0-49.9, adult; D62 Acute posthemorrhagic anemia; I12.9 Hypertensive chronic kidney disease with stage 1 through stage 4 chronic kidney disease, or unspecified chronic kidney disease; N18.3 Chronic kidney disease, stage 3 (moderate); Z85.3 Personal history of malignant neoplasm of breast; Z79.52 Long term (current) use of systemic steroids; Z79.899 Other long term (current) drug therapy; Z88.1 Allergy status to other antibiotic agents; Z88.5 Allergy status to narcotic agent
CPT/HCPCS: 36415; 71046; 80053; 81001; 82550; 82553; 83605; 83735; 84100; 84484; 85025; 85610; 85730; 87040; 87086; 96360; 96361; 99285

== ENCOUNTER 2017-07-03 10:18 | Inpatient (IN) | payer MEDICARE, OTHER ==
--- NOTE | 2017-07-03 11:06 | ED ---
General Adult HPI - General Chief complaint: Altered Mental Status Stated complaint: Weakness Time Seen by Provider: 07/03/17 10:32 Source: patient, family, RN/MD, RN notes reviewed Mode of arrival: EMS Limitations: altered mental status - History of Present Illness Initial comments: Patient is a pleasant 71-year-old female presenting to the emergency department with reported altered mental status. Patient reportedly has been more confused for the past 3 days. Confusion reportedly is not as bad today however patient did have an episode of some slurred speech. Patient feels she is normal at this time. Patient denies any slurred speech at this time. is present and in agreement. - Related Data Home Medications Medication Instructions Recorded Confirmed Ferrous Sulfate [Iron (65 MG 325 mg PO TID@0500,1300,2100 07/04/14 07/03/17 Elemental)] Bisacodyl [Dulcolax] 10 mg RECTAL DAILY PRN 08/21/16 07/03/17 Mometasone Furoate 1 applic TOPICAL BID 08/21/16 07/03/17 Acetaminophen Tab [Tylenol] 650 mg PO Q6H PRN 04/04/17 07/03/17 Baclofen [Lioresal] 10 mg PO BID PRN 04/04/17 07/03/17 Magnesium Oxide [Mag-Ox] 400 mg PO HS 04/04/17 07/03/17 Sennosides [Senna] 17.2 mg PO Q24H PRN 04/04/17 07/03/17 Vits A and D/White Pet/Lanolin [A 1 applic TOPICAL HS 04/04/17 07/03/17 and D Ointment] Amino Acids/Protein Hydrolys 30 ml PO W/LUNCH 05/27/17 07/03/17 [Pro-Stat Supplement] Cyanocobalamin [Vitamin B-12] 500 mcg PO HS 05/27/17 07/03/17 Ranitidine HCl 150 mg PO HS 05/27/17 07/03/17 traMADol HCl [Ultram] 50 mg PO BID@0700,1900 05/27/17 07/03/17 Aspirin EC [Ecotrin Low Dose] 81 mg PO HS 07/03/17 07/03/17 Ibuprofen 400 mg PO Q6H PRN 07/03/17 07/03/17 Previous Rx's Medication Instructions Recorded ALPRAZolam [Xanax] 0.5 mg PO Q8H PRN #20 tab 05/18/17 Ammonium Lactate Lotion 1 applic TOPICAL BID #200 gm 05/18/17 [Lac-Hydrin 12% Lotion] traMADol HCL [Ultram] 50 mg PO Q4HR PRN #10 tablet 05/18/17 Allergies Allergy/AdvReac Type Severity Reaction Status Date / Time levofloxacin [From Levaquin] Allergy Unknown Verified 07/03/17 10:34 hydrocodone AdvReac Hallucinati Verified 07/03/17 10:34 ons Review of Systems ROS Statement: Those systems with pertinent positive or pertinent negative responses have been documented in the HPI. ROS Other: All systems not noted in ROS Statement are negative. Constitutional: Denies: fever Eyes: Denies: eye pain ENT: Denies: ear pain Respiratory: Denies: cough Cardiovascular: Denies: chest pain Endocrine: Denies: fatigue Gastrointestinal: Denies: abdominal pain, vomiting Genitourinary: Denies: dysuria Musculoskeletal: Denies: back pain Skin: Denies: rash Neurological: Reports: confusion. Denies: weakness Past Medical History Past Medical History: Cancer, Hyperlipidemia, Hypertension, Osteoarthritis (OA) , Pneumonia Additional Past Medical History / Comment(s): 08/21/16 with acute blood loss anemia from vaginal bleed. Other hx: REG PERIODS CEASED IN 1999 BUT IN 2015 STARTED TO HAVE INTERMITTENT VAGINAL BLEEDING HAD D&Cx2-DID'NT HELP. SAW DRS AT [facility] AND [facility]."I WAS TOLD NOT A CANDIDATE FOR HYSTERECTOMY OR UTERINE ABLATION ,PT STATED "WAS CHECKED FOR CANCER-NEG" urinary leakage, BILATERAL BREAST CANCER with surgery and chemo/radiation, severe LYMPHEDEMA BILATERAL LEGS, venostasis-past sores on back of legs, past lower leg cellulitis , chronic anemia since 2013, UTI'S, on gout medicine for increase uric acid level but stated never had flare up of gout. morbid obesity,constipation. per [facility] paperwork-hx of ckd stage 2 , History of Any Multi-Drug Resistant Organisms: None Reported Past Surgical History: Adenoidectomy, Breast Surgery, Tonsillectomy Additional Past Surgical History / Comment(s): LUMPECTOMY RIGHT BREAST, lymph nodes removed left axillae. PICC line placed 2 months ago per pts [facility], left-sided port. Past Anesthesia/Blood Transfusion Reactions: No Reported Reaction Additional Past Anesthesia/Blood Transfusion Reaction / Comment(s): Pt has received blood in past without reaction. Past Psychological History: No Psychological Hx Reported, Anxiety Smoking Status: Never smoker Past Alcohol Use History: None Reported Past Drug Use History: None Reported - Past Family History Father Family Medical History: Coronary Artery Disease (CAD), Diabetes Mellitus, Mitral Valve Prolapse (MVP) Additional Family Medical History / Comment(s): has a porcine valve Mother Family Medical History: Chest Pain / Angina, Diabetes Mellitus Additional Family Medical History / Comment(s): weak heart General Exam Limitations: altered mental status General appearance: alert, in no apparent distress, obese Head exam: Present: atraumatic Eye exam: Present: normal appearance, PERRL ENT exam: Present: normal oropharynx Neck exam: Present: normal inspection Respiratory exam: Present: normal lung sounds bilaterally Cardiovascular Exam: Present: regular rate, normal rhythm GI/Abdominal exam: Present: soft. Absent: distended, tenderness Extremities exam: Present: pedal edema, other (Lymphedema) Neurological exam: Present: alert, oriented X3, CN II-XII intact Expanded Neurological exam: Present: protecting the airway Patient oriented to: Present: person, place, time Speech: Present: fluid speech Cranial nerves: EOM's Intact: Normal Motor strength exam: RUE: 5, LUE: 5, RLE: 4, LLE: 4 Eye Response: (4) open spontaneously Motor Response: (6) obeys commands Verbal Response: (5) oriented Psychiatric exam: Present: normal affect, normal mood Skin exam: Present: normal color Course Vital Signs 07/03/17 07/03/17 07/03/17 10:21 12:20 13:39 Temperature 98 F 97.5 F L Pulse Rate 91 99 100 Respiratory 18 16 18 Rate Blood Pressure 163/70 154/72 182/84 O2 Sat by Pulse 100 100 98 Oximetry 07/03/17 14:23 Temperature Pulse Rate 100 Respiratory 18 Rate Blood Pressure 184/90 O2 Sat by Pulse Oximetry EKG Findings - EKG Comments: EKG Findings:: Motion artifact is present. Normal sinus rhythm 100. CO 182. QRS 68. QT 332. QTC 428. Normal axis. Inferior Q waves. No acute ST change. Medical Decision Making - Medical Decision Making Patient reevaluated and resting comfortably in bed. Patient and family updated on results and plan. Case was discussed in detail with practitioner Nora, who will admit for Dr. Lassiter. She is working with Dr. Dominique - Lab Data Result diagrams: 07/03/17 11:25 07/03/17 11:25 Lab Results 07/03/17 07/03/17 07/03/17 Range/Units 11:25 11:25 11:25 WBC 4.5 (3.8-10.6) k/uL RBC 3.58 L (3.80-5.40) m/uL Hgb 9.6 L (11.4-16.0) gm/dL Hct 31.0 L (34.0-46.0) % MCV 86.6 (80.0-100.0) fL MCH 26.9 (25.0-35.0) pg MCHC 31.0 (31.0-37.0) g/dL RDW 15.9 H (11.5-15.5) % Plt Count 287 (150-450) k/uL Neutrophils % 83 % Lymphocytes % 7 % Monocytes % 6 % Eosinophils % 3 % Basophils % 1 % Neutrophils # 3.7 (1.3-7.7) k/uL Lymphocytes # 0.3 L (1.0-4.8) k/uL Monocytes # 0.2 (0-1.0) k/uL Eosinophils # 0.1 (0-0.7) k/uL Basophils # 0.0 (0-0.2) k/uL PT (9.0-12.0) sec INR (<1.2) APTT (22.0-30.0) sec Sodium 137 (137-145) mmol/L Potassium 3.7 (3.5-5.1) mmol/L Chloride 108 H (98-107) mmol/L Carbon Dioxide 24 (22-30) mmol/L Anion Gap 5 mmol/L BUN 16 (7-17) mg/dL Creatinine 0.76 (0.52-1.04) mg/dL Est GFR (CKD-EPI)AfAm >90 (>60 ml/min/1.73 sqM) Est GFR (CKD-EPI)NonAf 80 (>60 ml/min/1.73 sqM) Glucose 80 (74-99) mg/dL Calcium 9.0 (8.4-10.2) mg/dL Total Bilirubin 0.3 (0.2-1.3) mg/dL AST 11 L (14-36) U/L ALT 17 (9-52) U/L Alkaline Phosphatase 102 (38-126) U/L Total Creatine Kinase <20 L (30-135) U/L CK-MB (CK-2) 0.6 (0.0-2.4) ng/mL CK-MB (CK-2) Rel Index Troponin I <0.012 (0.000-0.034) ng/mL Total Protein 4.6 L (6.3-8.2) g/dL Albumin 1.9 L (3.5-5.0) g/dL Urine Color Urine Appearance (Clear) Urine pH (5.0-8.0) Ur Specific [place] (1.001-1.035) Urine Protein (Negative) Urine Glucose (UA) (Negative) Urine Ketones (Negative) Urine Blood (Negative) Urine Nitrite (Negative) Urine Bilirubin (Negative) Urine Urobilinogen (<2.0) mg/dL Ur Leukocyte Esterase (Negative) Urine RBC (0-5) /hpf Urine WBC (0-5) /hpf Amorphous Sediment (None) /hpf Urine Bacteria (None) /hpf Urine Mucus (None) /hpf Urine Opiates Screen (NotDetected) Ur Oxycodone Screen (NotDetected) Urine Methadone Screen (NotDetected) Ur Propoxyphene Screen (NotDetected) Ur Barbiturates Screen (NotDetected) U Tricyclic Antidepress (NotDetected) Ur Phencyclidine Scrn (NotDetected) Ur Amphetamines Screen (NotDetected) U Methamphetamines Scrn (NotDetected) U Benzodiazepines Scrn (NotDetected) Urine Cocaine Screen (NotDetected) U Marijuana (THC) Screen (NotDetected) 07/03/17 07/03/17 07/03/17 Range/Units 11:25 12:49 12:49 WBC (3.8-10.6) k/uL RBC (3.80-5.40) m/uL Hgb (11.4-16.0) gm/dL Hct (34.0-46.0) % MCV (80.0-100.0) fL MCH (25.0-35.0) pg MCHC (31.0-37.0) g/dL RDW (11.5-15.5) % Plt Count (150-450) k/uL Neutrophils % % Lymphocytes % % Monocytes % % Eosinophils % % Basophils % % Neutrophils # (1.3-7.7) k/uL Lymphocytes # (1.0-4.8) k/uL Monocytes # (0-1.0) k/uL Eosinophils # (0-0.7) k/uL Basophils # (0-0.2) k/uL PT 10.1 (9.0-12.0) sec INR 1.0 (<1.2) APTT 22.7 (22.0-30.0) sec Sodium (137-145) mmol/L Potassium (3.5-5.1) mmol/L Chloride (98-107) mmol/L Carbon Dioxide (22-30) mmol/L Anion Gap mmol/L BUN (7-17) mg/dL Creatinine (0.52-1.04) mg/dL Est GFR (CKD-EPI)AfAm (>60 ml/min/1.73 sqM) Est GFR (CKD-EPI)NonAf (>60 ml/min/1.73 sqM) Glucose (74-99) mg/dL Calcium (8.4-10.2) mg/dL Total Bilirubin (0.2-1.3) mg/dL AST (14-36) U/L ALT (9-52) U/L Alkaline Phosphatase (38-126) U/L Total Creatine Kinase (30-135) U/L CK-MB (CK-2) (0.0-2.4) ng/mL CK-MB (CK-2) Rel Index Troponin I (0.000-0.034) ng/mL Total Protein (6.3-8.2) g/dL Albumin (3.5-5.0) g/dL Urine Color Light Yellow Urine Appearance Cloudy H (Clear) Urine pH 7.0 (5.0-8.0) Ur Specific [place] 1.009 (1.001-1.035) Urine Protein Negative (Negative) Urine Glucose (UA) Negative (Negative) Urine Ketones Negative (Negative) Urine Blood Trace H (Negative) Urine Nitrite Positive H (Negative) Urine Bilirubin Negative (Negative) Urine Urobilinogen <2.0 (<2.0) mg/dL Ur Leukocyte Esterase Large H (Negative) Urine RBC 9 H (0-5) /hpf Urine WBC 57 H (0-5) /hpf Amorphous Sediment Occasional H (None) /hpf Urine Bacteria Occasional H (None) /hpf Urine Mucus Rare H (None) /hpf Urine Opiates Screen Not Detected (NotDetected) Ur Oxycodone Screen Not Detected (NotDetected) Urine Methadone Screen Not Detected (NotDetected) Ur Propoxyphene Screen Not Detected (NotDetected) Ur Barbiturates Screen Not Detected (NotDetected) U Tricyclic Antidepress Not Detected (NotDetected) Ur Phencyclidine Scrn Not Detected (NotDetected) Ur Amphetamines Screen Not Detected (NotDetected) U Methamphetamines Scrn Not Detected (NotDetected) U Benzodiazepines Scrn Detected H (NotDetected) Urine Cocaine Screen Not Detected (NotDetected) U Marijuana (THC) Screen Not Detected (NotDetected) - Radiology Data Radiology results: report reviewed (Computed tomography scan of the brain shows no acute process. Atrophy and chronic small vessel ischemia changes are present.), image reviewed (Chest x-ray shows no acute process.) Disposition Clinical Impression: TIA (transient ischemic attack) Disposition: ADMITTED IP TO THIS [facility] Referrals: Chris Lassiter MD [Primary Care Provider] - 1-2 days
[2017-07-03 11:40] LABS: Basophils % (A) 1 %; Eosinophils # (A) 0.1 k/uL (0-0.7); Eosinophils % (A) 3 %; HGB 9.6 gm/dL (11.4-16.0); Lymphocytes # (A) 0.3 k/uL (1.0-4.8); Lymphocytes % (A) 7 %; MCH 26.9 pg (25.0-35.0); MCV 86.6 fL (80.0-100.0); Mean Platelet Volume 6.9; Monocytes # (A) 0.2 k/uL (0-1.0); Monocytes % (A) 6 %; Neutrophils # (A) 3.7 k/uL (1.3-7.7); Neutrophils % (A) 83 %; Platelet Count 287 k/uL (150-450); RBC 3.58 m/uL (3.80-5.40); RDW 15.9 % (11.5-15.5); WBC 4.5 k/uL (3.8-10.6)
[2017-07-03 11:50] LABS: ALT 17 U/L (9-52); AST 11 U/L (14-36); Albumin 1.9 g/dL (3.5-5.0); Alkaline Phosphatase 102 U/L (38-126); Anion Gap 5 mmol/L; Blood Urea Nitrogen 16 mg/dL (7-17); Carbon Dioxide 24 mmol/L (22-30); Chloride 108 mmol/L (98-107); Glucose 80 mg/dL (74-99); Potassium 3.7 mmol/L (3.5-5.1); Sodium 137 mmol/L (137-145); Total Bilirubin 0.3 mg/dL (0.2-1.3); Total Protein 4.6 g/dL (6.3-8.2)
[2017-07-03 11:51] LABS: Partial Thromboplastin Time 22.7 sec (22.0-30.0); Prothrombin Time 10.1 sec (9.0-12.0)
--- NOTE | 2017-07-03 12:00 | CT ---
EXAMINATION TYPE: CT brain wo con DATE OF EXAM: 07/03/2017 COMPARISON: 05/09/2017 HISTORY: Altered mental status-weakness CT DLP: 989.6 mGycm Automated exposure control for dose reduction was used. TECHNIQUE: CT scan of the head is performed without contrast. FINDINGS: There is no acute intracranial hemorrhage or midline shift identified. There is diffuse v entricular and sulcal prominence consistent with diffuse age-related cerebral atrophy. There is low- attenuation in the periventricular white matter consistent with chronic small vessel ischemic change. The globes are intact and the visualized sinuses are clear. Cerumen is noted within the external auditory canals incidentally. IMPRESSION: No acute intracranial hemorrhage or midline shift. Diffuse age-related cerebral atrophy and chronic small vessel ischemic change noted.
[2017-07-03 12:02] LABS: Creatine Kinase <20 U/L (30-135)
--- NOTE | 2017-07-03 12:13 | XR ---
EXAMINATION TYPE: XR chest 2V DATE OF EXAM: 07/03/2017 COMPARISON: 05/27/2017 HISTORY: Shortness of breath TECHNIQUE: Frontal and lateral views of the chest are obtained. FINDINGS: Scattered senescent parenchymal changes noted. MediPort catheter is in place. No evidence for infiltrate. No evidence for atelectasis. Heart size is stable. Mediastinal structures are stable and grossly unremarkable. No evidence for hilar prominence. Degenerative changes dorsal spine. IMPRESSION: 1. No evidence for acute pulmonary disease.
[2017-07-03 12:15] LABS: Creatine Kinase MB 0.6 ng/mL (0.0-2.4); Troponin I <0.012 ng/mL (0.000-0.034)
[2017-07-03 13:01] LABS: Amorphous Sediment,Urine Occasional /hpf; Appearance,Urine Cloudy (Clear); Bacteria,Urine Occasional /hpf; Bilirubin,Urine Negative (Negative); Blood,Urine Trace (Negative); Color,Urine Light Yellow; Glucose,Urine (UA) Negative (Negative); Ketones,Urine Negative (Negative); Leukocyte Esterase,Urine Large (Negative); Mucus,Urine Rare /hpf; Nitrite,Urine Positive (Negative); Protein,Urine Negative (Negative); RBC,Urine 9 /hpf (0-5); Specific Gravity,Urine 1.009 (1.001-1.035); Urobilinogen,Urine <2.0 mg/dL (<2.0); WBC,Urine 57 /hpf (0-5)
[2017-07-03 13:07] LABS: Amphetamine Screen,Urine Not Detected (NotDetected); Barbiturate Screen,Urine Not Detected (NotDetected); Benzodiazepines Screen,Urine Detected (NotDetected); Cocaine Screen,Urine Not Detected (NotDetected); Methadone Screen, Urine Not Detected (NotDetected); Opiate Screen,Urine Not Detected (NotDetected); Oxycodone Screen, Urine Not Detected (NotDetected); Phencyclidine Screen,Urine Not Detected (NotDetected); Tricyclic Antidepressant,Urine Not Detected (NotDetected); Urn Cannabinoid Scrn Not Detected (NotDetected)
[2017-07-03] MEDS ORDERED: ASPIRIN 325 MG TAB PO STA (15:08)
[2017-07-03] MEDS ORDERED: BACLOFEN 10 MG TAB PO STA (16:06)
[2017-07-03] MEDS: SODIUM CHLORIDE 0.9% 1,000 ML IV SCH (16:16)
[2017-07-03] MEDS ORDERED: ACETAMINOPHEN TAB 325 MG TAB PO PRN (18:13)
[2017-07-03] MEDS ORDERED: IBUPROFEN 400 MG TAB PO PRN (18:13)
[2017-07-03] MEDS ORDERED: SENNOSIDES 8.6 MG TAB PO PRN (18:13)
[2017-07-03] MEDS ORDERED: BISACODYL 10 MG SUPP RECTAL PRN (18:13)
[2017-07-03] MEDS ORDERED: traMADol 50 MG TAB PO PRN (18:13)
[2017-07-03] MEDS ORDERED: BACLOFEN 10 MG TAB PO PRN (18:20)
[2017-07-03] MEDS: cefTRIAXone IN SWFI 1,000 MG/10 ML SYRINGE IVP SCH (18:59)
[2017-07-03 22:29] LABS: Cholesterol 143 mg/dL (<200); HDL Cholesterol 31 mg/dL (40-60); LDL Cholesterol,Calculated 87 mg/dL (0-99); Triglycerides 127 mg/dL (<150)
[2017-07-03] MEDS: CYANOCOBALAMIN 500 MCG TAB PO SCH (22:31)
[2017-07-03] MEDS: MAGNESIUM OXIDE 400 MG TAB PO SCH (22:31)
[2017-07-03] MEDS: HEPARIN SODIUM,PORCINE 5,000 UNIT/ML 1 ML VIAL SQ SCH (22:31)
[2017-07-03] MEDS: FAMOTIDINE 20 MG TAB PO SCH (22:31)
[2017-07-03] MEDS: ASPIRIN 81 MG PO SCH (22:31)
[2017-07-03] MEDS: FERROUS SULFATE 325 MG TAB PO SCH (22:32)
--- NOTE | 2017-07-03 22:34 | HP ---
HISTORY AND PHYSICAL DATE OF SERVICE: 07/03/2017 CHIEF COMPLAINTS: Change in mental status and generalized weakness. HISTORY OF PRESENT ILLNESS: This 71-year-old woman with a past medical history of multiple medical problems now followed by Dr. Lassiter in [facility] for the last 1 year. The patient was recently admitted to [facility] with complaints of UTI with sepsis and bilateral venous stasis and toxic encephalopathy. The patient also had chronic vaginal bleeding. Currently the patient was noted to have change in mental status and the ECF was concerned and the patient was more confused for the last 3 days and the patient taken to [facility] and admitted for further evaluation and treatment. The patient also complaining of lower abdominal pain. UA shows significant UTI, also. Infectious Disease was seeing the patient during the last hospitalization. The patient also had some skin tears on the right side, had some swelling on the right upper arm also. There is no history of fever, rigors. No history of headache, loss of consciousness, seizures. Patient's sensorium is already improving at this time. PAST MEDICAL HISTORY: History of hyperlipidemia, hypertension, history of DJD, history of pneumonia, history of morbid obesity, adenoidectomy and breast surgery. MEDICATIONS PRIOR TO ADMISSION: Include: 1. Ultram 50 mg q.4h p.r.n. 2. Senna 17.2 mg q.24 hours p.r.n. 3. Ibuprofen 400 mg p.o. every 6 hours p.r.n. 4. Ultram 50 mg p.o. b.i.d. 5. Iron 320 mg p.o. t.i.d. 6. Dulcolax 10 mg rectally daily p.r.n. 7. Lioresal 10 mg b.i.d. p.r.n. 8. Tylenol 650 every 6 hours p.r.n. 9. Xanax 0.5 q.8h p.r.n. 10.Vitamin A and D q.h.s. 11.Mometasone 1 application b.i.d. 12.Lac-Hydrin 1 application b.i.d. 13.Ranitidine 150 mg p.o. q.h.s. 14.Magnesium oxide 400 mg q.h.s. 15.Vitamin B12 500 mcg p.o. q.h.s. 16.Pro-Stat 30 mL p.o. with lunch. 17.Ecotrin 81 mg p.o. q.h.s. ALLERGIES: LEVAQUIN and HYDROCORTISONE. FAMILY HISTORY: History of chest pain angina, diabetes mellitus. SOCIAL HISTORY: No history of smoking. No history of alcohol intake. REVIEW OF SYSTEMS: ENT: Diminished hearing, diminished vision. CARDIOVASCULAR: No angina, palpitations. RESPIRATORY: As mentioned earlier. GI: As mentioned earlier. : No dysuria. NERVOUS: No numbness or weakness. ALLERGY/IMMUNOLOGY: No asthma or hay fever. MUSCULOSKELETAL: As mentioned earlier. HEMATOLOGY/ONCOLOGY: No history of anemia. ENDOCRINE: No history of diabetes, hypothyroidism. CONSTITUTIONAL: As mentioned earlier. DERMATOLOGY: Negative. RHEUMATOLOGY: Negative. PSYCHIATRY: As mentioned earlier. PHYSICAL EXAMINATION: Alert, oriented x3. Pulse 95, blood pressure 180/81, respirations 18, temperature 97.4, pulse ox 100% on room air. HEENT: Conjunctivae normal. Oral mucosa moist. NECK: No jugular venous distention. No carotid bruits. No lymph node enlargement. CARDIOVASCULAR: S1, S2 muffled. RESPIRATORY: Breath sounds diminished in the bases. A few scattered rhonchi, expiratory wheezing. No crackles. ABDOMEN: Soft, obese. Mild diffuse discomfort on low part of the abdomen. Otherwise, no guarding, no rigidity. No mass palpable. No hepatosplenomegaly. Bowel sounds normal. No bruit. LEGS: Bilateral leg swelling and varicose abnormalities, as chronic venous stasis is also present. NERVOUS SYSTEM: Higher functions as mentioned earlier. Moves all 4 limbs. Mild diffuse weakness. LYMPHATIC: No lymphadenopathy in neck or axillae. SKIN: As mentioned earlier. Right upper arm skin tear also present. JOINTS: No active deforming arthropathy. LABS: WBC 4.3, hemoglobin 10.6. Otherwise, albumin is 1.9. UA noted. ASSESSMENT: 1. Possible urinary tract infection with sepsis. 2. Change in mental status, metabolic encephalopathy. 3. Rule out transient ischemic attack. 4. Right arm skin tear. 5. Bilateral leg venous stasis. 6. Anemia, normocytic anemia of chronic disease. 7. Super morbid obesity, BMI of 51.9. 8. History of hypertension. 9. Hyperlipidemia. 10.History of degenerative joint disease. 11.History of pneumonia. 12.History of vaginal bleeding and blood-loss anemia. 13.History of mastectomy, status post radiation and chemotherapy. 14.History of gout, apparently. 15.History of anxiety. RECOMMENDATIONS AND DISCUSSION: In this 71-year-old woman who presented with multiple complex medical issues, will monitor the patient closely. Continue the current medical management and continue symptomatic treatment. I would recommend broad-spectrum IV antibiotics. I would initiate IV Rocephin, obtain cultures and I would also obtain infectious disease consultation. The patient was seen by Dr. Kent recently. Otherwise, I would also recommend neurology consultation, neurovascular workup. Resume the home medications. DVT prophylaxis. Symptomatic treatment. Home medications reconciled. Discussed with family at length. Prognosis guarded. We will also obtain a PT/OT evaluation and further recommendations to follow. A copy of this dictation will be forwarded to Dr. Lassiter, who is the primary physician. MMODL / JIMMIEN: [id number] /
[2017-07-03] MEDS: ZINC OXIDE 20% OINT 28.4 GM TUBE TOPICAL SCH (22:48)
[2017-07-03] MEDS: TRIAMCINOLONE ACET 0.1% OINTMENT 15 GM TUBE TOPICAL SCH (22:48)
[2017-07-03] MEDS: AMMONIUM LACTATE 12% LOTION 225 GM BTL TOPICAL SCH (22:48)
[2017-07-03] MEDS: traMADol 50 MG TAB PO SCH (23:51)
[2017-07-04] MEDS: SODIUM CHLORIDE 0.9% 1,000 ML IV SCH ×3 (01:12→21:22)
[2017-07-04] MEDS: FERROUS SULFATE 325 MG TAB PO SCH ×3 (06:22→21:29)
[2017-07-04] MEDS: traMADol 50 MG TAB PO SCH ×2 (06:22→21:29)
[2017-07-04] MEDS: AMMONIUM LACTATE 12% LOTION 225 GM BTL TOPICAL SCH ×2 (10:11→21:35)
[2017-07-04] MEDS: HEPARIN SODIUM,PORCINE 5,000 UNIT/ML 1 ML VIAL SQ SCH ×2 (10:11→21:30)
[2017-07-04] MEDS: TRIAMCINOLONE ACET 0.1% OINTMENT 15 GM TUBE TOPICAL SCH ×2 (10:11→21:35)
[2017-07-04] MEDS ORDERED: ASPIRIN 325 MG TAB PO SCH (12:00)
[2017-07-04] MEDS: cefTRIAXone IN SWFI 1,000 MG/10 ML SYRINGE IVP SCH (12:22)
[2017-07-04] MEDS ORDERED: NON-FORMULARY DRUG (Amino Acids/Protein Hydrolys [Pro-Stat Supplement] 30 ML) PO SCH (12:30)
--- NOTE | 2017-07-04 19:14 | PN ---
PROGRESS NOTE DATE OF SERVICE: 07/04/2017 This 71-year-old woman was admitted with change in mental status and generalized weakness, also suspected to have a UTI with sepsis. The patient is being closely monitored at this time. The patient also had change in mental status. The patient also has significant right arm tear, also. Multiple consultants are following the patient closely. PAST MEDICAL HISTORY: Reviewed. REVIEW OF SYSTEM: CARDIOVASCULAR: No angina, palpitations. RESPIRATORY: As mentioned earlier. GI: No nausea, vomiting. : As mentioned earlier. NERVOUS: No numbness or weakness. CURRENT MEDICATIONS: Reviewed, include: 1. Tylenol 650 every 6 hours p.r.n. 2. Xanax 0.5 q.8h. 3. Aspirin 81 mg. 4. Lorcet 10 mg b.i.d. p.r.n. 5. Dulcolax. 6. Rocephin 1 g IV daily. 7. Vitamin B12. 8. Pepcid 20 mg q.h.s. 9. Iron sulfate 320 mg daily. 10.Heparin 5 mg subcu b.i.d. 11.Motrin 400 mg every 6 hours p.r.n. 12.Lac-Hydrin. 13.Milk of magnesia. 14.Senokot. 15.Ultram. 16.Kenalog. PHYSICAL EXAM: Patient is alert and oriented x2. Pulse 99, blood pressure 170/105, respirations 18, temperature is normal, pulse ox normal. HEENT: Conjunctivae normal. Oral mucosa moist. NECK: No jugular venous distention. No carotid bruits. No lymph node enlargement. CARDIOVASCULAR: S1, S2 muffled. RESPIRATORY: Breath sounds diminished in the bases. A few scattered rhonchi. No crackles. ABDOMEN: Soft, obese, nontender. LEGS: Chronic edema. Varicose lesions, also. NERVOUS SYSTEM: No focal deficits. LABS: Hemoglobin 9.6. UA noted. ASSESSMENT: 1. Possible urinary tract infection with sepsis, present on admission. 2. Change in mental status, acute metabolic acidosis secondary to sepsis. 3. Right arm skin tear. 4. Bilateral leg venous stasis. 5. Anemia, normocytic anemia of chronic disease. 6. Super morbid obesity, BMI 51.9. 7. History of hypertension. 8. Hyperlipidemia. 9. Hospital course of degenerative joint disease. 10.History of pneumonia. 11.History of vaginal bleeding and blood-loss anemia. 12.History of mastectomy, status post radiation and chemotherapy. 13.History of gout previously. 14.History of anxiety. RECOMMENDATIONS AND DISCUSSION: Recommend to continue current medical management, continue symptomatic treatment. Otherwise, closely monitor. Guarded prognosis because of multiple complex medical issues. Further recommendations to follow. I would also recommend continue the antibiotics, infectious disease evaluation, neurology evaluation. See orders for further details. MMODL / IJN: [id number] /
[2017-07-04 20:40] LABS: Glucose,Whole Blood 80 mg/dL (75-99)
[2017-07-04] MEDS: FAMOTIDINE 20 MG TAB PO SCH (21:29)
[2017-07-04] MEDS: ASPIRIN 81 MG PO SCH (21:29)
[2017-07-04] MEDS: CYANOCOBALAMIN 500 MCG TAB PO SCH (21:29)
[2017-07-04] MEDS: MAGNESIUM OXIDE 400 MG TAB PO SCH (21:29)
[2017-07-04] MEDS: ZINC OXIDE 20% OINT 28.4 GM TUBE TOPICAL SCH (21:35)
--- NOTE | 2017-07-05 00:29 | CONS ---
CONSULTATION DATE OF SERVICE: 07/04/2017. REASON FOR CONSULTATION: Urinary tract infection. HISTORY OF PRESENT ILLNESS: The patient is a 71-year-old female who has been brought into the ER at [facility] with chief complaint of mental status changes. Apparently symptom have been going on for a day or two prior. The patient has been brought into the hospital. The patient noted to have chronic bed-bound status. Has chronic indwelling Urbina catheter, changed about a month ago. The patient did mention that she has been brought in because she was confused. She did not remember anything. When asked specifically where she is, she remembers she is in the hospital. The patient denies having any chest pain, shortness of breath. No cough. No abdominal pain. No nausea, vomiting or diarrhea. The patient subsequently has been evaluated by the ER physician. The patient was noticed to have a positive UA. She has a diagnosis of UTI infection. She has been admitted to the hospital and Infectious Disease was consulted for further recommendation regarding antibiotic therapy. REVIEW OF SYSTEMS: CONSTITUTIONAL: Positive for weakness, some chills. EYES: No complaints. ENT: No complaints. RESPIRATORY: No complaint. CARDIOVASCULAR: No complaint. GENITOURINARY: As per HPI. MUSCULOSKELETAL: No complaint. INTEGUMENTARY: No complaint. PSYCHOLOGICAL: No complaint. ENDOCRINE: No complaint. NEUROLOGICAL: As per HPI. PAST MEDICAL HISTORY: Significant for hypertension, hyperlipidemia, osteoarthritis, pneumonia, history of breast cancer, lower extremity cellulitis. PAST SURGICAL HISTORY: Adenoidectomy, right breast lumpectomy, left lower leg wound, left-sided MediPort. SOCIAL HISTORY: No history of smoking, drinking or drug use. , lives with . FAMILY HISTORY: Father history of mitral valve prolapse with diabetes mellitus and coronary artery disease. Mother with history of diabetes. ALLERGIES: LEVOFLOXACIN, HYDROCODONE. MEDICATIONS: The patient is currently on Tylenol, Xanax, aspirin, baclofen, Dulcolax, Rocephin 1 g daily, Pepcid, iron sulfate, heparin, Motrin, Mag oxide, zinc oxide, Senokot, Ultram, Kenalog. EXAMINATION: Blood pressure 147/90 with a pulse of 90 temperature 97.2. She is 100% on room air. GENERAL DESCRIPTION: An elderly female, lying in bed in no distress. No tachypnea or accessory muscle of respiration use. HEENT: Shows pallor. No scleral icterus. Oral mucous membrane is dry. NECK: Trachea central. No thyromegaly. LUNGS: Unlabored breathing. Clear to auscultation anteriorly. No wheeze or crackle. HEART: S1, S2. Regular rate and rhythm. ABDOMEN: Soft, no tenderness. No guarding or rigidity. No organomegaly. EXTREMITIES: Some swelling. No definite redness. SKIN: Multiple bruises. No rash or mass palpable. NEUROLOGIC: The patient is awake, alert, oriented x3. Mood and affect normal. LABS: Hemoglobin 9.6, white count 4.5, BUN of 16, creatinine 0.76. Electrolytes have been normal. Liver enzymes are normal. Urine was cloudy with , 3 to 7 WBC, cultures currently pending. DIAGNOSTIC IMPRESSION AND PLAN: Patient admitted to the hospital with mental status changes which is likely multifactorial, likely with a component of catheter-associated urinary tract infection as well as clinical focus of infection. Lungs are clear to auscultation. Abdomen was soft. No evidence of cellulitis. PLAN: 1. Change Urbina catheter. 2. Obtain urine culture from new Urbina. 3. Rocephin 1 g IV piggyback daily while waiting for the culture to finalize. 4. We will follow up on the clinical condition and culture to further adjust medication if needed. Thank you for this consultation and for allowing me to follow the patient along with you. BRYSON / VINICIUS: [id number] /
--- NOTE | 2017-07-05 01:18 | P.CNNES ---
History of Present Illness Consult date: 07/04/17 Requesting physician: Enrique Grissom Reason for Consult: TIA Chief complaint: Altered mentla status History of Present Illness: Neurology is consulting on a 71 year old femalewith multiple comorbidities. Patient recently admitted to [facility] for UTI sepsis and bilateral venous stasis and toxic encephalopathy. Patient was increaingly confused x 3 days, lower abdominal pain also was reported. UA showed significant UTI, ID on consult already. Patient was AOx4, resting in bed in no acute distress. CT-brain noted no acute process, chronic small vessel ischemic disease. Review of Systems All systems not noted in HPI are negative. Past Medical History Past Medical History: Cancer, Hyperlipidemia, Hypertension, Osteoarthritis (OA) , Pneumonia Additional Past Medical History / Comment(s): 08/21/16 with acute blood loss anemia from (post menopasual)vaginal bleed. Other hx: REG PERIODS CEASED IN 1999 BUT IN 2015 STARTED TO HAVE INTERMITTENT VAGINAL BLEEDING HAD D&Cx2-DID' NT HELP. SAW DRS AT [facility] AND [facility]."I WAS TOLD NOT A CANDIDATE FOR HYSTERECTOMY -PT STATED "WAS CHECKED FOR CANCER-NEG"HAD UTERINE ABLATION. urinary leakage, BILATERAL BREAST CANCER-RT LUMPECTOMY W/RADIATION AND LT PARTIAL MASECTOMY W/ RADIATION AND CHEMO. severe LYMPHEDEMA BILATERAL LEGS, venostasis-past sores on back of legs, past lower leg cellulitis, chronic anemia since 2013, UTI'S, on gout medicine for increase uric acid level but stated never had flare up of gout. djd morbid obesity,constipation. per [employer] paperwork-hx of ckd stage 2 , History of Any Multi-Drug Resistant Organisms: None Reported Past Surgical History: Adenoidectomy, Breast Surgery, Tonsillectomy Additional Past Surgical History / Comment(s): L UMPECTOMY RIGHT BREAST, partial lt masectomy/ lymph nodes removed left axillae. PICC line placed and since removed. left-sided port. Past Anesthesia/Blood Transfusion Reactions: No Reported Reaction Additional Past Anesthesia/Blood Transfusion Reaction / Comment(s): Pt has received blood in past without reaction. Smoking Status: Never smoker - Past Family History Father Family Medical History: Coronary Artery Disease (CAD), Diabetes Mellitus, Mitral Valve Prolapse (MVP) Additional Family Medical History / Comment(s): has a porcine valve Mother Family Medical History: Chest Pain / Angina, Diabetes Mellitus Additional Family Medical History / Comment(s): weak heart Medications and Allergies Home Medications Medication Instructions Recorded Confirmed Type Ferrous Sulfate [Iron (65 MG 325 mg PO TID@0500,1300,2100 07/04/14 07/03/17 History Elemental)] Bisacodyl [Dulcolax] 10 mg RECTAL DAILY PRN 08/21/16 07/03/17 History Mometasone Furoate 1 applic TOPICAL BID 08/21/16 07/03/17 History Acetaminophen Tab [Tylenol] 650 mg PO Q6H PRN 04/04/17 07/03/17 History Baclofen [Lioresal] 10 mg PO BID PRN 04/04/17 07/03/17 History Magnesium Oxide [Mag-Ox] 400 mg PO HS 04/04/17 07/03/17 History Sennosides [Senna] 17.2 mg PO Q24H PRN 04/04/17 07/03/17 History Vits A and D/White Pet/Lanolin [A 1 applic TOPICAL HS 04/04/17 07/03/17 History and D Ointment] ALPRAZolam [Xanax] 0.5 mg PO Q8H PRN #20 tab 05/18/17 07/03/17 Rx Ammonium Lactate Lotion 1 applic TOPICAL BID #200 gm 05/18/17 07/03/17 Rx [Lac-Hydrin 12% Lotion] traMADol HCL [Ultram] 50 mg PO Q4HR PRN #10 tablet 05/18/17 07/03/17 Rx Amino Acids/Protein Hydrolys 30 ml PO W/LUNCH 05/27/17 07/03/17 History [Pro-Stat Supplement] Cyanocobalamin [Vitamin B-12] 500 mcg PO HS 05/27/17 07/03/17 History Ranitidine HCl 150 mg PO HS 05/27/17 07/03/17 History traMADol HCl [Ultram] 50 mg PO BID@0700,1900 05/27/17 07/03/17 History Aspirin EC [Ecotrin Low Dose] 81 mg PO HS 07/03/17 07/03/17 History Ibuprofen 400 mg PO Q6H PRN 07/03/17 07/03/17 History Allergies Allergy/AdvReac Type Severity Reaction Status Date / Time levofloxacin [From Levaquin] Allergy Unknown Verified 07/03/17 19:58 hydrocodone AdvReac Hallucinati Verified 07/03/17 19:58 ons Physical Examination - Vital Signs Vital Signs: Vital Signs Temp Pulse Resp BP Pulse Ox 07/05/17 00:00 97.8 F 88 17 145/77 99 07/04/17 20:00 97.2 F L 90 17 147/98 100 07/04/17 16:30 154/93 07/04/17 16:00 92 18 172/105 07/04/17 12:00 99 18 07/04/17 08:00 99 18 139/64 100 07/04/17 04:00 97.0 F L 99 17 150/68 100 Intake and Output 07/04/17 07/04/17 07/05/17 14:59 22:59 06:59 Intake Total 582 158 Output Total 700 Balance -118 158 Intake: IV 40 Sodium Chloride 0.9% 1, 40 000 ml @ 100 mls/hr IV . Q10H MARICEL Rx#:[id number] Oral 582 118 Output: Urine 700 Other: Voiding Method Indwelling Catheter Indwelling Catheter Indwelling Catheter # Bowel Movements 1 General appearance: Alert & oriented x4, no apparent distress. Head: Atraumatic, normocephalic, normal inspection Eyes: Well appearance, PERRLA, EOMI. Absent scleral icterus, conjunctival injection, nystagmus, periorbital swelling. Ear, nose and throat: Normal exam, mucous membranes moist Neck: Normal inspection, absent tenderness, lymphadenopathy. Respiratory: No increased work of breathing Cardiovascular: Regular rate, rhythm GI/abdominal: Normal bowel sounds, nondistended, tenderness-diffuse, no guarding , no rebound, no rigidity. Extremities: bilateral leg swelling, varicose abnormalities, chronic venous stasis present Neurological: cranial nerves II through XII intact no lateralizing weakness no seizure activity noted on physical exam no pronator drift and no nystagmus. Left lower extremity: 4/5 Right lower extremity: 4/5 Left upper extremity: 4/5 Right upper extremity:4 /5 Sensation: normal Psychological: Mood and affect appropriate for setting. Results - Laboratory Findings CBC and BMP: 07/03/17 11:25 07/03/17 11:25 Abnormal Lab Findings: Abnormal Labs 07/03/17 07/03/17 07/03/17 06:00 11:25 11:25 RBC 3.58 L Hgb 9.6 L Hct 31.0 L RDW 15.9 H Lymphocytes # 0.3 L Chloride AST Total Creatine Kinase <20 L Total Protein Albumin HDL Cholesterol 31 L Urine Appearance Urine Blood Urine Nitrite Ur Leukocyte Esterase Urine RBC Urine WBC Amorphous Sediment Urine Bacteria Urine Mucus U Benzodiazepines Scrn 07/03/17 07/03/17 07/03/17 11:25 12:49 12:49 RBC Hgb Hct RDW Lymphocytes # Chloride 108 H AST 11 L Total Creatine Kinase Total Protein 4.6 L Albumin 1.9 L HDL Cholesterol Urine Appearance Cloudy H Urine Blood Trace H Urine Nitrite Positive H Ur Leukocyte Esterase Large H Urine RBC 9 H Urine WBC 57 H Amorphous Sediment Occasional H Urine Bacteria Occasional H Urine Mucus Rare H U Benzodiazepines Scrn Detected H Assessment and Plan (1) Infectious encephalopathy Current Visit: Yes Status: Acute Code(s): G93.49 - OTHER ENCEPHALOPATHY; B99.9 - UNSPECIFIED INFECTIOUS DISEASE SNOMED Code(s): 74935558 (2) Altered mental status Current Visit: No Status: Acute Code(s): R41.82 - ALTERED MENTAL STATUS, UNSPECIFIED SNOMED Code(s): 148827959 (3) UTI (urinary tract infection) Current Visit: No Status: Acute Code(s): N39.0 - URINARY TRACT INFECTION, SITE NOT SPECIFIED SNOMED Code(s): 75140420 Plan: 1. Infectious encephalopathy 2. UTI 3. Recent history/sepsis Patient does have an extensive UTI sepsis and abnormal urinalysis history and at present. It is liekly that the patient's current altered mental status is related to infectious process/encephalopathy. However, we will conduct a neurological workup to rule out other possible underlying etiologies. Diagnostic workup to include: EEG Carotid doppler CT-brain: CSVID, no acute process Treatment: Correct/treat infectious process. status: Neurology will continue to follow and provide updates as needed or warranted. I have discussed the plan of care with the physician prior to implementation and he agrees with the plan as implemented.
[2017-07-05] MEDS: SODIUM CHLORIDE 0.9% 1,000 ML IV SCH (05:22)
[2017-07-05] MEDS: traMADol 50 MG TAB PO SCH ×2 (05:36→20:31)
[2017-07-05] MEDS: FERROUS SULFATE 325 MG TAB PO SCH ×3 (06:12→23:24)
[2017-07-05] MEDS: HEPARIN SODIUM,PORCINE 5,000 UNIT/ML 1 ML VIAL SQ SCH ×2 (09:46→20:32)
[2017-07-05] MEDS: cefTRIAXone IN SWFI 1,000 MG/10 ML SYRINGE IVP SCH (09:46)
[2017-07-05] MEDS: AMMONIUM LACTATE 12% LOTION 225 GM BTL TOPICAL SCH ×2 (09:52→20:31)
[2017-07-05] MEDS: TRIAMCINOLONE ACET 0.1% OINTMENT 15 GM TUBE TOPICAL SCH ×3 (09:52→20:32)
--- NOTE | 2017-07-05 10:40 | US ---
EXAMINATION TYPE: US carotid duplex BILAT DATE OF EXAM: 07/05/2017 COMPARISON: NONE CLINICAL HISTORY: AMS/TIA. EXAM MEASUREMENTS: RIGHT: Peak Systolic Velocity (PSV) cm/sec ----- Right CCA: 53.7 ----- Right ICA: 62.5 ----- Right ECA: 44.6 ICA/CCA ratio: 1.2 RIGHT: End Diastole cm/sec ----- Right CCA: 13.6 ----- Right ICA: 18.8 ----- Right ECA: 0.0 LEFT: Peak Systolic Velocity (PSV) cm/sec ----- Left CCA: 59.5 ----- Left ICA: 63.8 ----- Left ECA: 55.2 ICA/CCA ratio: 1.1 LEFT: End Diastole cm/sec ----- Left CCA: 13.2 ----- Left ICA: 21.1 ----- Left ECA: 0.0 VERTEBRALS (direction of flow): Right Vertebral: Antegrade Left Vertebral: Antegrade Rhythm: Arrhythmia No significant stenosis seen, no elevated velocities, bilateral plaque noted at bulbs. IMPRESSION: I DO NOT SEE EVIDENCE OF A HEMODYNAMICALLY SIGNIFICANT STENOSIS IN EITHER CAROTID SYSTEM. Criteria for Assigning % of Stenosis / Diameter reduction (Estimation based on the indirect measurements of the internal carotid artery velocities (ICA PSV). 1. Normal (no stenosis)=ICA PSV < 125 cm/s: ratio < 2.0: ICA EDV<40 cm/s. 2. Less than 50% stenosis=ICA PSV < 125 cm/s: ratio < 2.0: ICA EDV<40 cm/s. 3. 50 to 69% stenosis=ICA PSV of 125 to 230 cm/s: ration 2.0 ? 4.0: ICA EDV 40-100 cm/s. 4. Greater than 70% stenosis to near occlusion= ICA PSV > 230 cm/s: ratio > 4.0: ICA EDV > 100 cm/s. 5. Near occlusion= ICA PSV velocities may be low or undetectable: variable ratio and ICA EDV. 6. Total occlusion=unable to detect flow.
--- NOTE | 2017-07-05 16:57 | PN ---
PROGRESS NOTE DATE OF SERVICE: 07/05/2017 This 71-year-old woman was admitted with UTI with sepsis also had change in mental status. The patient has extensive ulcerations of the back also at this time. Infectious Disease has been consulted. No chest pain. No palpitations. PHYSICAL EXAM: Alert and oriented x3. Pulse 101, blood pressure 160/88, respirations 16, temperature is 98.1, pulse ox 99% on room air. HEENT: Conjunctivae normal. NECK: No jugular venous distention. CARDIOVASCULAR: S1, S2. RESPIRATORY: Breath sounds diminished in the bases. A few scattered rhonchi and crackles. ABDOMEN: Soft, obese, nontender. No mass palpable. LEGS: No edema, no swelling. NERVOUS SYSTEM: Higher functions as mentioned earlier, mild diffuse weakness present otherwise. EXAMINATION OF BACK: Extensive excoriation, decubitus and ulceration present. The cultures are negative so far. ASSESSMENT: 1. Urinary tract infection with sepsis, possibly present on admission. 2. Change in mental status acute metabolic encephalopathy secondary to sepsis. 3. Right arm skin tear. 4. Extensive decubitus and skin tear and ulceration of the back. 5. Bilateral leg venostasis, chronic. 6. Anemia, normocytic anemia of chronic disease. 7. Morbid obesity. BMI 51.9. 8. History of hypertension. 9. History of hyperlipidemia. 10.History of degenerative joint disease. 11.History of pneumonia. 12.History of vaginal bleed and blood-loss anemia. 13.History of mastectomy, status post radiation chemotherapy. 14.History of gout. 15.Previous history of anxiety. RECOMMENDATIONS AND DISCUSSION: I recommend to continue current management and symptomatic treatment. Continue with empiric antibiotics. Infectious Disease evaluation. Otherwise continue to monitor. Guarded prognosis because of multiple complex medical issues. Further recommendations to follow. MMODL / IJN: [id number] /
[2017-07-05] MEDS: MAGNESIUM OXIDE 400 MG TAB PO SCH (20:32)
[2017-07-05] MEDS: ASPIRIN 81 MG PO SCH (20:32)
[2017-07-05] MEDS: ZINC OXIDE 20% OINT 28.4 GM TUBE TOPICAL SCH (20:32)
[2017-07-05] MEDS: CYANOCOBALAMIN 500 MCG TAB PO SCH (20:32)
[2017-07-05] MEDS: FAMOTIDINE 20 MG TAB PO SCH (20:32)
--- NOTE | 2017-07-05 21:54 | PN ---
PROGRESS NOTE DATE OF SERVICE: 07/05/2017. REASON FOR FOLLOWUP: Urinary tract infection, catheter associated. INTERVAL HISTORY: The patient is afebrile. She is breathing comfortably. The patient's Urbina has been changed, unfortunately from repeat urine. The patient is breathing comfortably. Denies having any chest pain, shortness of breath or cough. No abdominal pain or any diarrhea. EXAMINATION: Blood pressure is 168/80 with a pulse of 101, temperature of 98.1. She is 99% on room air. GENERAL DESCRIPTION: She is an elderly female, lying in bed in no distress. RESPIRATORY SYSTEM: Unlabored breathing, clear to auscultation anteriorly. HEART: S1, S2. Regular rate and rhythm. ABDOMEN: Soft, no tenderness. LABS: No new labs have been obtained today. A urine culture currently pending. Blood cultures have been negative. DIAGNOSTIC IMPRESSION AND PLAN: Patient admitted to the hospital with mental status changes, which is likely multifactorial with likely component of catheter-associated UTI. Her Urbina has been changed. Waiting for the culture to finalize. Overall improvement on Rocephin hence that will be continued, adjusting it further based on the culture report. Continue supportive care. MMODL / IJN: [id number] /
[2017-07-05 22:05] VITALS: RESP 18
[2017-07-06] MEDS: FERROUS SULFATE 325 MG TAB PO SCH ×2 (05:59→12:57)
[2017-07-06] MEDS: traMADol 50 MG TAB PO SCH (07:35)
[2017-07-06] MEDS: cefTRIAXone IN SWFI 1,000 MG/10 ML SYRINGE IVP SCH (07:36)
[2017-07-06] MEDS: ALPRAZolam 0.5 MG TAB PO PRN ×2 (07:38→17:23)
[2017-07-06] MEDS: HEPARIN SODIUM,PORCINE 5,000 UNIT/ML 1 ML VIAL SQ SCH (07:40)
[2017-07-06] MEDS: AMMONIUM LACTATE 12% LOTION 225 GM BTL TOPICAL SCH (07:41)
[2017-07-06] MEDS: TRIAMCINOLONE ACET 0.1% OINTMENT 15 GM TUBE TOPICAL SCH (07:41)
[2017-07-06 08:58] LABS: Anion Gap 9 mmol/L; Blood Urea Nitrogen 10 mg/dL (7-17); Calcium 8.9 mg/dL (8.4-10.2); Carbon Dioxide 21 mmol/L (22-30); Chloride 107 mmol/L (98-107); Glucose 65 mg/dL (74-99); Potassium 3.5 mmol/L (3.5-5.1); Sodium 137 mmol/L (137-145)
[2017-07-06 09:00] VITALS: BP 169/99; PULSE 104; TEMP 97.5
[2017-07-06 12:20] LABS: Basophils % (A) 0 %; Eosinophils # (A) 0.2 k/uL (0-0.7); Eosinophils % (A) 3 %; HCT 36.2 % (34.0-46.0); HGB 11.4 gm/dL (11.4-16.0); Hypochromasia Slight; Lymphocytes # (A) 0.6 k/uL (1.0-4.8); Lymphocytes % (A) 10 %; MCH 27.6 pg (25.0-35.0); MCHC 31.5 g/dL (31.0-37.0); MCV 87.5 fL (80.0-100.0); Monocytes # (A) 0.4 k/uL (0-1.0); Monocytes % (A) 6 %; Neutrophils # (A) 4.7 k/uL (1.3-7.7); Neutrophils % (A) 79 %; Platelet Count 357 k/uL (150-450); RBC 4.14 m/uL (3.80-5.40); RDW 15.4 % (11.5-15.5); WBC 5.9 k/uL (3.8-10.6)
--- NOTE | 2017-07-06 14:22 | P.DS ---
Providers Date of admission: 07/06/17 07:49 Expected date of discharge: 07/06/17 Attending physician: Anmol Dominique Consults: 07/03/17 15:09 Consult Physician Urgent Consulting Provider: Vick Bowles Consult Reason/Comments: tia Do you want consulting provider notified?: Yes 07/03/17 20:54 Consult Physician Routine Consulting Provider: Alexys Kent Consult Reason/Comments: sepsis Do you want consulting provider notified?: Yes Primary care physician: Chris Lassiter Hospital Course: Final Diagnoses: 1. Acute UTI with sepsis, possibly present on admission 2. Change in mental status, acute metabolic encephalopathy secondary to sepsis 3. Right arm skin tear 4. Extensive decubitus, skin tear and ulceration of the back 5. Bilateral leg venous stasis, chronic 6. Anemia, normocytic of chronic disease 7. Morbid obesity, BMI 49.9 8. Hypertension 9. Hyperlipidemia 10. DJD Hospital course: This is a 71-year-old female admitted with acute UTI with sepsis, acute metabolic encephalopathy, extensive ulcerations of the back. Evaluated by infectious disease. Maintained on gentle IV fluid hydration, antibiotics. Significant clinical improvement. Patient has been cleared by infectious disease for discharge. Patient is being discharged to [facility] in a stable condition with guarded prognosis. Physical exam:VSS, alert and oriented 3, no acute distress.CV: S1, [id number]: Bilateral bases diminished, a few scattered rhonchi and crackles.ABD: Soft nontender positive bowel sounds. NERVOUS: Mild generalized diffuse weakness. The impression and plan of care has been dictated as directed. : I performed a history and examination of this patient, discussed the same with the dictator. I agree with the dictator's note ,documented as a scribe. Any additional findings or plans will be noted. Time taken: 35 minutes Patient Condition at Discharge: Stable Plan - Discharge Summary Discharge Rx Participant: No New Discharge Prescriptions: Continue Ferrous Sulfate [Iron (65 MG Elemental)] 325 mg PO TID@0500,1300,2100 Bisacodyl [Dulcolax] 10 mg RECTAL DAILY PRN PRN Reason: Constipation Mometasone Furoate 1 applic TOPICAL BID Acetaminophen Tab [Tylenol] 650 mg PO Q6H PRN PRN Reason: Pain Baclofen [Lioresal] 10 mg PO BID PRN PRN Reason: Pain Vits A and D/White Pet/Lanolin [A and D Ointment] 1 applic TOPICAL HS Magnesium Oxide [Mag-Ox] 400 mg PO HS Sennosides [Senna] 17.2 mg PO Q24H PRN PRN Reason: Constipation Ammonium Lactate Lotion [Lac-Hydrin 12% Lotion] 1 applic TOPICAL BID #200 gm Ranitidine HCl 150 mg PO HS Cyanocobalamin [Vitamin B-12] 500 mcg PO HS Amino Acids/Protein Hydrolys [Pro-Stat Supplement] 30 ml PO W/LUNCH ALPRAZolam [Xanax] 0.5 mg PO Q8H PRN #20 tab PRN Reason: Anxiety traMADol HCL [Ultram] 50 mg PO Q4HR PRN #10 tablet PRN Reason: Pain traMADol HCl [Ultram] 50 mg PO BID@0700,1900 #10 tab Discontinued Aspirin EC [Ecotrin Low Dose] 81 mg PO HS Ibuprofen 400 mg PO Q6H PRN PRN Reason: Pain Discharge Medication List Ferrous Sulfate [Iron (65 MG Elemental)] 325 mg PO TID@0500,1300,2100 07/04/14 [ History] Bisacodyl [Dulcolax] 10 mg RECTAL DAILY PRN 08/21/16 [History] Mometasone Furoate 1 applic TOPICAL BID 08/21/16 [History] Acetaminophen Tab [Tylenol] 650 mg PO Q6H PRN 04/04/17 [History] Baclofen [Lioresal] 10 mg PO BID PRN 04/04/17 [History] Magnesium Oxide [Mag-Ox] 400 mg PO HS 04/04/17 [History] Sennosides [Senna] 17.2 mg PO Q24H PRN 04/04/17 [History] Vits A and D/White Pet/Lanolin [A and D Ointment] 1 applic TOPICAL HS 04/04/17 [ History] Ammonium Lactate Lotion [Lac-Hydrin 12% Lotion] 1 applic TOPICAL BID #200 gm [Rx] Amino Acids/Protein Hydrolys [Pro-Stat Supplement] 30 ml PO W/LUNCH 05/27/17 [ History] Cyanocobalamin [Vitamin B-12] 500 mcg PO HS 05/27/17 [History] Ranitidine HCl 150 mg PO HS 05/27/17 [History] ALPRAZolam [Xanax] 0.5 mg PO Q8H PRN #20 tab 07/06/17 [Rx] traMADol HCL [Ultram] 50 mg PO Q4HR PRN #10 tablet 07/06/17 [Rx] traMADol HCl [Ultram] 50 mg PO BID@0700,1900 #10 tab 07/06/17 [Rx] Follow up Appointment(s)/Referral(s): Chris Lassiter MD [Primary Care Provider] - 3 Days Vick Bowles MD [STAFF PHYSICIAN] - 2 Weeks Activity/Diet/Wound Care/Special Instructions: [place] [facility] antibx as per ID DIet: cardiac Activity: as tolerated CBC,bmp in 3 days
--- NOTE | 2017-07-06 23:40 | PN ---
PROGRESS NOTE DATE OF SERVICE: 07/06/2017. REASON FOR FOLLOWUP: Urinary tract infection. INTERVAL HISTORY: The patient is afebrile. She was seen on rounds this morning. She is breathing comfortably. Denies having any chest pain, shortness of breath or cough. No abdominal pain. Anxious to go home. PHYSICAL EXAMINATION: Blood pressure 169/99 with a pulse of 104, temperature 97.5. She is 97% on room air. General description is an elderly female lying in bed in no distress. RESPIRATORY SYSTEM: Unlabored breathing. Clear to auscultation anteriorly. HEART: S1, S2. Regular rate and rhythm. ABDOMEN: Soft. No tenderness. No guarding or rigidity. LABS: Hemoglobin 11.4, white count 5.9 with a BUN of 10, creatinine 0.63. Urine came back negative. DIAGNOSTIC IMPRESSION AND PLAN: Patient admitted to hospital with mental status changes, likely multifactorial, with likely component of urinary tract infection. The patient did have a positive UA. Overall improvement on Rocephin. Will finish therapy with oral Ceftin for another 4-5 days. This was discussed with the admitting physician. MMODL / IJN: [id number] /
== END 2017-07-06 19:33 | DRG 698 ==
LOC: EC 10:18 → 6SEL 15:09 → 5MS5E 07-05 16:16 → OBSVTOIN 07-06 07:49
PROVIDERS: ADMIT Hospitalist; ATTEND Hospitalist
DX: T83.511A Infection and inflammatory reaction due to indwelling urethral catheter, initial encounter (principal); A41.9 Sepsis, unspecified organism; G93.41 Metabolic encephalopathy; E66.01 Morbid (severe) obesity due to excess calories; L98.429 Non-pressure chronic ulcer of back with unspecified severity; D63.8 Anemia in other chronic diseases classified elsewhere; S41.111A Laceration without foreign body of right upper arm, initial encounter; Z68.43 Body mass index [BMI] 50.0-59.9, adult; E78.5 Hyperlipidemia, unspecified; N39.0 Urinary tract infection, site not specified; I10 Essential (primary) hypertension; M19.90 Unspecified osteoarthritis, unspecified site; I87.8 Other specified disorders of veins; N93.9 Abnormal uterine and vaginal bleeding, unspecified; Y84.6 Urinary catheterization as the cause of abnormal reaction of the patient, or of later complication, without mention of misadventure at the time of the procedure; Z87.01 Personal history of pneumonia (recurrent); Z85.3 Personal history of malignant neoplasm of breast; Z90.13 Acquired absence of bilateral breasts and nipples; Z79.899 Other long term (current) drug therapy; Z88.1 Allergy status to other antibiotic agents; Z88.8 Allergy status to other drugs, medicaments and biological substances; Z92.3 Personal history of irradiation; Z92.21 Personal history of antineoplastic chemotherapy; Z74.01 Bed confinement status; Z82.49 Family history of ischemic heart disease and other diseases of the circulatory system; Z83.3 Family history of diabetes mellitus
CPT/HCPCS: 36415; 70450; 71046; 80048; 80053; 80061; 80306; 81001; 82550; 82553; 84484; 85025; 85610; 85730; 87040; 87086; 93005; 93880; 96374; 99285

== ENCOUNTER 2017-08-27 06:38 | Inpatient (IN) | payer MEDICARE, OTHER ==
[2017-08-27] MEDS ORDERED: MAGNESIUM SULFATE-D5W PMX 1 GM in DEXTROSE/WATER 1 100ML.BAG IVPB STA (06:47)
[2017-08-27] MEDS ORDERED: SODIUM CHLORIDE 0.9% 1,000 ML IV STA (06:47)
[2017-08-27] MEDS ORDERED: methylPREDNISolone SOD SUCCI 125 MG/2 ML VIAL IV STA (06:47)
[2017-08-27] MEDS ORDERED: IPRATROPIUM-ALBUTEROL 3 ML NEB INHALATION STA (06:47)
[2017-08-27] MEDS ORDERED: IPRATROPIUM 0.5 MG/2.5 ML NEBU INHALATION STA (06:47)
[2017-08-27 06:50] LABS: Glucose,Whole Blood 369 mg/dL (75-99)
[2017-08-27 07:03] VITALS: TEMP 98
--- NOTE | 2017-08-27 07:03 | XR ---
EXAMINATION TYPE: XR chest 1V portable DATE OF EXAM: 08/27/2017 COMPARISON: Chest x-ray July 03, 2017 HISTORY: Shortness of breath, Had to be intubated TECHNIQUE: Single AP portable frontal supine view of the chest is obtained. FINDINGS: Endotracheal tube is projecting past alina into right mainstem bronchus and should be pul led back roughly 6 cm. There is new orogastric tube projecting below left hemidiaphragm. There is sta ble left subclavian Mediport catheter. Overlying EKG leads are seen. Left lateral lung base is not en tirely included making evaluation slightly suboptimal. The cardiac silhouette size is upper limits of normal with atherosclerotic thoracic aorta. The lungs are grossly clear without pleural effusion or pneumothorax. Multiple clips overlie the left lung base. Osseous structures are demineralized. IMPRESSION: 1. New endotracheal tube projects into right mainstem bronchus, recommend pulling back 6 cm. New orog astric tube felt satisfactory. 2. No suspicious acute pulmonary process. Results and recommendation of pulling back endotracheal tube called to emergency room at time of dict ation.
[2017-08-27 07:08] LABS: Glucose,Whole Blood 209 mg/dL (75-99)
[2017-08-27] MEDS ORDERED: PROPOFOL 1,000 MG in EMPTY BAG 1 BAG IV ONE (07:08)
[2017-08-27] MEDS ORDERED: DEXTROSE 50%-WATER 50 ML SYRINGE IVP STA (07:08)
--- NOTE | 2017-08-27 07:16 | ED ---
SOB HPI - General Source: family, EMS, RN notes reviewed, old records reviewed Mode of arrival: EMS Limitations: no limitations - History of Present Illness MD Complaint: shortness of breath <Bandar Zhang - Last Filed: 08/27/17 07:22> <Bandar Michael - Last Filed: 08/27/17 08:27> - General Chief Complaint: Shortness of Breath Stated Complaint: low O2 stats Time Seen by Provider: 08/27/17 06:38 - History of Present Illness Initial Comments: This is a 72-year-old female with a history of urinary tract infection with sepsis anemia multiple other medical issues who is brought in by EMS from a halfway because of decreased pulse oximetry and difficulty breathing. She also was noted to be lethargic and less responsive. Per her she seemed to be acting this way somewhat yesterday. He last saw her around 7 PM last evening. No reports of fevers chills sweats cough or phlegm production the report is currently limited. (Bandar Zhang) - Related Data Home Medications Medication Instructions Recorded Confirmed Ferrous Sulfate [Iron (65 MG 325 mg PO TID@0500,1300,2100 07/04/14 08/27/17 Elemental)] Bisacodyl [Dulcolax] 10 mg RECTAL DAILY PRN 08/21/16 08/27/17 Mometasone Furoate 1 applic TOPICAL BID 08/21/16 08/27/17 Acetaminophen Tab [Tylenol] 650 mg PO Q6H PRN 04/04/17 08/27/17 Magnesium Oxide [Mag-Ox] 400 mg PO HS 04/04/17 08/27/17 Sennosides [Senna] 17.2 mg PO Q24H PRN 04/04/17 08/27/17 Vits A and D/White Pet/Lanolin [A 1 applic TOPICAL HS 04/04/17 08/27/17 and D Ointment] Cyanocobalamin [Vitamin B-12] 500 mcg PO HS 05/27/17 08/27/17 ALPRAZolam [Xanax] 0.5 mg PO DAILY PRN 08/27/17 08/27/17 ALPRAZolam [Xanax] 0.5 mg PO QAM 08/27/17 08/27/17 Aspirin 81 mg PO HS 08/27/17 08/27/17 Jalyn-Lanta 30 ml PO Q6H PRN 08/27/17 08/27/17 Ibuprofen [Motrin Ib] 400 mg PO Q8H PRN 08/27/17 08/27/17 Ranitidine HCl [Zantac] 150 mg PO HS 08/27/17 08/27/17 Previous Rx's Medication Instructions Recorded Ammonium Lactate Lotion 1 applic TOPICAL BID #200 gm 05/18/17 [Lac-Hydrin 12% Lotion] traMADol HCL [Ultram] 50 mg PO Q4HR PRN #10 tablet 07/06/17 traMADol HCl [Ultram] 50 mg PO BID@0700,1900 #10 tab 07/06/17 Allergies Allergy/AdvReac Type Severity Reaction Status Date / Time levofloxacin [From Levaquin] Allergy Unknown Verified 08/27/17 08:00 hydrocodone AdvReac Hallucinati Verified 08/27/17 08:00 ons Review of Systems ROS Other: All systems not noted in ROS Statement are negative. Limitations: ROS unobtainable due to patients medical condition <Bandar Zhang - Last Filed: 08/27/17 07:22> ROS Other: All systems not noted in ROS Statement are negative. <Bandar Michael - Last Filed: 08/27/17 08:27> ROS Statement: Those systems with pertinent positive or pertinent negative responses have been documented in the HPI. Past Medical History Past Medical History: Cancer, Hyperlipidemia, Hypertension, Osteoarthritis (OA) , Pneumonia Additional Past Medical History / Comment(s): 08/21/16 with acute blood loss anemia from (post menopasual)vaginal bleed. Other hx: REG PERIODS CEASED IN 1999 BUT IN 2016 STARTED TO HAVE INTERMITTENT VAGINAL BLEEDING HAD D&Cx2-DID' NT HELP. SAW DRS AT [facility] AND [facility]."I WAS TOLD NOT A CANDIDATE FOR HYSTERECTOMY -PT STATED "WAS CHECKED FOR CANCER-NEG"HAD UTERINE ABLATION. urinary leakage, BILATERAL BREAST CANCER-RT LUMPECTOMY W/RADIATION AND LT PARTIAL MASECTOMY W/ RADIATION AND CHEMO. severe LYMPHEDEMA BILATERAL LEGS, venostasis-past sores on back of legs, past lower leg cellulitis, chronic anemia since 2013, UTI'S, on gout medicine for increase uric acid level but stated never had flare up of gout. djd morbid obesity,constipation. per [employer] paperwork-hx of ckd stage 2 , History of Any Multi-Drug Resistant Organisms: None Reported Past Surgical History: Adenoidectomy, Breast Surgery, Tonsillectomy Additional Past Surgical History / Comment(s): L UMPECTOMY RIGHT BREAST, partial lt masectomy/ lymph nodes removed left axillae. PICC line placed and since removed. left-sided port. Past Anesthesia/Blood Transfusion Reactions: No Reported Reaction Additional Past Anesthesia/Blood Transfusion Reaction / Comment(s): Pt has received blood in past without reaction. Past Psychological History: No Psychological Hx Reported, Anxiety Smoking Status: Never smoker Past Alcohol Use History: None Reported Past Drug Use History: None Reported - Past Family History Father Family Medical History: Coronary Artery Disease (CAD), Diabetes Mellitus, Mitral Valve Prolapse (MVP) Additional Family Medical History / Comment(s): has a porcine valve Mother Family Medical History: Chest Pain / Angina, Diabetes Mellitus Additional Family Medical History / Comment(s): weak heart <Bandar Zhang - Last Filed: 08/27/17 07:22> General Exam Limitations: no limitations General appearance: lethargic, obtunded Head exam: Present: atraumatic, normocephalic, normal inspection Eye exam: Present: normal appearance, PERRL, EOMI. Absent: scleral icterus, conjunctival injection, periorbital swelling ENT exam: Present: normal exam, mucous membranes moist Neck exam: Present: normal inspection. Absent: tenderness, meningismus, lymphadenopathy Respiratory exam: Present: respiratory distress, accessory muscle use, decreased breath sounds Cardiovascular Exam: Present: tachycardia, other (The port is present in the left chest also status post left mastectomy) GI/Abdominal exam: Present: soft, normal bowel sounds. Absent: tenderness Rectal exam: Present: deferred Extremities exam: Present: other (Stasis dermatitis with pale skin) Back exam: Absent: CVA tenderness (R), CVA tenderness (L) Neurological exam: Present: altered, other (Unable to evaluate completely) Psychiatric exam: Present: other (Unable to evaluate) Skin exam: Present: dry, intact, pallor <Bandar Zhang - Last Filed: 08/27/17 07:22> <Bandar Michael - Last Filed: 08/27/17 08:27> - General Exam Comments Initial Comments: This is a well-developed obese female who is in obvious respiratory distress with agonal respiratory effort. She did initially respond to verbal commands but again was in respiratory failure (Bandar Zhang) Course <Bandar Zhang - Last Filed: 08/27/17 07:22> <Bandar Michael N - Last Filed: 08/27/17 08:27> Vital Signs 08/27/17 08/27/17 08/27/17 06:55 07:20 07:35 Temperature 98.0 F Pulse Rate 136 H 126 H Respiratory 14 14 16 Rate Blood Pressure 65/40 70/35 O2 Sat by Pulse 80 L 97 Oximetry 08/27/17 07:59 Temperature Pulse Rate 120 H Respiratory 16 Rate Blood Pressure 90/60 O2 Sat by Pulse 97 Oximetry - Reevaluation(s) Reevaluation #1: 08/27/17 07:21 The patient care will be endorsed to Dr. Michael at shift shift change. (Bandar Zhang) Procedures - Intubation Time Out Performed: No (Immediate intubation required) Laryngoscope: [place] Size: 3 ET Tube Size: 7.5 ET Tube Uncuffed: No (Coughed) Tube Secured Depth (cm): 19 Tube Secured Location: lips Tube Placement Confirmation: visualized tube passing through cords Intubation Complications: none (The tube was in the right mainstem bronchus initiated did require repositioning.) <Bandar Zhang - Last Filed: 08/27/17 07:22> - Sepsis Sepsis Focused Exam #1 Sepsis Focused Exam Date: 08/27/17 Sepsis Focused Exam Time: 08:24 Sepsis Focused Exam Complete: Yes Vital Signs & RN Notes Reviewed: Yes Capillary Refill: > 2 Seconds: Fingers, Toes Peripheral Pulses: Weak: Radial (R) Skin Color: Ashen, Mottled, Cyanotic, Pallor Respiratory Exam: normal lung sounds Cardiovascular Exam: normal rhythm, tachycardia <Bandar Michael N - Last Filed: 08/27/17 08:27> Medical Decision Making - EKG Data -: EKG Interpreted by Dc EKG shows normal: sinus rhythm (Sinus tachycardia rate 136. Interval 148 QRS duration 100 QT since QTC 270/406 nonspecific inferior changes in the inferior lateral changes.) <Bandar Zhang - Last Filed: 08/27/17 07:22> - Lab Data Result diagrams: 08/27/17 07:01 08/27/17 07:01 <Bandar Michael - Last Filed: 08/27/17 08:27> - Medical Decision Making Repeat EKG at 80 to sinus tachycardia rate of 122, NM interval 142, QRS duration 108, QTC 404, there is ST segment depression in the lateral precordial leads, no ST segment elevation. 72-year-old female presenting in respiratory distress with agonal respirations. Patient is pale cyanotic. She is intubated by Dr. Zhang at arrival. Patient' s workup is pending at the time of sign out. Laboratory studies reveal significant abnormalities including a white blood cell count 29,000, hemoglobin 10.4 which is stable. Hyperkalemia and acute renal failure. This treated with calcium gluconate and IV hydration. She is severely acidotic with a CO2 of 7. On exam she is fluid overloaded and this is consistent with her elevated BNP of 15,000. Despite this she will receive IV hydration for septic shock. Lactic acid was called from the laboratory at 13 this is not resulting in the computer at this time. Patient is given Banko cefepime and Zosyn. She does have ecchymosis and skin breakdown throughout the bilateral lower extremities and perineum. There is no induration or crepitus in the perineum. Abdomen is soft nontender. Urinalysis is pending. Patient receives a total of 3.5 L of normal saline bolus in the emergency department. Blood pressure is up trending. Case discussed with Dr. Brennan will accept the patient to the ICU. Patient will be admitted to Dr. Dominique's service. (Bandar Michael) - Lab Data Lab Results 08/27/17 08/27/17 08/27/17 Range/Units 06:48 06:58 07:01 WBC (3.8-10.6) k/uL RBC (3.80-5.40) m/uL Hgb (11.4-16.0) gm/dL Hct (34.0-46.0) % MCV (80.0-100.0) fL MCH (25.0-35.0) pg MCHC (31.0-37.0) g/dL RDW (11.5-15.5) % Plt Count (150-450) k/uL Neutrophils % (Manual) % Band Neutrophils % % Lymphocytes % (Manual) % Monocytes % (Manual) % Eosinophils % (Manual) % Metamyelocytes % % Neutrophils # (Manual) (1.3-7.7) k/uL Lymphocytes # (Manual) (1.0-4.8) k/uL Monocytes # (Manual) (0-1.0) k/uL Eosinophils # (Manual) (0-0.7) k/uL Metamyelocytes # (Man) (0) k/uL Nucleated RBCs (0-0) /100 WBC Manual Slide Review Toxic Granulation Toxic Vacuolation Hypochromasia Poikilocytosis (manual PT (9.0-12.0) sec INR (<1.2) APTT (22.0-30.0) sec D-Dimer (<0.60) mg/L FEU Sodium (137-145) mmol/L Potassium (3.5-5.1) mmol/L Chloride (98-107) mmol/L Carbon Dioxide (22-30) mmol/L Anion Gap mmol/L BUN (7-17) mg/dL Creatinine (0.52-1.04) mg/dL Est GFR (CKD-EPI)AfAm (>60 ml/min/1.73 sqM) Est GFR (CKD-EPI)NonAf (>60 ml/min/1.73 sqM) Glucose (74-99) mg/dL POC Glucose (mg/dL) 369 H 209 H (75-99) mg/dL POC Glu Stock Trader ID Philippe Barron Jason Plasma Lactic Acid Salvador (0.7-2.0) mmol/L Calcium (8.4-10.2) mg/dL Magnesium (1.6-2.3) mg/dL Total Bilirubin (0.2-1.3) mg/dL AST (14-36) U/L ALT (9-52) U/L Alkaline Phosphatase (38-126) U/L Ammonia 52 H (<30) umol/L Total Creatine Kinase (30-135) U/L CK-MB (CK-2) (0.0-2.4) ng/mL CK-MB (CK-2) Rel Index Troponin I (0.000-0.034) ng/mL NT-Pro-B Natriuret Pep pg/mL Total Protein (6.3-8.2) g/dL Albumin (3.5-5.0) g/dL Blood Type Blood Type Recheck Antibody Screen Spec Expiration Date 08/27/17 08/27/17 08/27/17 Range/Units 07:01 07:01 07:01 WBC 29.5 H* (3.8-10.6) k/uL RBC 3.74 L (3.80-5.40) m/uL Hgb 10.4 L (11.4-16.0) gm/dL Hct 35.1 (34.0-46.0) % MCV 94.1 D (80.0-100.0) fL MCH 27.9 (25.0-35.0) pg MCHC 29.6 L (31.0-37.0) g/dL RDW 15.6 H (11.5-15.5) % Plt Count 518 H (150-450) k/uL Neutrophils % (Manual) 84 % Band Neutrophils % 8 % Lymphocytes % (Manual) 4 % Monocytes % (Manual) 2 % Eosinophils % (Manual) 1 % Metamyelocytes % 1 % Neutrophils # (Manual) 27.10 H (1.3-7.7) k/uL Lymphocytes # (Manual) 1.18 (1.0-4.8) k/uL Monocytes # (Manual) 0.59 (0-1.0) k/uL Eosinophils # (Manual) 0.30 (0-0.7) k/uL Metamyelocytes # (Man) 0.30 H (0) k/uL Nucleated RBCs 0 (0-0) /100 WBC Manual Slide Review Performed Toxic Granulation Present Toxic Vacuolation Present Hypochromasia Marked Poikilocytosis (manual Present PT (9.0-12.0) sec INR (<1.2) APTT (22.0-30.0) sec D-Dimer (<0.60) mg/L FEU Sodium 128 L (137-145) mmol/L Potassium 6.6 H* (3.5-5.1) mmol/L Chloride 101 (98-107) mmol/L Carbon Dioxide 7 L* (22-30) mmol/L Anion Gap 20 mmol/L BUN 24 H (7-17) mg/dL Creatinine 1.50 H (0.52-1.04) mg/dL Est GFR (CKD-EPI)AfAm 40 (>60 ml/min/1.73 sqM) Est GFR (CKD-EPI)NonAf 35 (>60 ml/min/1.73 sqM) Glucose 140 H (74-99) mg/dL POC Glucose (mg/dL) (75-99) mg/dL POC Glu Stock Trader ID Plasma Lactic Acid Salvador (0.7-2.0) mmol/L Calcium 9.3 (8.4-10.2) mg/dL Magnesium 2.7 H (1.6-2.3) mg/dL Total Bilirubin 0.3 (0.2-1.3) mg/dL AST 65 H (14-36) U/L ALT 16 (9-52) U/L Alkaline Phosphatase 114 (38-126) U/L Ammonia (<30) umol/L Total Creatine Kinase 67 (30-135) U/L CK-MB (CK-2) 1.6 (0.0-2.4) ng/mL CK-MB (CK-2) Rel Index 2.4 Troponin I 0.028 (0.000-0.034) ng/mL NT-Pro-B Natriuret Pep pg/mL Total Protein 3.9 L (6.3-8.2) g/dL Albumin 1.4 L (3.5-5.0) g/dL Blood Type Blood Type Recheck Antibody Screen Spec Expiration Date 08/27/17 08/27/17 08/27/17 Range/Units 07:01 07:01 07:01 WBC (3.8-10.6) k/uL RBC (3.80-5.40) m/uL Hgb (11.4-16.0) gm/dL Hct (34.0-46.0) % MCV (80.0-100.0) fL MCH (25.0-35.0) pg MCHC (31.0-37.0) g/dL RDW (11.5-15.5) % Plt Count (150-450) k/uL Neutrophils % (Manual) % Band Neutrophils % % Lymphocytes % (Manual) % Monocytes % (Manual) % Eosinophils % (Manual) % Metamyelocytes % % Neutrophils # (Manual) (1.3-7.7) k/uL Lymphocytes # (Manual) (1.0-4.8) k/uL Monocytes # (Manual) (0-1.0) k/uL Eosinophils # (Manual) (0-0.7) k/uL Metamyelocytes # (Man) (0) k/uL Nucleated RBCs (0-0) /100 WBC Manual Slide Review Toxic Granulation Toxic Vacuolation Hypochromasia Poikilocytosis (manual PT 15.3 H (9.0-12.0) sec INR 1.7 H (<1.2) APTT 34.9 H (22.0-30.0) sec D-Dimer 1.00 H (<0.60) mg/L FEU Sodium (137-145) mmol/L Potassium (3.5-5.1) mmol/L Chloride (98-107) mmol/L Carbon Dioxide (22-30) mmol/L Anion Gap mmol/L BUN (7-17) mg/dL Creatinine (0.52-1.04) mg/dL Est GFR (CKD-EPI)AfAm (>60 ml/min/1.73 sqM) Est GFR (CKD-EPI)NonAf (>60 ml/min/1.73 sqM) Glucose (74-99) mg/dL POC Glucose (mg/dL) (75-99) mg/dL POC Glu Stock Trader ID Plasma Lactic Acid Salvador (0.7-2.0) mmol/L Calcium (8.4-10.2) mg/dL Magnesium (1.6-2.3) mg/dL Total Bilirubin (0.2-1.3) mg/dL AST (14-36) U/L ALT (9-52) U/L Alkaline Phosphatase (38-126) U/L Ammonia (<30) umol/L Total Creatine Kinase (30-135) U/L CK-MB (CK-2) (0.0-2.4) ng/mL CK-MB (CK-2) Rel Index Troponin I (0.000-0.034) ng/mL NT-Pro-B Natriuret Pep 56050 pg/mL Total Protein (6.3-8.2) g/dL Albumin (3.5-5.0) g/dL Blood Type O Negative Blood Type Recheck No Antibody Screen NEGATIVE Spec Expiration Date 08/30/2017 - 2301 05/10/18 Range/Units 07:29 WBC (3.8-10.6) k/uL RBC (3.80-5.40) m/uL Hgb (11.4-16.0) gm/dL Hct (34.0-46.0) % MCV (80.0-100.0) fL MCH (25.0-35.0) pg MCHC (31.0-37.0) g/dL RDW (11.5-15.5) % Plt Count (150-450) k/uL Neutrophils % (Manual) % Band Neutrophils % % Lymphocytes % (Manual) % Monocytes % (Manual) % Eosinophils % (Manual) % Metamyelocytes % % Neutrophils # (Manual) (1.3-7.7) k/uL Lymphocytes # (Manual) (1.0-4.8) k/uL Monocytes # (Manual) (0-1.0) k/uL Eosinophils # (Manual) (0-0.7) k/uL Metamyelocytes # (Man) (0) k/uL Nucleated RBCs (0-0) /100 WBC Manual Slide Review Toxic Granulation Toxic Vacuolation Hypochromasia Poikilocytosis (manual PT (9.0-12.0) sec INR (<1.2) APTT (22.0-30.0) sec D-Dimer (<0.60) mg/L FEU Sodium (137-145) mmol/L Potassium (3.5-5.1) mmol/L Chloride (98-107) mmol/L Carbon Dioxide (22-30) mmol/L Anion Gap mmol/L BUN (7-17) mg/dL Creatinine (0.52-1.04) mg/dL Est GFR (CKD-EPI)AfAm (>60 ml/min/1.73 sqM) Est GFR (CKD-EPI)NonAf (>60 ml/min/1.73 sqM) Glucose (74-99) mg/dL POC Glucose (mg/dL) 192 H (75-99) mg/dL POC Glu Stock Trader ID Plasma Lactic Acid Salvador (0.7-2.0) mmol/L Calcium (8.4-10.2) mg/dL Magnesium (1.6-2.3) mg/dL Total Bilirubin (0.2-1.3) mg/dL AST (14-36) U/L ALT (9-52) U/L Alkaline Phosphatase (38-126) U/L Ammonia (<30) umol/L Total Creatine Kinase (30-135) U/L CK-MB (CK-2) (0.0-2.4) ng/mL CK-MB (CK-2) Rel Index Troponin I (0.000-0.034) ng/mL NT-Pro-B Natriuret Pep pg/mL Total Protein (6.3-8.2) g/dL Albumin (3.5-5.0) g/dL Blood Type Blood Type Recheck Antibody Screen Spec Expiration Date Critical Care Time Critical Care Time: Yes <Bandar Zhang - Last Filed: 08/27/17 07:22> <Bandar Michael - Last Filed: 08/27/17 08:27> Critical Care Time: Initial critical care time 32 minutes which included the initial assessment of the patient with limited history physical discussed with the patient's was present discussed with paramedics. This does not include the intubation time. Says include review of old charting initial orders and x-ray and EKG evaluations. (Bandar Zhang) Disposition <Bandar Zhang - Last Filed: 08/27/17 07:22> Is patient prescribed a controlled substance at d/c from ED?: No Decision to Admit Reason: Admit from EC Decision Date: 08/27/17 Decision Time: 08:27 <Bandar Michael - Last Filed: 08/27/17 08:27> Clinical Impression: Skin lesion, Acute kidney injury, Lymphedema of both lower extremities, Sepsis , Septic shock, Respiratory failure with hypoxia Disposition: ADMITTED IP TO THIS HOSP Condition: Poor Referrals: Chris Lassiter MD [Primary Care Provider] - 1-2 days
[2017-08-27 07:22] LABS: HCT 35.1 % (34.0-46.0); HGB 10.4 gm/dL (11.4-16.0); Hypochromasia Marked; MCH 27.9 pg (25.0-35.0); MCHC 29.6 g/dL (31.0-37.0); Mean Platelet Volume 7.3; Platelet Count 518 k/uL (150-450); RBC 3.74 m/uL (3.80-5.40); RDW 15.6 % (11.5-15.5)
[2017-08-27 07:30] LABS: WBC 29.5 k/uL (3.8-10.6)
[2017-08-27 07:32] LABS: Albumin 1.4 g/dL (3.5-5.0); Calcium 9.3 mg/dL (8.4-10.2); Total Bilirubin 0.3 mg/dL (0.2-1.3); Total Protein 3.9 g/dL (6.3-8.2)
[2017-08-27 07:35] LABS: MCV 94.1 fL (80.0-100.0)
[2017-08-27] MEDS ORDERED: SODIUM CHLORIDE 0.9% 1,000 ML IV ONE ×3 (07:37→08:11)
[2017-08-27] MEDS ORDERED: VANCOMYCIN IV PER PHARMACY 1 EACH MISC MISCELLANE PRN (07:38)
[2017-08-27] MEDS ORDERED: CEFEPIME 2 GM in SODIUM CHLORIDE 0.9% 50 ML IVPB STA (07:38)
[2017-08-27 07:41] LABS: Magnesium 2.7 mg/dL (1.6-2.3); Potassium 6.6 mmol/L (3.5-5.1)
[2017-08-27 07:42] VITALS: RESP 16
[2017-08-27] MEDS ORDERED: CALCIUM GLUCONATE 1,000 MG in SODIUM CHLORIDE 0.9% 100 ML IVPB ONE ×2 (07:45→11:21)
[2017-08-27 07:47] LABS: Glucose,Whole Blood 192 mg/dL (75-99)
[2017-08-27] MEDS ORDERED: PIPERACILLIN-TAZOBACTAM 3.375 GM in DEXTROSE/WATER 1 50ML.BAG IVPB STA (07:47)
[2017-08-27 07:48] LABS: INR 1.7 (<1.2); Partial Thromboplastin Time 34.9 sec (22.0-30.0); Prothrombin Time 15.3 sec (9.0-12.0)
[2017-08-27 07:55] LABS: Creatine Kinase MB 1.6 ng/mL (0.0-2.4); Troponin I 0.028 ng/mL (0.000-0.034)
[2017-08-27 07:56] LABS: Band Neutrophils % 8 %; Lymphocytes # (M) 1.18 k/uL (1.0-4.8); Metamyelocytes % 1 %; Monocytes # (M) 0.59 k/uL (0-1.0); Neutrophils % (M) 84 %; Nucleated Red Blood Cells 0 /100 WBC (0-0); Total Cells Counted 100
[2017-08-27 07:57] LABS: Poikilocytosis (M) Present; Toxic Granulation Present; Toxic Vacuolation Present
[2017-08-27 08:11] LABS: Appearance,Urine Cloudy (Clear); Color,Urine Light Red
[2017-08-27 08:12] LABS: Specific Gravity,Urine 1.005 (1.001-1.035)
[2017-08-27] MEDS ORDERED: ACETAMINOPHEN TAB 325 MG TAB PO PRN (08:12)
[2017-08-27] MEDS ORDERED: NALOXONE 0.4 MG/ML 1 ML VIAL IV PRN (08:12)
[2017-08-27 08:15] LABS: Glucose,Urine (UA) Negative (Negative); Protein,Urine 2+ (Negative)
[2017-08-27 08:16] LABS: Bilirubin,Urine Negative (Negative); Ketones,Urine Negative (Negative)
[2017-08-27 08:18] LABS: Blood,Urine Large (Negative); Nitrite,Urine Negative (Negative); Urobilinogen,Urine <2.0 mg/dL (<2.0)
[2017-08-27 08:19] LABS: Leukocyte Esterase,Urine Large (Negative)
[2017-08-27 08:21] LABS: RBC,Urine 100 /hpf (0-5); WBC,Urine 5 /hpf (0-5)
[2017-08-27 08:22] LABS: Amorphous Sediment,Urine Moderate /hpf; Bacteria,Urine Few /hpf; Squamous Epithelial Cell,Urine 5 /hpf (0-4)
[2017-08-27 08:35] LABS: Lactic Acid, Venous 13.3 mmol/L (0.7-2.0)
[2017-08-27] MEDS ORDERED: VANCOMYCIN 1,750 MG in SODIUM CHLORIDE 0.9% 250 ML IVPB SCH (09:00)
--- NOTE | 2017-08-27 09:39 | XR ---
EXAMINATION TYPE: XR chest 1V portable DATE OF EXAM: 08/27/2017 COMPARISON: 08/27/2017 HISTORY: ET tube adjustment TECHNIQUE: Single frontal view of the chest is obtained. FINDINGS: ET tube 2.6 cm above alina. Mediport catheter seen. Surgical clips overlying the left low er chest. No pneumothorax or overt congestion. Heart size stable. Tiny right pleural effusion or thic kening noted. NG tube noted. IMPRESSION: 1. Tiny right pleural effusion or pleural thickening.
[2017-08-27 09:46] LABS: ABG Base Excess -25.5 mmol/L; ABG PO2 >400 mmHg (83-108); ABG TCO2 6 mmol/L (19-24)
[2017-08-27] MEDS ORDERED: NOREPINEPHRIN 4 MG-0.9% NS PMX 4 MG/250 ML ML IV SCH (10:00)
[2017-08-27 10:06] LABS: ABG PH 7.03 (7.35-7.45)
[2017-08-27 10:10] LABS: ABG PCO2 20 mmHg (35-45)
[2017-08-27 10:11] LABS: ABG HCO3 5 mmol/L (21-25)
[2017-08-27] MEDS ORDERED: DEXTROSE 5% IN WATER 1,000 ML with SODIUM BICARB (1 MEQ/ML) 150 ML IV SCH (11:30)
[2017-08-27 12:29] VITALS: BP 53/30; PULSE 111
[2017-08-27 13:38] VITALS: BMI 31.3
--- NOTE | 2017-08-27 22:35 | HP ---
HISTORY AND PHYSICAL HISTORY AND PHYSICAL/DISCHARGE SUMMARY: This is a combination history, physical and discharge summary of a Ivania Anderson. PRELIMINARY CAUSE OF : Possible sepsis. OTHER DIAGNOSES: 1. Possible sepsis, septic shock from possible urinary tract infection. 2. Previous history of urinary tract infection. 3. Sepsis. 4. Hypertension. 5. Hyperlipidemia. 6. Degenerative joint disease. 7. History of pneumonia. HISTORY OF PRESENT ILLNESS: This 72-year-old woman with a past medical history of multiple medical problems including UTI with sepsis, history of hypertension, hysterectomy was recently admitted to [facility] with complaints of UTI, sepsis. Patient had change in mental status. Patient is a resident of [facility] and the patient was sent from [facility] with complaints of shortness of breath and also hypoxia. The patient had acute respiratory failure. Patient is mechanically ventilated, but however the patient's condition worsened and family opted for NO CODE NO CPR NO VENT and the patient subsequently, succumbed to her above mentioned illness. The prognosis was extremely guarded. PAST MEDICAL HISTORY: Hypertension, hyperlipidemia, DJD, history pneumonia, cancer. MEDICATIONS: Prior to admission home medications are: 1. Ultram 50 mg q.4h p.r.n. 2. Xanax 0.5 daily p.r.n. 4. Motrin. 5. Tylenol. 6. Dulcolax. 7. Ultram. 8. Iron sulfate. 10.Xanax. 11.Multivitamins. 12.Ranitidine. 13.Magnesium oxide. 14.Aspirin. PHYSICAL EXAM: Patient is on mechanical ventilation. The pulse is 118, blood pressure 91/50, respiration 16. The vent settings are noted. Pulse ox 98% on mechanical ventilation. HEENT: Conjunctivae normal. Oral mucosa moist. Neck is no JVD. Cardiac systems: S1, S2. Respirations: Breath sounds diminished in the bases. A few scattered rhonchi and crackles. ABDOMEN: Soft. Central nervous system: The patient is mechanically ventilated and sedated. LABS: WBC 29.2, hemoglobin 10.4, INR 1.7, ABGs noted. RECOMMENDATIONS AND DISCUSSION: This 72-year-old woman admitted with multiple complex medical issues, had features of possible sepsis. The patient treated with empiric antibiotics. Cefepime was initiated, but however the patient's condition worsened. Patient developed hypotension and family opted for NO CPR and NO CODE, and the patient succumbed to above mentioned illness. Prognosis was extremely guarded throughout the hospital stay. Please refer to the multiple notes for further information. MMODL / IJN: [id number] / RAMIN
== END 2017-08-27 14:32 | disposition expired | DRG 871 ==
LOC: EC 06:38 → 6ICU 08:12
PROVIDERS: ADMIT Hospitalist; ATTEND Hospitalist
PROC: 0BH17EZ Insertion of Endotracheal Airway into Trachea, Via Natural or Artificial Opening (ICD-10-PCS; principal; 2017-08-27)
PROC: 5A1935Z Respiratory Ventilation, Less than 24 Consecutive Hours (ICD-10-PCS; 2017-08-27)
DX: A41.9 Sepsis, unspecified organism (principal); R65.21 Severe sepsis with septic shock; J96.01 Acute respiratory failure with hypoxia; N39.0 Urinary tract infection, site not specified; N17.9 Acute kidney failure, unspecified; E87.2 Acidosis; E78.5 Hyperlipidemia, unspecified; I95.9 Hypotension, unspecified; E11.22 Type 2 diabetes mellitus with diabetic chronic kidney disease; Z66 Do not resuscitate; R00.0 Tachycardia, unspecified; N18.2 Chronic kidney disease, stage 2 (mild); I12.9 Hypertensive chronic kidney disease with stage 1 through stage 4 chronic kidney disease, or unspecified chronic kidney disease; E87.70 Fluid overload, unspecified; E87.5 Hyperkalemia; M19.90 Unspecified osteoarthritis, unspecified site; I89.0 Lymphedema, not elsewhere classified; L98.9 Disorder of the skin and subcutaneous tissue, unspecified; M10.9 Gout, unspecified; Z87.01 Personal history of pneumonia (recurrent); Z87.440 Personal history of urinary (tract) infections; Z90.710 Acquired absence of both cervix and uterus; Z79.899 Other long term (current) drug therapy; Z79.82 Long term (current) use of aspirin; Z79.1 Long term (current) use of non-steroidal anti-inflammatories (NSAID); Z88.1 Allergy status to other antibiotic agents; Z88.5 Allergy status to narcotic agent; Z83.3 Family history of diabetes mellitus; Z82.49 Family history of ischemic heart disease and other diseases of the circulatory system; Z90.12 Acquired absence of left breast and nipple; Z85.3 Personal history of malignant neoplasm of breast; Z90.89 Acquired absence of other organs
CPT/HCPCS: 31500; 36415; 43753; 71045; 80053; 81001; 82140; 82550; 82553; 82805; 83605; 83735; 83880; 84484; 85025; 85379; 85610; 85730; 86850; 86900; 86901; 87040; 87086; 93005; 94002; 96365; 96368; 96375; 99291